=== PATIENT | male | born 1945 | race Caucasian/White ===

== ENCOUNTER → 2017-03-19 | Outpatient (REF) | payer MEDICARE, BC, OTHER | LOC: M LAB REF 16:16 | PROVIDERS: ATTEND Podiatrist | DX: L97.512 Non-pressure chronic ulcer of other part of right foot with fat layer exposed (principal); L89.893 Pressure ulcer of other site, stage 3 ==

== ENCOUNTER 2018-04-29 08:51 | Day surgery (SDC) | payer MEDICARE, BC, OTHER ==
[2018-04-29] MEDS: NS 1,000 ML IV (09:15)
[2018-04-29] MEDS ORDERED: LIDOCAINE 2% INJ 100 MG/5 ML SDV (FOR ANES.) As Ordered (11:08)
[2018-04-29] MEDS ORDERED: PROPOFOL 500 MG/50 ML VIAL As Ordered (11:08)
== END 2018-04-29 11:51 | disposition home or self-care (01) ==
LOC: M OPP 08:51
DX: Z08 Encounter for follow-up examination after completed treatment for malignant neoplasm (principal); Z85.038 Personal history of other malignant neoplasm of large intestine; Z86.010 Personal history of colon polyps; Z98.0 Intestinal bypass and anastomosis status; D12.4 Benign neoplasm of descending colon; K64.0 First degree hemorrhoids; K57.30 Diverticulosis of large intestine without perforation or abscess without bleeding; R00.8 Other abnormalities of heart beat; Z86.79 Personal history of other diseases of the circulatory system; I48.91 Unspecified atrial fibrillation; I10 Essential (primary) hypertension; E78.5 Hyperlipidemia, unspecified; E11.9 Type 2 diabetes mellitus without complications; M10.9 Gout, unspecified; E03.9 Hypothyroidism, unspecified; G62.9 Polyneuropathy, unspecified; Z94.0 Kidney transplant status; Q61.3 Polycystic kidney, unspecified; T38.7X5D Adverse effect of androgens and anabolic congeners, subsequent encounter; Z87.442 Personal history of urinary calculi; Z96.643 Presence of artificial hip joint, bilateral; Z87.891 Personal history of nicotine dependence; Z79.82 Long term (current) use of aspirin; Z79.899 Other long term (current) drug therapy; Z79.84 Long term (current) use of oral hypoglycemic drugs; Z79.52 Long term (current) use of systemic steroids; Z80.8 Family history of malignant neoplasm of other organs or systems
CPT/HCPCS: 45385

== ENCOUNTER → 2019-03-03 | Outpatient (REF) | payer MEDICARE, OTHER ==
[~2019-03-03] MED LIST: ASPI81TA26 PO; COMB0.2S OS; DULO1CAP3; ENAL2.5T; GEMF600T5; GLIP5TAB8; IMUR50TA10 PO; METF500T13; PRED20TA PO; SYNT100T
== END ==
LOC: M LAB REF 15:16
PROVIDERS: ATTEND Internal Medicine Gastroenterology
DX: R19.7 Diarrhea, unspecified (principal)

== ENCOUNTER → 2019-03-03 | Outpatient (CLI) | payer MEDICARE, BC, OTHER ==
[2019-03-03 19:05] LABS: BASO % 0.2 % (0.0-1.0); EOS % 0.3 % (0.0-3.0); HEMATOCRIT 41.6 % (42.0-52.0); HEMOGLOBIN 13.8 g/dl (13.5-17.5); LYMPH # 1.3 10^3/uL (1.5-4.5); LYMPH % 14.2 % (24.0-44.0); MEAN CORPUSCULAR HEMOGLOBIN 31.9 pg (27.0-33.0); MEAN CORPUSCULAR HGB CONC 33.2 g/dl (32.0-36.5); MEAN CORPUSCULAR VOLUME 96.1 fl (80.0-96.0); MONO # 0.3 10^3/uL (0.0-0.8); MONO % 3.5 % (0.0-5.0); NEUTROPHILS # 7.3 10^3/uL (1.8-7.7); NEUTROPHILS % 81.5 % (36.0-66.0); PLATELET COUNT, AUTOMATED 186 10^3/uL (150-450); RED BLOOD COUNT 4.33 10^6/uL (4.30-6.10)
[2019-03-03 20:42] LABS: ALBUMIN 3.1 GM/DL (3.2-5.2); ALT/SGPT 7 U/L (12-78); BILIRUBIN,TOTAL 0.4 MG/DL (0.2-1.0); BLOOD UREA NITROGEN 35 MG/DL (7-18); C REACTIVE PROTEIN QUANTITATIV < 0.30 MG/DL (0.00-0.30); CALCIUM LEVEL 8.5 MG/DL (8.8-10.2); CARBON DIOXIDE LEVEL 23 MEQ/L (21-32); CHLORIDE LEVEL 104 MEQ/L (98-107); CREATININE FOR GFR 1.42 MG/DL (0.70-1.30); GLUCOSE, FASTING 250 MG/DL (70-100); POTASSIUM SERUM 4.6 MEQ/L (3.5-5.1); SODIUM LEVEL 137 MEQ/L (136-145); TOTAL PROTEIN 5.9 GM/DL (6.4-8.2)
== END ==
LOC: M SMT 14:56
PROVIDERS: ATTEND Internal Medicine Gastroenterology
DX: R19.7 Diarrhea, unspecified (principal)

== ENCOUNTER 2020-03-25 22:16 | Inpatient (IN) | payer MEDICARE, BC, OTHER ==
[~2020-03-25] VITALS: Ht 190.5 cm; Wt 96.2 kg
[~2020-03-25 22:16] MED LIST changes: -DULO1CAP3; +DULO1CAP6 PO; -ENAL2.5T; +ENAL2.5T PO; -GEMF600T5; +GEMF600T5 PO; -GLIP5TAB8; +GLIP5TAB8 PO; -SYNT100T; +SYNT100T PO
[2020-03-25] MEDS ORDERED: NS 1,000 ML IV SCH ×2 (22:34→23:33)
[2020-03-25] MEDS ORDERED: MORPHINE 4 MG/ML 1ML VIAL/SYRINGE (J2270) IV ONE (22:45)
[2020-03-25] MEDS ORDERED: ONDANSETRON 4MG/2ML VIAL IV ONE (22:45)
[2020-03-25 22:50] LABS: HEMATOCRIT 35.4 % (42.0-52.0); HEMOGLOBIN 11.9 g/dl (13.5-17.5); MEAN CORPUSCULAR HEMOGLOBIN 30.1 pg (27.0-33.0); MEAN CORPUSCULAR HGB CONC 33.6 g/dl (32.0-36.5); MEAN CORPUSCULAR VOLUME 89.4 fl (80.0-96.0); PLATELET COUNT, AUTOMATED 150 10^3/uL (150-450); RED BLOOD COUNT 3.96 10^6/uL (4.30-6.10); WHITE BLOOD COUNT 12.8 10^3/uL (4.0-10.0)
[2020-03-25 23:01] LABS: INR 1.35; PROTHROMBIN TIME 16.4 SECONDS (11.8-14.0)
[2020-03-25 23:02] LABS: PARTIAL THROMBOPLASTIN TIME 46.8 SECONDS (25.0-38.4)
[2020-03-25 23:11] LABS: ANISOCYTOSIS 1+; LYMPHOCYTES 6 % (16-44); MONOCYTES 4 % (0-5); NEUTROPHILS 89 % (28-66); NUCLEATED RED BLOOD CELL 1 % (0-0)
[2020-03-25 23:12] LABS: PLATELET ESTIMATE NORMAL (NORMAL)
[2020-03-25] MEDS ORDERED: DEXTROSE 50% 50 ML SYRINGE IV STA (23:21)
[2020-03-25] MEDS ORDERED: DEXTROSE 50% 50 ML SYRINGE As Ordered ONE (23:22)
[2020-03-25 23:33] LABS: CALCIUM LEVEL 8.1 MG/DL (8.8-10.2); CREATININE FOR GFR 1.66 MG/DL (0.70-1.30); GLOMERULAR FILTRATION RATE 43.3 (>42); POTASSIUM SERUM 4.5 MEQ/L (3.5-5.1)
[2020-03-25] MEDS ORDERED: fentaNYL 100 MCG/2 ML INJECTION (J3010) IV PRN (23:45)
[2020-03-25] MEDS: MIDAZOLAM INJ 2MG/2ML VIAL (J2250 PER 1MG) IV PRN ×2 (23:50→23:55)
[2020-03-26] MEDS: MIDAZOLAM INJ 2MG/2ML VIAL (J2250 PER 1MG) IV PRN
[2020-03-26] MEDS ORDERED: DEXTROSE 50% 50 ML SYRINGE IV STA (00:21)
[2020-03-26] MEDS: D5W/0.9% SODIUM CHLORIDE 1,000 ML IV SCH ×2 (00:29→15:02)
[2020-03-26] MEDS ORDERED: MICR1TAB5 PO (00:44)
[2020-03-26] MEDS ORDERED: PERCOCET 5MG/325MG TAB PO PRN (01:00)
--- NOTE | 2020-03-26 01:34 | HPEPDOC ---
[facility] Medical History & Physical Date of Admission Mar 26, 2020 Date of Service: Mar 26, 2020 Attending Physician: BASIM LUNDBERG MD History and Physical CHIEF COMPLAINT: Fall HISTORY OF PRESENT ILLNESS: 74-year-old male with past medical history of diabetes mellitus, polycystic kidney disease status post renal transplant, hypertension and hypothyroidism presents from home after fall. Patient was walking to the bathroom, while leaning forward to sit down he fell, denies loss of consciousness, no other symptoms prior to or after the fall. Imaging in the ED consistent with left hip dislocation, underwent closed reduction in the emergency department. Patient appears comfortable, now pain-free at this time. He was found to be hypoglycemic in the emergency department, reports taking glipizide, poor oral intake for the past 1-2 days. He denies any shortness of breath, chest pain, nausea, vomiting, diarrhea or constipation. 10 point review of systems negative except for above PAST MEDICAL HISTORY: 1. Diabetes mellitus. 2. Hypertension. 3. Polycystic kidney disease. PAST SURGICAL HISTORY: 1. Renal transplant. 2. Hip replacements. 3. Cholecystectomy. SOCIAL HISTORY: Denies smoking Denies alcohol use. Denies drug use FAMILY HISTORY: Positive for heart disease ALLERGIES: Please see below. HOME MEDICATIONS: Please see below. PHYSICAL EXAMINATION: VITAL SIGNS: Please see below. GENERAL: No distress HEENT: Normocephalic, atraumatic, moist mucous membranes NECK: Supple CARDIOVASCULAR EXAMINATION: S1, S2, no murmurs RESPIRATORY EXAMINATION: Clear to auscultation, no wheezing ABDOMINAL EXAMINATION: Soft, nontender, nondistended, positive bowel sounds EXTREMITIES: No edema SKIN: No rash NEUROLOGICAL EXAMINATION: Alert and oriented 3, no focal deficits PSYCHIATRIC EXAMINATION: Calm and cooperative LABORATORY DATA: See below. IMAGING: Pelvic/fever x-ray showing left hip dislocation MICROBIOLOGY: Please see below. ASSESSMENT: 74-year-old male with past medical history of pulses kidney disease, status post transplant, diabetes mellitus and hypertension is being admitted for left hip dislocation and hypoglycemia. PLAN: 1. Left hip dislocation. Secondary to fall, reduced in the ER, orthopedic eval pending in the morning, pain control. 2. Hypoglycemia. Secondary to glipizide, received dextrose in the ER, continue IV fluids with dextrose, will repeat fingerstick. 3. Diabetes mellitus. Sliding scale insulin coverage with meals and at bedtime. 4. Hypertension. Continue enalapril 5. Polycystic kidney disease. Status post renal transplant, continue prednisone and azathioprine. DVT prophylaxis: Heparin subcutaneous GI prophylaxis: Not needed Vital Signs Vital Signs Date Time Temp Pulse Resp B/P (MAP) Pulse Ox O2 Delivery O2 Flow Rate FiO2 03/26/20 00:45 89 16 126/60 (82) 98 Room Air 03/25/20 23:55 4.0 03/25/20 22:27 97.8 Laboratory Data Labs 24H Laboratory Tests 2 03/25/20 22:38: Neutrophils (%) (Auto) , Nucleated Red Blood Cells % (auto) 0.0, Neutrophils 89H, Band Neutrophils 1, Lymphocytes (Manual) 6L, Monocytes (Manual) 4, Nucleated Red Blood Cells 1H, Anisocytosis 1+, Platelet Estimate NORMAL, Prothrombin Time 16.4H, Prothromb Time International Ratio 1.35, Activated Partial Thromboplast Time 46.8H, Anion Gap 11, Glomerular Filtration Rate 43.3, Calcium Level 8.1L 03/25/20 23:20: Bedside Glucose (Misc Panel) 38*L 03/25/20 23:54: Bedside Glucose (Misc Panel) 98 03/26/20 00:20: Bedside Glucose (Misc Panel) 63L CBC/BMP Laboratory Tests 03/25/20 22:38 Home Medications Scheduled Aspirin (Aspirin EC) 81 Mg Tab, 81 MG PO DAILY Azathioprine (Imuran) 50 Mg Tab, 150 MG PO DAILY Brimonidine Tartrate/Timolol (Combigan 0.2%-0.5% Eye Drops) 1 Disha Disha, OS BID Colestipol HCl (Micronized Colestipol HCl) 1 Gm Tablet, 2 GM PO BID Duloxetine Hcl (Duloxetine HCl) 60 Mg Cap, DAILY Enalapril Maleate (Enalapril Maleate) 2.5 Mg Tab, DAILY Gemfibrozil (Gemfibrozil) 600 Mg Tab, TID Glipizide (Glipizide) 5 Mg Tab, BID Levothyroxine Sodium (Synthroid) 100 Mcg Tab, DAILY Metformin HCl (Metformin HCl) 500 Mg Tab, BID Prednisone (Prednisone) 20 Mg Tab, 20 MG PO Q2D Allergies Coded Allergies: No Known Allergies (Unverified , 04/25/18) A-FIB/CHADSVASC A-FIB History Current/History of A-Fib/PAF?: No GONDAL,KHUBAIB N. MD Mar 26, 2020 01:34
[2020-03-26] MEDS ORDERED: GLUCAGON INJ 1MG VIAL SC PRN (02:00)
[2020-03-26] MEDS ORDERED: GLUCOSE 4GM CHEW TABLET PO PRN (02:00)
[2020-03-26 02:09] VITALS: BP 102/54
[2020-03-26] MEDS: DEXTROSE 50% 50 ML SYRINGE IV PRN ×4 (02:58→07:20)
--- NOTE | 2020-03-26 03:16 | ECGEPIP ---
[facility] - ED Test Date: 2020-03-25 Pat Name: JAYY YANEZ Department: Room: - Gender: Male [employer]: alexander : 1945 Requested By: Lexa Najera Order Number: [id number] Reading MD: Lexa Baker Measurements Intervals [place] Rate: 99 P: 68 NM: 161 QRS: -54 QRSD: 113 T: 31 QT: 342 QTc: 439 Interpretive Statements SINUS RHYTHM LEFT AXIS DEVIATION PATTERN CONSISTENT WITH PULMONARY DISEASE RIGHT BUNDLE BRANCH BLOCK NO PRIORS FOR COMPARISON Electronically Signed on 03-26-2020 3:15:56 EDT by Lexa Baker
[2020-03-26 04:00] VITALS: BP 112/58
[2020-03-26] MEDS: HumaLOG INSULIN (NovoLOG) PER UNIT SC SCH ×4 (07:23→21:00)
[2020-03-26 08:00] VITALS: BP 130/68
[2020-03-26] MEDS: HEPARIN SOD (PORCINE) 5000UNITS/ML VIAL (J1644 PER 1000UNITS) SC SCH ×2 (08:19→21:26)
[2020-03-26] MEDS: PERCOCET 5MG/325MG TAB PO PRN (08:20)
--- NOTE | 2020-03-26 08:34 | REP ---
REASON: Post reduction. COMPARISON: Pre-reduction 03/25/2020. Only a single AP view was obtained. When compared to the prior AP view of the left hip, the dislocated prosthesis at the femoral acetabular junction appears to have been reduced. There is no evidence of an acute fracture. Electronically Signed by Kan Shearer DO 03/26/2020 09:22 A
--- NOTE | 2020-03-26 08:35 | REP ---
AP and lateral view of the left femur were obtained status post trauma. There is a left hip prosthesis with dislocation of the femoral acetabular component. There is no evidence of an acute fracture. IMPRESSION: Prosthetic dislocation. Electronically Signed by Kan Shearer DO 03/26/2020 09:22 A
--- NOTE | 2020-03-26 08:36 | REP ---
REASON: Trauma. COMPARISON: 06/24/2009 Bilateral hip prosthesis are noted. There is a left hip femoral acetabular dislocation. There is no evidence of a fracture. Two views of the left hip were included in this AP pelvis exam. The dislocation is posterior. IMPRESSION: Left hip prosthetic dislocation without evidence of an acute fracture as described above. Electronically Signed by Kan Shearer DO 03/26/2020 09:22 A
--- NOTE | 2020-03-26 08:37 | REP ---
REASON: Trauma. FINDINGS: The technique utilized in obtaining the radiograph has magnified the cardiac silhouette and accentuated the interstitial markings. The superior mediastinal structures are midline. The cardiac silhouette is unremarkable in size, shape, and position. The diaphragmatic surfaces of the lungs are regular, and the costophrenic angles are clear. The pulmonary soni are clear. The imaged osseous structures are intact. IMPRESSION: There is no acute cardiopulmonary disease. Electronically Signed by Kan Shearer DO 03/26/2020 09:22 A
[2020-03-26] MEDS: gemfibroziL 600 MG TAB PO SCH ×3 (10:21→21:26)
[2020-03-26] MEDS: azaTHIOprine 50 MG TAB (J7500) PO SCH (10:22)
[2020-03-26] MEDS: LEVOTHYROXINE 100MCG TABLET (0.1MG) PO SCH (10:22)
[2020-03-26] MEDS: predniSONE 20 MG TAB PO SCH (10:22)
[2020-03-26] MEDS: ASPIRIN 81 MG ENTERIC TAB PO SCH (10:22)
[2020-03-26] MEDS: DULoxetine 30 MG CAP (CYMBALTA) PO SCH (10:22)
[2020-03-26] MEDS ORDERED: MORPHINE 2 MG/ML 1ML VIAL (J2270) IV PRN (10:30)
[2020-03-26 12:00] VITALS: BP 102/60
[2020-03-26] MEDS: TIMOLOL MALEATE 0.5% OPHTH SOLN 5 ML OS SCH ×2 (12:12→21:26)
[2020-03-26] MEDS: BRIMONIDINE 0.1% OPHTH SOLN 5 ML OS SCH ×2 (12:12→21:26)
[2020-03-26 16:00] VITALS: BP 125/75
--- NOTE | 2020-03-26 16:31 | CR ---
DATE OF CONSULTATION: 03/26/2020 CHIEF COMPLAINT: Left hip dislocation. HISTORY OF PRESENT ILLNESS: 74-year-old gentleman, multiple medical comorbidities, hip replacements bilaterally, apparently done in the 80s by a doctor in [place], has not dislocated ever before. Lost his balance yesterday and fell, dislocated during the fall, was brought to the emergency room for further evaluation. He was seen and evaluated in the emergency room with 10/10 discomfort from the left hip and an obviously dislocated hip. He was reduced by the emergency room (ER) doctor, Dr. Baker, and admitted to the hospitalist service for further management of additional medical issues, as well as mobilization and safety. 10-point review of systems negative except for history of the present illness. PAST MEDICAL HISTORY: Includes diabetes, hypertension, polycystic kidney disease with transplant, hypothyroidism. PAST SURGICAL HISTORY: Includes renal transplant, bilateral hip replacements, cholecystectomy. SOCIAL HISTORY: Does not smoke, drink or use illicit drugs. He lives in [place] over the summer, and he lives in [place] over the winter. FAMILY HISTORY: Heart disease. MEDICATIONS: His medication list in the computer system was reviewed. CLINICAL EXAMINATION: He is alert, oriented, cooperative. Mood and affect are appropriate. He is a pleasant and reasonably healthy 74-year-old. He is not short of breath. He talks in complete sentences. There is no productive cough. He is not febrile. His abdomen is not distended. Extremities: Left lower extremity - he has significant degenerative deformity of the left lower extremity, which he reports is due to neuropathy and he is wearing a custom molded left lower extremity orthotic, custom molded AFO. Right lower extremity - he also wears custom molded shoe on that lower extremity. No effusion present in either knee. Leg lengths are equal. Incision on the left hip looks like a posterior approach, nontender with palpation around the left hip. He is in an abduction pillow. IMAGING STUDIES: He has got a dislocated hip on prereduction films and a reduced hip on reduction films. The prosthetic on reduction appears to be concentric, 28 mm head. I do not appreciate any radiolucencies or evidence of impending catastrophic failure. IMPRESSION: Status post prosthetic hip dislocation on the left, now reduced. RECOMMENDATIONS: Abduction pillow while in bed, progressive mobilization with physical therapy with strict dislocation precautions. Talked to the patient about natural history of hips, sometimes as hips start to wear, they are easier to dislocate. There is a possibility of re-dislocation. If he re-dislocates, we may need to consider a prosthetic brace until he becomes more stable. We also talked about the possibility of need for revision surgery, which also sometimes occurs with hip dislocation. The patient voiced an understanding of these concepts. I discussed the patient's orthopedic recommendations with Dr. Llanes, the hospitalist.
[2020-03-26 20:00] VITALS: BP 130/70
--- NOTE | 2020-03-26 22:17 | CR ---
DATE OF CONSULTATION: 03/26/2020 REASON FOR CONSULTATION: Acute kidney injury in this gentleman with transplant kidney. HISTORY OF PRESENT ILLNESS: Mr. Gonzalez is a 74-year-old gentleman with known history of type 2 diabetes, polycystic kidney disease, status post kidney transplant in 2007, history of hypertension and hypothyroidism. He presented to the emergency room last evening following a fall at home. He was found to have dislocated left hip, which was reduced in the emergency room. The patient was in severe pain and has been admitted. He reports that he did not eat or drink well when he was traveling from [place] to [facility] a couple of days ago. He denies any vomiting or diarrhea. He reports that his baseline creatinine is about 0.5, while here his creatinine was 1.5. PAST MEDICAL: 1. Type 2 diabetes. 2. Hypotension. 3. History of end-stage renal disease secondary to polycystic kidney disease. 4. History of hypothyroidism and hyperlipidemia. PAST SURGICAL HISTORY: Significant for kidney transplant, hip replacements and cholecystectomy. ALLERGIES: The patient has no known drug allergies. MEDICATIONS: His home medications include aspirin 81 mg daily, azathioprine 50 mg 3 tablets daily, colestipol 1 gram 2 tablets twice a day, Cymbalta 60 mg daily, enalapril 2.5 mg daily, gemfibrozil 600 mg three times a day, glipizide 5 mg twice a day, levothyroxine 100 mcg daily, metformin 500 mg twice a day and prednisone 20 mg every 2 days. SOCIAL HISTORY: The patient lives winter in [place] and comes to [facility] for summer. He denies any alcohol, smoking or drug use. FAMILY HISTORY: Significant for heart disease. There is no family history for kidney transplant. He does have family history for polycystic kidney disease. REVIEW OF SYSTEMS: Elderly gentleman in discomfort due to left hip pain. Ears, nose and throat are unremarkable. Cardiovascular system negative for dyspnea, chest pain or leg edema. Respiratory system negative for cough or hemoptysis. GI system is negative for vomiting or diarrhea. system is negative for dysuria or hematuria. He currently has a Garcia catheter in place. Musculoskeletal system is as per history of present illness. Hematological system negative for long-term anticoagulation. Endocrine system is significant for hypothyroidism and type 2 diabetes. Psychosocial system significant for depression. Neurological system negative for seizures or stroke. PHYSICAL EXAMINATION: Temperature 97 degrees Fahrenheit, heart rate 70 per minute and respiratory rate 18 per minute. Blood pressure 102/60 mmHg and oxygen saturation 98% on room air. Head is atraumatic. Neck: Supple and without JVD or thyroid enlargement. There is no oral thrush or ulcers. Heart: Sounds are regular. Lungs: Have good air entry and no wheezing or rales. Abdomen: Soft and nontender. An incisional hernia around his umbilical area is noted. He has a midline surgical scar from his gallbladder surgery which is old. Transplant kidney is nontender in right lower quadrant. Extremities have no cyanosis or clubbing. Neurologically, he is awake, alert and without a focal deficit. LABORATORY DATA: WBC count 12.8, hemoglobin 11.9 and hematocrit 35.4. Platelets 150. Sodium 134, potassium 4.5, CO2 of 17, BUN 45 and creatinine 1.66. Glucose was 34 and calcium 8.1. A fingerstick blood sugar is up to 93 at 9:36 a.m.. PROBLEMS: 1. End-stage renal disease. The patient has kidney transplant and he reports that his baseline creatinine is about 0.5. His kidney has been functioning well and he will continue with chronic immunosuppressive therapy, which is minimal and non nephrotoxic. 2. Acute renal failure most likely related to dehydration. He has a Garcia catheter so I do not feel there is any postobstructive problem. He is being hydrated with IV fluid and the patient is also being encouraged to increase his oral intake. Renal profile should be checked again tomorrow. 3. Metabolic acidosis probably related to acute renal failure. At present, I will hold off on sodium bicarbonate as he is being hydrated with IV normal saline. His renal profile should be checked again tomorrow morning. 4. Anemia. He has mild anemia and does not need any urgent intervention. 5. Hypertension. At present, his blood pressure is soft and we can hold his antihypertensive medications, particularly his inhibitor. Thank you for involving me in the care of Mr. Gonzalez. I will follow him along with you.
[2020-03-27] VITALS: BP 140/80
[2020-03-27] MEDS: D5W/0.9% SODIUM CHLORIDE 1,000 ML IV SCH (01:04)
[2020-03-27 04:00] VITALS: BP 132/70
[2020-03-27] MEDS: LEVOTHYROXINE 100MCG TABLET (0.1MG) PO SCH (05:24)
[2020-03-27 05:38] LABS: HEMATOCRIT 29.2 % (42.0-52.0); MEAN CORPUSCULAR HEMOGLOBIN 30.6 pg (27.0-33.0); MEAN CORPUSCULAR HGB CONC 33.9 g/dl (32.0-36.5); MEAN CORPUSCULAR VOLUME 90.1 fl (80.0-96.0); PLATELET COUNT, AUTOMATED 102 10^3/uL (150-450); RED BLOOD COUNT 3.24 10^6/uL (4.30-6.10); WHITE BLOOD COUNT 6.2 10^3/uL (4.0-10.0)
[2020-03-27 05:48] LABS: HEMOGLOBIN 9.9 g/dl (13.5-17.5)
[2020-03-27 06:16] LABS: ALBUMIN 1.8 GM/DL (3.2-5.2); ALT/SGPT 9 U/L (12-78); BILIRUBIN,TOTAL 0.3 MG/DL (0.2-1.0); BLOOD UREA NITROGEN 22 MG/DL (7-18); CALCIUM LEVEL 7.4 MG/DL (8.8-10.2); CARBON DIOXIDE LEVEL 18 MEQ/L (21-32); CHLORIDE LEVEL 113 MEQ/L (98-107); CREATININE FOR GFR 0.87 MG/DL (0.70-1.30); GLOMERULAR FILTRATION RATE > 60.0 (>42); GLUCOSE, FASTING 120 MG/DL (70-100); MAGNESIUM LEVEL 1.8 MG/DL (1.8-2.4); POTASSIUM SERUM 3.8 MEQ/L (3.5-5.1); SODIUM LEVEL 138 MEQ/L (136-145); TOTAL PROTEIN 4.8 GM/DL (6.4-8.2)
[2020-03-27 08:00] VITALS: BP 154/74
[2020-03-27] MEDS: HumaLOG INSULIN (NovoLOG) PER UNIT SC SCH ×4 (08:07→20:14)
[2020-03-27] MEDS: gemfibroziL 600 MG TAB PO SCH ×3 (08:07→20:03)
[2020-03-27] MEDS: ASPIRIN 81 MG ENTERIC TAB PO SCH (08:07)
[2020-03-27] MEDS: HEPARIN SOD (PORCINE) 5000UNITS/ML VIAL (J1644 PER 1000UNITS) SC SCH ×2 (08:07→20:04)
[2020-03-27] MEDS: DULoxetine 30 MG CAP (CYMBALTA) PO SCH (08:07)
[2020-03-27] MEDS: azaTHIOprine 50 MG TAB (J7500) PO SCH (08:08)
[2020-03-27] MEDS: BRIMONIDINE 0.1% OPHTH SOLN 5 ML OS SCH ×2 (08:08→20:04)
[2020-03-27] MEDS: TIMOLOL MALEATE 0.5% OPHTH SOLN 5 ML OS SCH ×2 (08:08→20:04)
--- NOTE | 2020-03-27 11:28 | IPNPDOC ---
Text Note Date of Service The patient was seen on 03/27/20. NOTE Subjective: Patient seen and examined at bedside. No acute overnight events reported. No medical complaints. Complains of some soreness with his left hip, but significantly improved from admission. Objective: General: NAD, lying comfortably in bed HEENT: NC/AT, EOMI Lungs: CTA B/L Heart: +S1S2, RRR Abd: soft, NT, +BS, midline surgical scar well healed Ext: no edema A/P: 74-year-old male with PMHx PCKD s/p right renal transplant, DM, HTN admitted for left hip dislocation, RANDELL. # Left hip dislocation - s/p prosthetic left hip dislocations s/p reduction in ER - discussed with ortho - eval appreciated - follow as per ortho - pain well controlled #Hypoglycemia - resolved #anemia/thrombocytopenia - possible dilutional - recheck CBC tomorrow am #DM - sliding scale insulin coverage with meals and at bedtime. #HTN - pressures have been low - holding home anti-hypertensives Continue enalapril #RANDELL - resolved - d/c IV fluids - tolerating diet, eating well #PCKD/s/p renal transplant - continue prednisone/azathioprine - nephrology c/s appreciated #DVT prophylaxis: Heparin subcutaneous VS,Fishbone, I+O VS, Fishbone, I+O Laboratory Tests 03/27/20 05:20 Vital Signs Date Time Temp Pulse Resp B/P (MAP) Pulse Ox O2 Delivery O2 Flow Rate FiO2 03/27/20 08:45 18 Room Air 03/27/20 08:00 96.4 70 154/74 (100) 100 03/25/20 23:55 4.0 I&O- Last 24 Hours up to 6 AM 03/27/20 06:00 Intake Total 3960 ml Output Total 900 ml Balance 3060 ml DEISY MARRUFO MD Mar 27, 2020 11:28
[2020-03-27 12:00] VITALS: BP 134/74
[2020-03-27] MEDS ORDERED: SLF 3 ML SYR IV PRN (12:00)
[2020-03-27] MEDS: SLF 3 ML SYR IV SCH ×2 (14:00→20:04)
[2020-03-27 16:00] VITALS: BP 148/78
[2020-03-27 22:00] VITALS: BP 148/78
[2020-03-28] MEDS: PERCOCET 5MG/325MG TAB PO PRN ×2 (01:38→17:09)
[2020-03-28 06:00] VITALS: BP 135/76
[2020-03-28] MEDS: LEVOTHYROXINE 100MCG TABLET (0.1MG) PO SCH (06:14)
[2020-03-28] MEDS: SLF 3 ML SYR IV SCH ×3 (06:14→21:08)
[2020-03-28 07:01] LABS: HEMOGLOBIN 9.9 g/dl (13.5-17.5); MEAN CORPUSCULAR HEMOGLOBIN 29.7 pg (27.0-33.0); MEAN CORPUSCULAR VOLUME 90.1 fl (80.0-96.0); PLATELET COUNT, AUTOMATED 100 10^3/uL (150-450); RED BLOOD COUNT 3.33 10^6/uL (4.30-6.10); WHITE BLOOD COUNT 5.5 10^3/uL (4.0-10.0)
[2020-03-28] MEDS: HumaLOG INSULIN (NovoLOG) PER UNIT SC SCH ×4 (07:28→20:19)
[2020-03-28] MEDS: ASPIRIN 81 MG ENTERIC TAB PO SCH (08:11)
[2020-03-28] MEDS: predniSONE 20 MG TAB PO SCH (08:11)
[2020-03-28] MEDS: azaTHIOprine 50 MG TAB (J7500) PO SCH (08:11)
[2020-03-28] MEDS: gemfibroziL 600 MG TAB PO SCH ×3 (08:11→21:08)
[2020-03-28] MEDS: DULoxetine 30 MG CAP (CYMBALTA) PO SCH (08:12)
[2020-03-28] MEDS: HEPARIN SOD (PORCINE) 5000UNITS/ML VIAL (J1644 PER 1000UNITS) SC SCH (08:12)
[2020-03-28] MEDS: TIMOLOL MALEATE 0.5% OPHTH SOLN 5 ML OS SCH ×2 (08:12→21:09)
[2020-03-28] MEDS: BRIMONIDINE 0.1% OPHTH SOLN 5 ML OS SCH ×2 (08:12→21:09)
[2020-03-28 08:20] LABS: ALBUMIN 1.7 GM/DL (3.2-5.2); BLOOD UREA NITROGEN 15 MG/DL (7-18); CALCIUM LEVEL 7.8 MG/DL (8.8-10.2); CARBON DIOXIDE LEVEL 19 MEQ/L (21-32); CHLORIDE LEVEL 112 MEQ/L (98-107); CREATININE FOR GFR 0.82 MG/DL (0.70-1.30); FERRITIN 399 NG/ML (26-388); GLOMERULAR FILTRATION RATE > 60.0 (>42); GLUCOSE, FASTING 81 MG/DL (70-100); IRON (FE) 23 UG/DL (65-175); PERCENT SATURATION 10.3 % (19.7-50.0); PHOSPHORUS LEVEL 1.8 MG/DL (2.5-4.9); POTASSIUM SERUM 4.3 MEQ/L (3.5-5.1); SODIUM LEVEL 138 MEQ/L (136-145); TOTAL IRON BINDING CAPACITY 224 UG/DL (250-450)
--- NOTE | 2020-03-28 09:18 | IPN ---
DATE: 03/27/2020 SUBJECTIVE: Patient was seen and examined at the bedside today morning. He was getting intravenous (IV) fluid hydration when I saw him in the morning. His renal function is improving. Creatinine has improved to 0.87 today. He was able to tolerate his breakfast today morning. He still reports some pain in the left hip. OBJECTIVE: Vital signs: Temperature is 96.8 degrees Fahrenheit, blood pressure 134/74, pulse is 65, respiratory rate of 18, saturating 96% on room air. Intake and output: Urine output recorded is 1.1 liters yesterday, 825 mL so far today since overnight. Weight on the bed scale is 96.2 kg. PHYSICAL EXAMINATION: General: Patient is awake, alert, oriented times three, laying in bed, in no apparent distress. Head and neck exam: Extraocular muscles intact. Pupils equally round and reactive to light. Mucous membranes are moist. Neck is supple. There is no jugular venous distention (JVD). Cardiovascular: S1, S2, regular rate. No edema of the bilateral lower extremities. Respiratory: Chest is clear to auscultation bilaterally. Bilateral equal air entry. No rales or rhonchi. Abdomen: Is soft. Positive bowel sounds. Nontender. No organomegaly. Musculoskeletal: Patient has an abduction pillow between the legs. No clubbing or cyanosis of the lower extremities. Decreased range of movement of the legs because of abduction pillow. Central nervous system (HUNTER TRAPPER): No focal deficit. Power is 5/5 in bilateral upper extremities. LAB REVIEW: CBC showed a WBC of 6.2, hemoglobin 9.9, platelets of 102. BMP showed sodium 138, potassium 3.8, chloride 113, bicarbonate 18, BUN 22, creatinine is 0.87, calcium 7.4, magnesium is 1.8, albumin 1.8. CURRENT INPATIENT MEDICATIONS: Patient's medications were all reviewed by myself. He was getting D5 normal saline at 100 mL/h, which was stopped today. No other significant change in the medications today as compared with yesterday. ASSESSMENT AND PLAN: 1. Acute kidney injury of renal allograft. It is secondary to dehydration. Patient got IV fluid hydration. Creatinine has nicely improved to 0.87. Continue to encourage oral hydration. IV fluids have been stopped. 2. Metabolic acidosis. It is secondary to acute renal failure. Patient's bicarbonate is slowly improving. It has improved to 18. No need of IV bicarbonate administration. If bicarbonate stays low by tomorrow, then he will be started on oral bicarbonate. 3. Renal allograft status. Patient's renal function is improving with IV fluid hydration. Continue current immunosuppression with azathioprine 150 mg by mouth daily and prednisone 20 mg by mouth every 48 hourly. 4. Anemia on chronic kidney disease. Patient recently had reduction of the left hip dislocated prosthesis. Hemoglobin is 9.9; it is optimal at this time. Transfuse as needed for hemoglobin below 8. 5. Dislocation of the left hip prosthesis. He is status post reduction. Management is as per orthopedic surgery and the primary team. 6. History of hypertension. Patient was hypotensive. Antihypertensive medications are on hold. Blood pressure is in acceptable range at this time.
[2020-03-28] MEDS: BICITRA 30ML SOLN UDC PO SCH ×2 (12:02→21:08)
--- NOTE | 2020-03-28 12:41 | IPNPDOC ---
Text Note Date of Service The patient was seen on 03/28/20. NOTE Subjective: Patient seen and examined at bedside. No acute overnight events reported. No medical complaints. Complains of some soreness with his left hip, but significantly improved from admission. Objective: General: NAD, lying comfortably in bed HEENT: NC/AT, EOMI Lungs: CTA B/L Heart: +S1S2, RRR Abd: soft, NT, +BS, midline surgical scar well healed Ext: no edema A/P: 74-year-old male with PMHx PCKD s/p right renal transplant, DM, HTN admitted for left hip dislocation, RANDELL. # Left hip dislocation - s/p prosthetic left hip dislocations s/p reduction in ER - discussed with ortho - eval appreciated - follow as per ortho - pain well controlled #Hypoglycemia - resolved #anemia - stable #thrombocytopenia - grossly stable #DM - sliding scale insulin coverage with meals and at bedtime. #HTN - pressures have been low - holding home anti-hypertensives Continue enalapril #RANDELL - resolved - d/c IV fluids - tolerating diet, eating well - follow as per nephrology assistance appreciated #PCKD/s/p renal transplant - continue prednisone/azathioprine - nephrology c/s appreciated #DVT prophylaxis: mechanical VS,Fishbone, I+O VS, Fishbone, I+O Laboratory Tests 03/28/20 06:33 Vital Signs Date Time Temp Pulse Resp B/P (MAP) Pulse Ox O2 Delivery O2 Flow Rate FiO2 03/28/20 06:00 97.7 73 17 135/76 (95) 98 Room Air 03/25/20 23:55 4.0 I&O- Last 24 Hours up to 6 AM 03/28/20 06:00 Intake Total 2810 ml Output Total 1350 ml Balance 1460 ml DEISY MARRUFO MD Mar 28, 2020 12:41
[2020-03-28 14:00] VITALS: BP 131/75
[2020-03-28] MEDS: IRON SUCROSE 200 MG in NS 100 ML IV SCH (14:02)
[2020-03-28 22:00] VITALS: BP 145/82
[2020-03-29] MEDS: SLF 3 ML SYR IV SCH ×3 (05:44→22:00)
[2020-03-29] MEDS: LEVOTHYROXINE 100MCG TABLET (0.1MG) PO SCH (05:58)
[2020-03-29 06:00] VITALS: BP 150/86
--- NOTE | 2020-03-29 07:23 | IPN ---
DATE: 03/28/2020 SUBJECTIVE: The patient was seen and examined at the bedside today morning. The patient is afebrile, hemodynamically stable. He still reports that he has not started walking. He has an abduction pillow between the legs. Renal function is stable and metabolic acidosis is slightly improving. OBJECTIVE: Vital Signs: Temperature is 97.6 degrees Fahrenheit, blood pressure 145/82, pulse is 71, respiratory rate of 17, saturating 99% on room air. Intake and Output: Urine output recorded as 1.1 liters yesterday, 1.3 liters so far today since overnight. Weight in the bed scale was 96.2 kg yesterday. PHYSICAL EXAMINATION: General: The patient is awake, alert, oriented x3, laying in bed, in no apparent distress. Head and Neck Exam: Extraocular muscles intact. Pupils equally round and reactive to light. Mucous membranes are moist. Neck is supple. There is no jugular venous distention (JVD). Cardiovascular: S1, S2. Regular rate. No edema of the bilateral lower extremities. Respiratory: Chest is clear to auscultation bilaterally. Bilateral equal air entry. No rales or rhonchi. Abdomen: Soft. Positive bowel sounds. Nontender. No organomegaly. Renal allograft is nontender. Musculoskeletal: Patient has an abduction pillow because of recent dislocation of left hip. DIRECTOR OF LITIGATION: No focal deficit. Power is 5/5 in bilateral upper extremities. LAB REVIEW: CBC showed a WBC of 5.5, hemoglobin 9.9 and platelets are 100. BMP showed a sodium of 138, potassium 4.3, chloride 112, bicarb 19, BUN 15, creatinine 0.82, calcium 7.8, phosphorus 1.8, iron 23, TIBC 224, transferrin saturation 10.3, and ferritin is 399. CURRENT INPATIENT MEDICATIONS: The patient's medications were all reviewed by myself. I have started him on IV Venofer 200 mg daily for a total of three doses. I have also started the patient on Bicitra 30 mL by mouth twice a day. No other significant change in the medications today as compared with yesterday. ASSESSMENT/PLAN: 1. Acute kidney injury. Renal function has improved. Creatinine is stable at 0.87. Continue to encourage oral hydration. 2. Renal allograft status. Renal function is stable now. Continue current dose of azathioprine and prednisone for immunosuppression. 3. Metabolic acidosis. Bicarb level is still suboptimal. He has been started on Bicitra 30 mL by mouth twice a day. 4. Iron deficiency anemia. I have started the patient on IV Venofer. No need of Aranesp administration at this time since iron levels are low. 5. Diabetes mellitus type 2. The patient sulfonylurea is on hold because of hypoglycemia. Currently, he is getting insulin sliding scale only.
[2020-03-29] MEDS: DULoxetine 30 MG CAP (CYMBALTA) PO SCH (07:58)
[2020-03-29] MEDS: HumaLOG INSULIN (NovoLOG) PER UNIT SC SCH ×4 (07:58→20:28)
[2020-03-29] MEDS: ASPIRIN 81 MG ENTERIC TAB PO SCH (07:58)
[2020-03-29] MEDS: BICITRA 30ML SOLN UDC PO SCH ×2 (07:58→22:19)
[2020-03-29] MEDS: BRIMONIDINE 0.1% OPHTH SOLN 5 ML OS SCH ×2 (07:59→22:19)
[2020-03-29] MEDS: azaTHIOprine 50 MG TAB (J7500) PO SCH (07:59)
[2020-03-29] MEDS: gemfibroziL 600 MG TAB PO SCH ×3 (07:59→22:19)
[2020-03-29] MEDS: TIMOLOL MALEATE 0.5% OPHTH SOLN 5 ML OS SCH ×2 (07:59→22:19)
[2020-03-29] MEDS: PERCOCET 5MG/325MG TAB PO PRN ×3 (08:05→22:20)
[2020-03-29] MEDS: IRON SUCROSE 200 MG in NS 100 ML IV SCH (09:00)
[2020-03-29 10:54] LABS: ALBUMIN 1.7 GM/DL (3.2-5.2); BLOOD UREA NITROGEN 16 MG/DL (7-18); CARBON DIOXIDE LEVEL 21 MEQ/L (21-32); CHLORIDE LEVEL 108 MEQ/L (98-107); CREATININE FOR GFR 0.79 MG/DL (0.70-1.30); GLOMERULAR FILTRATION RATE > 60.0 (>42); GLUCOSE, FASTING 185 MG/DL (70-100); PHOSPHORUS LEVEL 1.4 MG/DL (2.5-4.9); POTASSIUM SERUM 3.9 MEQ/L (3.5-5.1); SODIUM LEVEL 137 MEQ/L (136-145)
--- NOTE | 2020-03-29 11:45 | IPNPDOC ---
Text Note Date of Service The patient was seen on 03/29/20. NOTE Subjective: Patient seen and examined at bedside. No acute overnight events reported. He states his left hip pain has resolved, but now notes right hip pain. Objective: General: NAD, lying comfortably in bed HEENT: NC/AT, EOMI Lungs: CTA B/L Heart: +S1S2, RRR Abd: soft, NT, +BS, midline surgical scar well healed Ext: no edema A/P: 74-year-old male with PMHx PCKD s/p right renal transplant, DM, HTN admitted for left hip dislocation, RANDELL. # Left hip dislocation - s/p prosthetic left hip dislocations s/p reduction in ER - discussed with ortho - eval appreciated - follow as per ortho - pain well controlled - PT eval pending - likely will need rehab #Hypoglycemia - resolved #anemia - stable #thrombocytopenia - grossly stable #DM - sliding scale insulin coverage with meals and at bedtime. #HTN - pressures have been low - holding home anti-hypertensives Continue enalapril #RANDELL - resolved - d/c IV fluids - tolerating diet, eating well - follow as per nephrology assistance appreciated #PCKD/s/p renal transplant - continue prednisone/azathioprine - nephrology c/s appreciated #DVT prophylaxis: mechanical Dispo: pending PT eval, likely will need rehab VS,Quiquee, I+O VS, Fishbone, I+O Laboratory Tests 03/29/20 10:09 Vital Signs Date Time Temp Pulse Resp B/P (MAP) Pulse Ox O2 Delivery O2 Flow Rate FiO2 03/29/20 08:35 15 03/29/20 06:00 98.0 72 150/86 (107) 99 Room Air 03/25/20 23:55 4.0 I&O- Last 24 Hours up to 6 AM 03/29/20 06:00 Intake Total 800 ml Output Total 1890 ml Balance -1090 ml DEISY MARRUFO MD Mar 29, 2020 11:45
[2020-03-29 14:00] VITALS: BP 140/82
--- NOTE | 2020-03-29 14:17 | REP ---
RIGHT HIP: Two views. HISTORY: Pain. FINDINGS: AP and frog-leg views of the right hip demonstrate a right hip prosthesis in good position. There is a small amount of heterotopic bone formation superior and lateral to the prosthetic right hip. Vascular calcification is noted. No erosive changes seen. There are surgical clips in the right pelvis. IMPRESSION: Status post right hip arthroplasty. No acute bony abnormality. Electronically Signed by Saulo Lowry MD 03/29/2020 02:59 P
--- NOTE | 2020-03-29 19:25 | IPN ---
DATE: 03/29/2020 Mr. Gonzalez was seen and examined this morning during bedside rounds. He was laying comfortably in the bed. He does complain of having right hip discomfort even though his left hip is the one that was dislocated. He has noted that his left hip pain has resolved completely and his right hip continues to persist. He was supposed to work with physical therapy (PT) today but did not for he does have that right hip pain. He denies any nausea, vomiting, diarrhea, any change in urine color, any change in urine frequency or dysuria. He has no other new complaints this morning. No overnight events were reported by nursing. PHYSICAL EXAM: Vital Signs: Temperature 98.0, pulse 72, respirations 18, blood pressure 150/86 (107), pulse oximetry 99% on room air. Intake total: 1520 mL, output total 1450 mL with a balance of positive 70 mL. No weight was taken this morning. General: This is a very pleasant 74-year-old male who does not appear in acute distress, laying comfortably in the bed with a foam pad between his legs. HEENT: Atraumatic, normocephalic. Pupils equal, round and reactive. Lungs: Clear to auscultation bilaterally. No audible wheezing, rhonchi or rales. Heart: Positive S1, S2 sounds present. Regular rate and rhythm. No audible murmurs, rubs or gallops. Abdomen: Soft, nontender. Positive bowel sounds in all four quadrants. Well-healed midline surgical scar appreciated. No tenderness to palpation. Extremities: No lower extremity edema noted. Does have a foam between his legs. Elicits tenderness to palpation on the right hip. No erythema. No swelling noted. No skin breakdown noted. Left hip healing appropriately. LABORATORY: Chemistry: Sodium 137, potassium 3.9, chloride 108, carbon dioxide 29, anion gap 8, BUN 16, creatinine 0.79, fasting glucose 185, calcium 8.0, phosphorus 1.4, albumin 1.7. ASSESSMENT AND PLAN: 1. Acute kidney injury, resolved. BUN and creatinine has improved. He is tolerating oral hydration very well. 2. Renal allograft status. Renal function is stable. Will continue with azathioprine and prednisone for immunosuppression. He is on 20 mg every other day for his prednisone. He states he has been taking this dose since the 80s and has been tolerating it very well, so we will not adjust that. 3. Metabolic acidosis. His bicarbonate level is optimal now at 21 after getting Bicitra 30 mL twice a day twice a day for a total of four doses. Will continue to completion. 4. Iron deficiency anemia. He was ordered three doses of Venofer, which he is tolerating very well. 5. Type 2 diabetes. Continue with insulin sliding scale. From a nephrology standpoint, the patient is stable and will be signing off. If there is any future recommendations, please give us a call, please re-consult us.
[2020-03-29 22:00] VITALS: BP 140/82
[2020-03-30] MEDS: PERCOCET 5MG/325MG TAB PO PRN ×2 (04:36→11:40)
[2020-03-30] MEDS: SLF 3 ML SYR IV SCH ×2 (05:11→12:48)
[2020-03-30 06:00] VITALS: BP 136/72
[2020-03-30] MEDS: LEVOTHYROXINE 100MCG TABLET (0.1MG) PO SCH (06:18)
[2020-03-30] MEDS: HumaLOG INSULIN (NovoLOG) PER UNIT SC SCH ×2 (07:30→12:35)
[2020-03-30] MEDS: IRON SUCROSE 200 MG in NS 100 ML IV SCH (09:00)
[2020-03-30] MEDS: gemfibroziL 600 MG TAB PO SCH (09:19)
[2020-03-30] MEDS: ASPIRIN 81 MG ENTERIC TAB PO SCH (09:19)
[2020-03-30] MEDS: DULoxetine 30 MG CAP (CYMBALTA) PO SCH (09:19)
[2020-03-30] MEDS: BRIMONIDINE 0.1% OPHTH SOLN 5 ML OS SCH (09:19)
[2020-03-30] MEDS: predniSONE 20 MG TAB PO SCH (09:19)
[2020-03-30] MEDS: TIMOLOL MALEATE 0.5% OPHTH SOLN 5 ML OS SCH (09:19)
[2020-03-30] MEDS: azaTHIOprine 50 MG TAB (J7500) PO SCH (09:19)
--- NOTE | 2020-03-30 12:48 | DS.PDOC ---
Discharge Summary General Date of Admission Mar 26, 2020 at 00:50 Date of Discharge 03/30/20 Discharge Summary CHIEF COMPLAINT: Fall Final diagnosis Hypoglycemia Left hip dislocation HISTORY OF PRESENT ILLNESS: 74-year-old male with past medical history of diabetes mellitus, polycystic kidney disease status post renal transplant, hypertension and hypothyroidism presents from home after fall. Patient was walking to the bathroom, while leaning forward to sit down he fell, denies loss of consciousness, no other symptoms prior to or after the fall. Imaging in the ED consistent with left hip dislocation, underwent closed reduction in the emergency department. He was found to be hypoglycemic in the emergency department, reports taking glipizide, poor oral intake for the past 1-2 days. He denies any shortness of breath, chest pain, nausea, vomiting, diarrhea or constipation.orthopedics for the patient and they advised Abduction pillow while in bed, progressive mobilization with physical therapy with strict dislocation precautions. They advised the patient about natural history of hips, sometimes as hips start to wear, they are easier to dislocate. There is a possibility of re-dislocation. If he re-dislocates, we may need to consider a prosthetic brace until he becomes more stable. The patient is doing clinically better now and a RU screen was done and the patient is being discharged to rehabilitation inpatient. His hypoglycemia has resolved as he has been eating fine and his glipizide will be resumed on discharge. He is clinically stable to go back to aRU now. The patient was on 2 mg every 4 hours when necessary of morphine and we will let the rehabilitation physicians decide about further pain medications. He also be continued on his heparin as well as prednisone for his renal transplant. Nephrology also has cleared him for discharge. PHYSICAL EXAMINATION: General: The patient is awake, alert, oriented x3 Head and Neck Exam: Extraocular muscles intact. Pupils equally round and reactive to light. Mucous membranes are moist. Neck is supple. There is no jugular venous distention (JVD). Cardiovascular: S1 and S2, regular rate. Trace edema of the bilateral lower extremities. Respiratory: Lungs are clear auscultation bilaterally Abdomen: Soft. Positive bowel sounds. Nontender. No organomegaly. Musculoskeletal: Clubbing of the fingernails, no cyanosis was noted. Central Nervous System (TEAROOM HOST/HOSTESS): No focal deficit. Power is 5/5 in all extremities. Slight difficulty in range of motion of left hip Medications. As per discharge reconciliation medication list Activity as tolerated Diet. 2 g sodium diet Follow-up appointments. PCP in 1 week, nephrology in 1 week. Condition on discharge. Patient is medically optimized for discharge Discharge disposition: Home Total time spent on this discharge including coordination of care, review of chart documentation and actual contact is around 35 minutes Vital Signs/I&Os Vital Signs Date Time Temp Pulse Resp B/P (MAP) Pulse Ox O2 Delivery O2 Flow Rate FiO2 03/30/20 11:40 18 Room Air 03/30/20 06:00 98.4 85 136/72 (93) 98 03/25/20 23:55 4.0 I&O- Last 24 Hours up to 6 AM 03/30/20 05:59 Intake Total 1260 ml Output Total 1240 ml Balance 20 ml Laboratory Data Labs 24H Laboratory Tests 2 03/29/20 17:02: Bedside Glucose (Misc Panel) 149H 03/29/20 20:06: Bedside Glucose (Misc Panel) 155H 03/30/20 05:04: Bedside Glucose (Misc Panel) 129H 03/30/20 12:13: Bedside Glucose (Misc Panel) 187H FSBS Laboratory Tests Test 03/29/20 17:02 03/29/20 20:06 03/30/20 05:04 03/30/20 12:13 Range/Units Bedside Glucose (Misc Panel) 149 155 129 187 83-110 MG/DL Discharge Medications Scheduled Aspirin (Aspirin EC) 81 Mg Tab, 81 MG PO DAILY, (Reported) Azathioprine (Imuran) 50 Mg Tab, 150 MG PO DAILY, (Reported) Brimonidine Tartrate/Timolol (Combigan 0.2%-0.5% Eye Drops) 1 Disha Disha, 1 DROP OS BID, (Reported) Colestipol HCl (Micronized Colestipol HCl) 1 Gm Tablet, 2 GM PO BID, (Reported) Duloxetine Hcl (Duloxetine HCl) 60 Mg Cap, 60 MG PO DAILY, (Reported) Enalapril Maleate (Enalapril Maleate) 2.5 Mg Tab, 2.5 MG PO DAILY, (Reported) Gemfibrozil (Gemfibrozil) 600 Mg Tab, 600 MG PO TID, (Reported) Glipizide (Glipizide) 5 Mg Tab, 5 MG PO BID, (Reported) Levothyroxine Sodium (Synthroid) 100 Mcg Tab, 100 MCG PO DAILY, (Reported) Prednisone (Prednisone) 20 Mg Tab, 20 MG PO Q2D, (Reported) Allergies Coded Allergies: No Known Allergies (Unverified , 04/25/18) JUAN RAGLAND MD Mar 30, 2020 12:40
[2020-03-30 14:00] VITALS: BP 132/72
== END 2020-03-30 15:15 | DRG 560 ==
LOC: M ED 22:16 → M ED INP 03-26 00:50 → ENRESERV 03-26 01:40 → M PCU 03-26 02:22 → M MS5PR 03-27 16:11
PROVIDERS: ADMIT Internal Medicine; ATTEND Internal Medicine
DX: T84.021A Dislocation of internal left hip prosthesis, initial encounter (principal); Z94.0 Kidney transplant status; Q61.3 Polycystic kidney, unspecified; E87.2 Acidosis; N17.9 Acute kidney failure, unspecified; E11.649 Type 2 diabetes mellitus with hypoglycemia without coma; I10 Essential (primary) hypertension; E03.9 Hypothyroidism, unspecified; W18.30XA Fall on same level, unspecified, initial encounter; Y92.9 Unspecified place or not applicable; Z79.82 Long term (current) use of aspirin; Z79.899 Other long term (current) drug therapy; Z96.641 Presence of right artificial hip joint; Z96.642 Presence of left artificial hip joint; E86.0 Dehydration; D69.6 Thrombocytopenia, unspecified; D63.1 Anemia in chronic kidney disease

== ENCOUNTER 2020-03-30 15:10 | Inpatient (IN) | payer MEDICARE, BC, OTHER ==
[~2020-03-30] VITALS: Ht 190.5 cm; Wt 91.5 kg
[~2020-03-30 15:10] MED LIST changes: +MICR1TAB5 PO
[2020-03-30 15:20] VITALS: BP 139/76
[2020-03-30] MEDS ORDERED: BISACODYL 5 MG TAB PO PRN (16:15)
[2020-03-30] MEDS ORDERED: GLUCAGON INJ 1MG VIAL SC PRN (16:15)
[2020-03-30] MEDS ORDERED: GLUCOSE 4GM CHEW TABLET PO PRN (16:15)
[2020-03-30] MEDS ORDERED: DEXTROSE 50% 50 ML SYRINGE IV PRN (16:15)
[2020-03-30] MEDS: PANTOPRAZOLE 40MG TAB (PROTONIX) PO SCH (17:41)
[2020-03-30] MEDS: gemfibroziL 600 MG TAB PO SCH (17:52)
[2020-03-30] MEDS: ACETAMINOPHEN 500 MG TAB PO SCH ×2 (17:53→21:51)
[2020-03-30] MEDS: HumaLOG INSULIN (NovoLOG) PER UNIT SC SCH ×2 (17:53→21:51)
[2020-03-30 20:47] VITALS: BP 138/73
[2020-03-30] MEDS: BICITRA 30ML SOLN UDC PO SCH (21:49)
[2020-03-30] MEDS: TIMOLOL MALEATE 0.5% OPHTH SOLN 5 ML OS SCH (21:49)
[2020-03-30] MEDS: BRIMONIDINE 0.1% OPHTH SOLN 5 ML OS SCH (21:49)
[2020-03-30] MEDS: HEPARIN SOD (PORCINE) 5000UNITS/ML VIAL (J1644 PER 1000UNITS) SC SCH (21:50)
[2020-03-30] MEDS: SENNA 8.6 MG TAB (SENOKOT) PO SCH (21:50)
[2020-03-30] MEDS: DOCUSATE SODIUM 100 MG CAP PO SCH (21:51)
[2020-03-31] MEDS: LEVOTHYROXINE 100MCG TABLET (0.1MG) PO SCH (05:58)
[2020-03-31 06:19] VITALS: BP 142/67
[2020-03-31 06:47] LABS: BASO % 0.1 % (0.0-1.0); EOS % 0.1 % (0.0-3.0); HEMATOCRIT 31.4 % (42.0-52.0); HEMOGLOBIN 10.5 g/dl (13.5-17.5); LYMPH # 0.5 10^3/uL (1.5-5.0); LYMPH % 6.5 % (24.0-44.0); MEAN CORPUSCULAR HEMOGLOBIN 29.4 pg (27.0-33.0); MEAN CORPUSCULAR HGB CONC 33.4 g/dl (32.0-36.5); MONO # 0.4 10^3/uL (0.0-0.8); MONO % 5.5 % (0.0-5.0); NEUTROPHILS # 6.7 10^3/uL (1.5-8.5); NEUTROPHILS % 87.2 % (36.0-66.0); PLATELET COUNT, AUTOMATED 139 10^3/uL (150-450); RED BLOOD COUNT 3.57 10^6/uL (4.30-6.10); WHITE BLOOD COUNT 7.7 10^3/uL (4.0-10.0)
[2020-03-31 07:23] LABS: ALBUMIN 1.9 GM/DL (3.2-5.2); ALT/SGPT 8 U/L (12-78); BILIRUBIN,TOTAL 0.4 MG/DL (0.2-1.0); BLOOD UREA NITROGEN 17 MG/DL (7-18); CALCIUM LEVEL 8.1 MG/DL (8.8-10.2); CARBON DIOXIDE LEVEL 25 MEQ/L (21-32); CHLORIDE LEVEL 106 MEQ/L (98-107); CREATININE FOR GFR 0.82 MG/DL (0.70-1.30); GLOMERULAR FILTRATION RATE > 60.0 (>42); GLUCOSE, FASTING 145 MG/DL (70-100); POTASSIUM SERUM 4.6 MEQ/L (3.5-5.1); SODIUM LEVEL 138 MEQ/L (136-145); TOTAL PROTEIN 5.5 GM/DL (6.4-8.2)
[2020-03-31] MEDS: ACETAMINOPHEN 500 MG TAB PO SCH ×3 (08:27→22:05)
[2020-03-31] MEDS: gemfibroziL 600 MG TAB PO SCH ×2 (08:27→16:59)
[2020-03-31] MEDS: PANTOPRAZOLE 40MG TAB (PROTONIX) PO SCH (08:27)
[2020-03-31] MEDS: BICITRA 30ML SOLN UDC PO SCH ×2 (08:27→22:04)
[2020-03-31] MEDS: ASPIRIN 81 MG ENTERIC TAB PO SCH (08:27)
[2020-03-31] MEDS: DULoxetine 30 MG CAP (CYMBALTA) PO SCH (08:27)
[2020-03-31] MEDS: azaTHIOprine 50 MG TAB (J7500) PO SCH (08:28)
[2020-03-31] MEDS: HumaLOG INSULIN (NovoLOG) PER UNIT SC SCH ×4 (08:28→21:00)
[2020-03-31] MEDS: DOCUSATE SODIUM 100 MG CAP PO SCH ×2 (08:28→21:00)
[2020-03-31] MEDS: TIMOLOL MALEATE 0.5% OPHTH SOLN 5 ML OS SCH ×2 (08:29→22:07)
[2020-03-31] MEDS: HEPARIN SOD (PORCINE) 5000UNITS/ML VIAL (J1644 PER 1000UNITS) SC SCH ×2 (08:29→22:06)
[2020-03-31] MEDS: BRIMONIDINE 0.1% OPHTH SOLN 5 ML OS SCH ×2 (08:29→22:07)
[2020-03-31] MEDS: oxyCODONE 5MG TAB PO PRN ×2 (08:31→15:38)
[2020-03-31] MEDS: ENALAPRIL MALEATE 5 MG TAB PO SCH (09:00)
--- NOTE | 2020-03-31 12:40 | HPEPDOC ---
[facility] Medical History & Physical Date of Admission Mar 31, 2020 Date of Service: Mar 31, 2020 History and Physical CHIEF COMPLAINT: Fall HISTORY OF PRESENT ILLNESS: 74-year-old male with past medical history of diabetes mellitus, polycystic kidney disease status post renal transplant, hypertension and hypothyroidism presents from home after fall. Patient was walking to the bathroom, while leaning forward to sit down he fell, denies loss of consciousness, no other symptoms prior to or after the fall. Imaging in the ED consistent with left hip dislocation, underwent closed reduction in the emergency department. He was found to be hypoglycemic in the emergency department, reports taking glipizide, poor oral intake for the past 1-2 days. He denies any shortness of breath, chest pain, nausea, vomiting, diarrhea or c onstipation.orthopedics for the patient and they advised Abduction pillow while in bed, progressive mobilization with physical therapy with strict dislocation precautions. They advised the patient about natural history of hips, sometimes as hips start to wear, they are easier to dislocate. There is a possibility of re-dislocation. If he re-dislocates, we may need to consider a prosthetic brace until he becomes more stable. The patient is doing clinically better now and a RU screen was done and the patient is being discharged to rehabilitation inpatient. His hypoglycemia has resolved as he has been eating fine and his glipizide will be resumed on discharge. He is clinically stable to go back to aRU now. The patient was on 2 mg every 4 hours when necessary of morphine and we will let the rehabilitation physicians decide about further pain medications. He also be continued on his heparin as well as prednisone for his renal transplant. Nephrology also has cleared him for discharge. ARU screen was done and they accepted the patient and the patient currently is being evaluated and admitted under them. We are following as a medical consult PHYSICAL EXAMINATION: General: The patient is awake, alert, oriented x3 Head and Neck Exam: Extraocular muscles intact. Pupils equally round and reactive to light. Mucous membranes are moist. Neck is supple. There is no jugular venous distention (JVD). Cardiovascular: S1 and S2, regular rate. Trace edema of the bilateral lower extremities. Respiratory: Lungs are clear auscultation bilaterally Abdomen: Soft. Positive bowel sounds. Nontender. No organomegaly. Musculoskeletal: Clubbing of the fingernails, no cyanosis was noted. Central Nervous System (PHYSICIAN OFFICE CLIN ASST): No focal deficit. Power is 5/5 in all e xtremities. Slight difficulty in range of motion of left hip 10 point review of systems negative except for above PAST MEDICAL HISTORY: 1. Diabetes mellitus. 2. Hypertension. 3. Polycystic kidney disease. PAST SURGICAL HISTORY: 1. Renal transplant. 2. Hip replacements. 3. Cholecystectomy. SOCIAL HISTORY: Denies smoking Denies alcohol use. Denies drug use FAMILY HISTORY: Positive for heart disease ALLERGIES: Please see below. HOME MEDICATIONS: Please see below. ASSESSMENT: 74-year-old male with past medical history of polycystic kidney disease, status post transplant, diabetes mellitus and hypertension is being admitted for left hip dislocation to ARU. PLAN: 1. Left hip dislocation. Secondary to fall, reduced in the ER, orthopedic eval pending in the morning, pain control. Orthopedics advised Abduction pillow while in bed, progressive mobilization with physical therapy with strict dislocation precautions. They advised the patient about natural history of hips, sometimes a s hips start to wear, they are easier to dislocate. There is a possibility of re-dislocation. If he re-dislocates, we may need to consider a prosthetic brace until he becomes more stable. 2. Hypoglycemia. Resolved. Cont gluco checks 3. Diabetes mellitus. Sliding scale insulin coverage with meals and at bedtime. 4. Hypertension. Continue enalapril 5. Polycystic kidney disease. Status post renal transplant, continue prednisone and azathioprine. DVT prophylaxis: Heparin subcutaneous GI prophylaxis: Not needed Vital Signs Vital Signs Date Time Temp Pulse Resp B/P (MAP) Pulse Ox O2 Delivery O2 Flow Rate FiO2 03/31/20 09:01 16 03/31/20 06:19 97.0 79 142/67 (92) 97 Room Air Laboratory Data Labs 24H Laboratory Tests 2 03/30/20 20:24: Bedside Glucose (Misc Panel) 259H 03/31/20 06:07: Bedside Glucose (Misc Panel) 142H 03/31/20 06:28: Immature Granulocyte % (Auto) 0.6, Neutrophils (%) (Auto) 87.2H, Lymphocytes (%) (Auto) 6.5L, Monocytes (%) (Auto) 5.5H, Eosinophils (%) (Auto) 0.1, Basophils (%) (Auto) 0.1, Neutrophils # (Auto) 6.7, Lymphocytes # (Auto) 0.5L, Monocytes # (Auto) 0.4, Eosinophils # (Auto) 0.0, Basophils # (Auto) 0.0, Nucleated Red Blood Cells % (auto) 0.0, Anion Gap 7L, Glomerular Filtration Rate > 60.0, Calcium Level 8.1L, Total Bilirubin 0.4, Aspartate Amino Transf (AST/SGOT) 13, Alanine Aminotransferase (ALT/SGPT) 8L, Alkaline Phosphatase 89, Total Protein 5.5L, Albumin 1.9L, Albumin/Globulin Ratio 0.5 03/31/20 11:43: Bedside Glucose (Misc Panel) 170H CBC/BMP Laboratory Tests 03/31/20 06:28 Home Medications Scheduled Aspirin (Aspirin EC) 81 Mg Tab, 81 MG PO DAILY Azathioprine (Imuran) 50 Mg Tab, 150 MG PO DAILY Brimonidine Tartrate/Timolol (Combigan 0.2%-0.5% Eye Drops) 1 Disha Disha, 1 DROP OS BID Colestipol HCl (Micronized Colestipol HCl) 1 Gm Tablet, 2 GM PO BID Duloxetine Hcl (Duloxetine HCl) 60 Mg Cap, 60 MG PO DAILY Enalapril Maleate (Enalapril Maleate) 2.5 Mg Tab, 2.5 MG PO DAILY Gemfibrozil (Gemfibrozil) 600 Mg Tab, 600 MG PO TID Glipizide (Glipizide) 5 Mg Tab, 5 MG PO BID Levothyroxine Sodium (Synthroid) 100 Mcg Tab, 100 MCG PO DAILY Prednisone (Prednisone) 20 Mg Tab, 20 MG PO Q2D Allergies Coded Allergies: No Known Allergies (Unverified , 04/25/18) A-FIB/CHADSVASC A-FIB History Current/History of A-Fib/PAF?: No Current PO Anticoag Therapy: No JUAN RAGLAND MD Mar 31, 2020 12:40
[2020-03-31 14:00] VITALS: BP 125/67
[2020-03-31] MEDS ORDERED: PILL CUTTER 1 EACH XX PRN (14:30)
--- NOTE | 2020-03-31 14:30 | HPEPDOC ---
[employer] Note DATE OF ADMISSION: 03-30-20 DATE OF SERVICE: 03-31-20 TIME OF ADMISSION: Please refer to physician's admission order. SOURCE OF ADMISSION INFORMATION: [facility] record and patient CHIEF COMPLAINT: left hip dislocation HISTORY OF PRESENT ILLNESS: 74 M pmh DM with peripheral polyneuropathy and bilat foot drop, polycystic kidney disease s/p renal transplant, hypothyroidism who fell at home and presented to [facility] ED on 03-26-20 with difficulty walking. Hip Xray showed a left hip prosthetic dislocation which was reduced in the ED. He was evaluated by orthopedics who instructed him to maintain hip dislocation precautions and suggested he may need revision surgery in the future. He also complained of right sided hip pain for which Hip Xrays did not show new fracture or dislocation. He had leukocytosis which resolved and hypoglycemia. In addition he had RANDELL for which his enalapril was held. He was evaluated by therapy and found to be well below his baseline for mobility and ADLs and deemed medically appropriate for discharge to ARU on 03-30-20. REVIEW OF SYSTEMS: The following is a completed review of systems and has been reviewed. Review of systems otherwise unremarkable. PAIN: Patient self reports right groin pain EYES: No recent vision changes EARS, NOSE, & THROAT: No throat pain, or dysphagia, or rhinorrhea CARDIOVASCULAR: Denies chest pain or palpitations PULMONARY: Denies shortness of breath GASTROINTESTINAL: Denies constipation/diarrhea GENITOURINARY: denies dysuria MUSCULOSKELETAL: LE weakness NEUROLOGICAL:no tremor or paresthesias HEMATOLOGICAL: + easy bruising SKIN: scattered ecchymosis PSYCHIATRIC: Unremarkable All other review of systems found to be negative. PAST MEDICAL HISTORY: as per HPI PAST SURGICAL HISTORY: Renal transplant, bilateral hip replacement, cholecystectomy ALLERGIES: Please see below. MEDICATIONS: Please see below. FAMILY HISTORY: Cardiac SOCIAL HISTORY: DIET: No etoh/illicit drugs/smoking PHYSICAL EXAMINATION: VITAL SIGNS: Please see below. GENERAL: Pleasant and cooperative. No acute distress. HEENT: PERRL. Extraocular movements intact. Clear conjunctiva CARDIOVASCULAR: Regular rate and rhythm. No murmurs, rubs, or gallops LUNGS: Clear to auscultation bilaterally. No wheezes. No rhonchi ABDOMEN: Soft, nontender, nondistended. Positive bowel sounds. Normal active bowel sounds NEUROLOGICAL: Alert and oriented times three. Cranial nerves II through XII grossly intact. Sensation diminished to light touch and pinprick bilat LE in stocking pattern EXTREMITIES: 5-\5 strength bilateral upper extremities. 3+\5 strength right hip flxeion and knee extension, 2/5 ankle DF and 0/5 EHL 3+\5 strength left hip flxeion and knee extension, 2/5 ankle DF and 0/5 EHL (exam limited due to pain) +groin pain with internal rotation of right leg SKIN: left heel with blanchable erythema, right midfoot with blanchable erythema LABORATORY DATA: Please see below. IMAGING: Imaging documentation personally reviewed by record FUNCTIONAL STATUS: Premorbid: Mod-Independent with all activities of daily life as well as mobility On Admission: Mod-Max assist for bed mobility, functional transfers, and ambulation GOALS: Mod-I household distances for ambulation with RW, functional transfers, bathing, dressing, toileting ASSESSMENT:74-year-old M with past medical history of bilat THR who presents status post fall with left hip dislocation PLAN: 1.Rehab- PT/OT advance gait and ADLs, maintain posterior hip precautions and use abduction pillow, heel floats 2. Cardiac- hx of HTN c/u Enalapril and ASA -HLD- lopid 3. 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 Resp- encourage incentive spirometry, monitor for infection 4. Ortho s/p left hip dislocation, ortho consulted -right hip pain, will order CT to check for hairline fracture given recent normal Xray 5. Endo- hx of hypothyroidism c/u Synthroid, dm c/u ISS 6. renal- s/p transplant c/u prednisone and imuran- watch for Randell while on ANKITA-I -citric-acid/sodium chloride 7. pain- tylenol and cymbalta 8. gi ppx- protonix 9. dvt ppx- heparin and teds 10. tbd POST ADMISSION PHYSICIAN EVALUATION: Medical and functional status: Description of medical status, medical assessment: As above. Rehabilitation diagnosis and current and prior cold morbid medical conditions as above. Risk of complications and plans to mitigate them as above. Description of functional status current status is as above. Prior status as above. Status compared to preadmission: There are no clinically significant differences between the patient's current status and the information described on the preadmission screening document. Treatment plan anticipated: Treatment plan is as described above. Required disciplines including physical therapy, occupational therapy, others as noted above Intensity of services: 3 hours a day, 6 days a week. Special considerations: There are no specific special or safety considerations that would likely preclude immediate implementation of an intensive rehabilitation program or subsequently influence the plan of care ATTESTATION: Considering all the information above, it is my best judgment that this patient requires intensive rehabilitation therapy as described above and an inpatient hospital environment due to the complexity of nursing, medical, and rehabilitation needs required by the patient. Furthermore, this patient can reasonably be expected to participate in an benefit from an inpatient rehabilitation stay with an interdisciplinary team approach to the delivery of rehabilitation care under the direction and supervision of rehabilitation physician PROGNOSIS: excellent ESTIMATED LENGTH OF STAY:14-18 days. PROJECTED DISCHARGE DESTINATION: Home with family support and any durable medical equipment required to increase functional safety and mobility TIME SPENT COUNSELING AND COORDINATING INITIAL CARE: Greater than 70 minutes. Vital Signs Vital Sign - Last 24 Hours 03/30/20 03/30/20 03/31/20 03/31/20 15:20 20:47 06:19 08:31 Temp 96.8 98.2 97.0 Pulse 81 74 79 Resp 18 18 16 16 B/P (MAP) 139/76 (97) 138/73 (94) 142/67 (92) Pulse Ox 98 99 97 O2 Delivery Room Air Room Air Room Air 03/31/20 09:01 Resp 16 Laboratory Data CBC/BMP Laboratory Tests 03/31/20 06:28 Labs 24H Laboratory Tests 2 03/30/20 20:24: Bedside Glucose (Misc Panel) 259H 03/31/20 06:07: Bedside Glucose (Misc Panel) 142H 03/31/20 06:28: Immature Granulocyte % (Auto) 0.6, Neutrophils (%) (Auto) 87.2H, Lymphocytes (%) (Auto) 6.5L, Monocytes (%) (Auto) 5.5H, Eosinophils (%) (Auto) 0.1, Basophils (%) (Auto) 0.1, Neutrophils # (Auto) 6.7, Lymphocytes # (Auto) 0.5L, Monocytes # (Auto) 0.4, Eosinophils # (Auto) 0.0, Basophils # (Auto) 0.0, Nucleated Red Blood Cells % (auto) 0.0, Anion Gap 7L, Glomerular Filtration Rate > 60.0, Calcium Level 8.1L, Total Bilirubin 0.4, Aspartate Amino Transf (AST/SGOT) 13, Alanine Aminotransferase (ALT/SGPT) 8L, Alkaline Phosphatase 89, Total Protein 5.5L, Albumin 1.9L, Albumin/Globulin Ratio 0.5 03/31/20 11:43: Bedside Glucose (Misc Panel) 170H FSBS Laboratory Tests Test 03/30/20 20:24 03/31/20 06:07 03/31/20 11:43 Range/Units Bedside Glucose (Misc Panel) 259 142 170 83-110 MG/DL Home Medications Scheduled Aspirin (Aspirin EC) 81 Mg Tab, 81 MG PO DAILY, (Reported) Azathioprine (Imuran) 50 Mg Tab, 150 MG PO DAILY, (Reported) Brimonidine Tartrate/Timolol (Combigan 0.2%-0.5% Eye Drops) 1 Disha Disha, 1 DROP OS BID, (Reported) Colestipol HCl (Micronized Colestipol HCl) 1 Gm Tablet, 2 GM PO BID, (Reported) Duloxetine Hcl (Duloxetine HCl) 60 Mg Cap, 60 MG PO DAILY, (Reported) Enalapril Maleate (Enalapril Maleate) 2.5 Mg Tab, 2.5 MG PO DAILY, (Reported) Gemfibrozil (Gemfibrozil) 600 Mg Tab, 600 MG PO TID, (Reported) Glipizide (Glipizide) 5 Mg Tab, 5 MG PO BID, (Reported) Levothyroxine Sodium (Synthroid) 100 Mcg Tab, 100 MCG PO DAILY, (Reported) Prednisone (Prednisone) 20 Mg Tab, 20 MG PO Q2D, (Reported) Allergies Coded Allergies: No Known Allergies (Unverified , 04/25/18) A-FIB/CHADSVASC A-FIB History Current/History of A-Fib/PAF?: No TAQUERIA GIBBS MD Mar 31, 2020 14:30
[2020-03-31] MEDS: LIDOCAINE 5% (LIDODERM) PATCH TD SCH (15:39)
[2020-03-31 20:00] VITALS: BP 137/78
[2020-03-31] MEDS: SENNA 8.6 MG TAB (SENOKOT) PO SCH (21:00)
[2020-03-31] MEDS: **NOTE PATIENT COMMENT** MISC XX SCH (21:00)
[2020-04-01] MEDS: oxyCODONE 5MG TAB PO PRN ×3 (01:20→11:46)
[2020-04-01 06:00] VITALS: BP 131/80
[2020-04-01] MEDS: LEVOTHYROXINE 100MCG TABLET (0.1MG) PO SCH (06:05)
[2020-04-01] MEDS: DOCUSATE SODIUM 100 MG CAP PO SCH ×2 (07:19→20:27)
[2020-04-01] MEDS: HumaLOG INSULIN (NovoLOG) PER UNIT SC SCH ×4 (07:34→20:53)
[2020-04-01] MEDS: PANTOPRAZOLE 40MG TAB (PROTONIX) PO SCH (07:35)
[2020-04-01] MEDS: BICITRA 30ML SOLN UDC PO SCH ×2 (07:35→20:26)
[2020-04-01] MEDS: gemfibroziL 600 MG TAB PO SCH ×2 (07:35→17:13)
[2020-04-01] MEDS: ACETAMINOPHEN 500 MG TAB PO SCH ×3 (07:36→20:27)
[2020-04-01] MEDS: azaTHIOprine 50 MG TAB (J7500) PO SCH (07:36)
[2020-04-01] MEDS: ASPIRIN 81 MG ENTERIC TAB PO SCH (07:36)
[2020-04-01] MEDS: predniSONE 20 MG TAB PO SCH (07:36)
[2020-04-01] MEDS: DULoxetine 30 MG CAP (CYMBALTA) PO SCH (07:36)
[2020-04-01] MEDS: TIMOLOL MALEATE 0.5% OPHTH SOLN 5 ML OS SCH ×2 (07:37→20:26)
[2020-04-01] MEDS: BRIMONIDINE 0.1% OPHTH SOLN 5 ML OS SCH ×2 (07:37→20:26)
[2020-04-01] MEDS: LIDOCAINE 5% (LIDODERM) PATCH TD SCH (07:37)
[2020-04-01] MEDS: HEPARIN SOD (PORCINE) 5000UNITS/ML VIAL (J1644 PER 1000UNITS) SC SCH ×2 (07:37→20:27)
--- NOTE | 2020-04-01 10:23 | REP ---
CT RIGHT HIP WITHOUT CONTRAST: HISTORY: Right hip pain after a fall. Comparison radiographs are from March 25, 2020. The patient is status post prosthetic hip dislocation on the left. TECHNIQUE: Helical scanning is acquired and 3 mm axial images are generated. Coronal and sagittal MPR images are generated and reviewed. CT FINDINGS: There are bilateral hip arthroplasties. A kidney transplant is seen in the right iliac fossa. There is a right bladder diverticulum noted. The urinary bladder is somewhat distended. There is spray artifact from the metallic prosthetic components. No acute fracture or subluxation is seen. There is radiolucency in the superior and posterior acetabulum on the right which may relate to cyst formation or degenerative change related to the prosthesis. There is no abnormal radiolucency in the proximal femur. Study is otherwise unremarkable. IMPRESSION: No acute fracture or subluxation is seen. Status post right hip arthroplasty in good position. There are radiolucent changes superior and posterior in the acetabulum question related to degenerative changes associated with the prosthesis versus cyst formation. Electronically Signed by Saulo Lowry MD 04/01/2020 01:33 P
--- NOTE | 2020-04-01 10:57 | IPNPDOC ---
PM&R Progress Note DATE OF SERVICE: Apr 01, 2020 Sliding Joint Maker Progress Note Subjective: Patient reporting pain and difficulty participating in therapy and would like scheduled oxycodone in the morning and is agreeably yo increasing his home Cymbalta dosing. REVIEW OF SYSTEMS: The following is a completed review of systems and has been reviewed. Review of systems otherwise unremarkable. PAIN: Patient self reports right groin pain EYES: No recent vision changes EARS, NOSE, & THROAT: No throat pain, or dysphagia, or rhinorrhea CARDIOVASCULAR: Denies chest pain or palpitations PULMONARY: Denies shortness of breath GASTROINTESTINAL: Denies constipation/diarrhea GENITOURINARY: denies dysuria MUSCULOSKELETAL: LE weakness NEUROLOGICAL:no tremor or paresthesias HEMATOLOGICAL: + easy bruising SKIN: scattered ecchymosis PSYCHIATRIC: Unremarkable All other review of systems found to be negative. PHYSICAL EXAMINATION: VITAL SIGNS: Please see below. GENERAL: Pleasant and cooperative. No acute distress. HEENT: PERRL. Extraocular movements intact. Clear conjunctiva CARDIOVASCULAR: Regular rate and rhythm. No murmurs, rubs, or gallops LUNGS: Clear to auscultation bilaterally. No wheezes. No rhonchi ABDOMEN: Soft, nontender, nondistended. Positive bowel sounds. Normal active bowel sounds NEUROLOGICAL: Alert and oriented times three. Cranial nerves II through XII grossly intact. Sensation diminished to light touch and pinprick bilat LE in stocking pattern EXTREMITIES: 5-\5 strength bilateral upper extremities. 3+\5 strength right hip flxeion and knee extension, 2/5 ankle DF and 0/5 EHL 3+\5 strength left hip flxeion and knee extension, 2/5 ankle DF and 0/5 EHL (exam limited due to pain) +groin pain with internal rotation of right leg SKIN: left heel with blanchable erythema, right midfoot with blanchable erythema LABORATORY DATA: Please see below. ASSESSMENT:74-year-old M with past medical history of bilat THR who presents status post fall with left hip dislocation PLAN: 1.Rehab- PT/OT advance gait and ADLs, maintain posterior hip precautions and use abduction pillow, heel floats 2. Cardiac- hx of HTN c/u Enalapril and ASA -HLD- lopid 3. 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 Resp- encourage incentive spirometry, monitor for infection 4. Ortho s/p left hip dislocation, ortho consulted -right hip pain, CT negative for fracture 5. Endo- hx of hypothyroidism c/u Synthroid, dm c/u ISS 6. renal- s/p transplant c/u prednisone and imuran- watch for Luther while on ANKITA-I -citric-acid/sodium chloride 7. pain- tylenol and cymbalta (will increase home dose to 90mg daily) , oxycodone prn and 10mg q am in advance of therapy 8. gi ppx- protonix 9. dvt ppx- heparin and teds 10. tbd Allergies Coded Allergies: No Known Allergies (Unverified , 04/25/18) Vital Signs Vital Signs Date Time Temp Pulse Resp B/P (MAP) Pulse Ox O2 Delivery O2 Flow Rate FiO2 04/01/20 08:19 16 04/01/20 06:00 96.3 79 131/80 (97) 99 Room Air Laboratory Data Labs 24H Laboratory Tests 2 03/31/20 11:43: Bedside Glucose (Misc Panel) 170H 03/31/20 16:36: Bedside Glucose (Misc Panel) 191H 03/31/20 20:34: Bedside Glucose (Misc Panel) 185H 04/01/20 06:28: Bedside Glucose (Misc Panel) 146H Current Medications Current Medications Current Medications Medications (Trade) Dose Ordered Sig/Elieser Route PRN Reason Start Time Stop Time Status Last Admin Dose Admin Acetaminophen (Tylenol Tab) 1,000 mg TID PO 03/30/20 16:00 04/01/20 07:36 Aspirin (Ecotrin) 81 mg DAILY PO 03/31/20 09:00 04/01/20 07:36 Azathioprine (Imuran) 150 mg DAILY PO 03/31/20 09:00 04/01/20 07:36 Bisacodyl (Dulcolax Tab) 5 mg DAILYPRN PRN PO CONSTIPATION 03/30/20 16:15 Brimonidine Tartrate (Alphagan P 0.1%) 1 drop BID OS 03/30/20 21:00 04/01/20 07:37 Citric Acid/ Sodium Citrate (Bicitra) 30 ml BID PO 03/30/20 21:00 04/01/20 07:35 Dextrose (Dextrose 50%) 25 ml ASDIRECTED PRN IV SEE LABEL COMMENTS 03/30/20 16:15 Docusate Sodium (Colace) 100 mg BID PO 03/30/20 21:00 03/30/20 21:51 Duloxetine HCl (Cymbalta) 60 mg DAILY PO 03/31/20 09:00 04/01/20 07:36 Enalapril Maleate (Vasotec) 2.5 mg DAILY PO 03/31/20 09:00 Gemfibrozil (Lopid) 600 mg BID@0730,1730 PO 03/30/20 17:30 04/01/20 07:35 Glucagon (Glucagon) 1 mg ASDIRECTED PRN SC SEE LABEL COMMENTS 03/30/20 16:15 Glucose (Glucose) 16 GM ASDIRECTED PRN PO SEE LABEL COMMENTS 03/30/20 16:15 Heparin Sodium (Porcine) (Heparin) 5,000 units Q12H SC 03/30/20 21:00 04/01/20 07:37 Insulin Human Lispro (HumaLOG INSULIN) SEE PROTOCOL TABLE AC SC 03/30/20 17:30 04/01/20 07:34 Insulin Human Lispro (HumaLOG INSULIN) SEE PROTOCOL TABLE QHS SC 03/30/20 21:00 03/30/20 21:51 Levothyroxine Sodium (Synthroid) 100 mcg DAILY@06 PO 03/31/20 06:00 04/01/20 06:05 Lidocaine (Lidoderm Patch) 1 patch DAILY TD 03/31/20 09:00 04/01/20 07:37 Non-Formulary Medication ( See Comment Field Below ) REMOVE LIDODERM PATCH DAILY@21 XX 03/31/20 21:00 03/31/20 21:00 Oxycodone HCl (Roxicodone, Oxyir) 5 mg Q4HP PRN PO PAIN 03/30/20 16:15 04/01/20 07:49 Pantoprazole Sodium (Protonix) 40 mg DAILY PO 03/30/20 09:00 04/01/20 07:35 Prednisone (Deltasone) 20 mg Q48H PO 04/01/20 09:00 04/01/20 07:36 Senna (Senokot) 1 tab QHS PO 03/30/20 21:00 03/30/20 21:50 Timolol Maleate (Timoptic 0.5% Ophth Disha) 1 drop BID OS 03/30/20 21:00 04/01/20 07:37 TAQUERIA GIBBS MD Apr 01, 2020 10:57
[2020-04-01] MEDS ORDERED: DULoxetine 30 MG CAP (CYMBALTA) PO ONE (12:00)
[2020-04-01] MEDS: ENALAPRIL MALEATE 5 MG TAB PO SCH (13:30)
[2020-04-01 14:00] VITALS: BP 127/70
[2020-04-01 20:00] VITALS: BP 127/71
[2020-04-01] MEDS: SENNA 8.6 MG TAB (SENOKOT) PO SCH (20:27)
[2020-04-01] MEDS: **NOTE PATIENT COMMENT** MISC XX SCH (20:27)
[2020-04-02 06:00] VITALS: BP 131/76
[2020-04-02] MEDS: LEVOTHYROXINE 100MCG TABLET (0.1MG) PO SCH (06:06)
[2020-04-02] MEDS: HumaLOG INSULIN (NovoLOG) PER UNIT SC SCH ×4 (07:26→21:00)
[2020-04-02] MEDS: DOCUSATE SODIUM 100 MG CAP PO SCH ×2 (07:26→21:00)
[2020-04-02] MEDS: BICITRA 30ML SOLN UDC PO SCH ×2 (07:26→21:13)
[2020-04-02] MEDS: gemfibroziL 600 MG TAB PO SCH ×2 (07:26→17:15)
[2020-04-02] MEDS: azaTHIOprine 50 MG TAB (J7500) PO SCH (07:27)
[2020-04-02] MEDS: DULoxetine 30 MG CAP (CYMBALTA) PO SCH (07:27)
[2020-04-02] MEDS: BRIMONIDINE 0.1% OPHTH SOLN 5 ML OS SCH ×2 (07:28→21:13)
[2020-04-02] MEDS: ACETAMINOPHEN 500 MG TAB PO SCH ×3 (07:28→21:13)
[2020-04-02] MEDS: TIMOLOL MALEATE 0.5% OPHTH SOLN 5 ML OS SCH ×2 (07:28→21:14)
[2020-04-02] MEDS: ASPIRIN 81 MG ENTERIC TAB PO SCH (07:28)
[2020-04-02] MEDS: PANTOPRAZOLE 40MG TAB (PROTONIX) PO SCH (07:28)
[2020-04-02] MEDS: HEPARIN SOD (PORCINE) 5000UNITS/ML VIAL (J1644 PER 1000UNITS) SC SCH ×2 (07:28→21:13)
[2020-04-02] MEDS: LIDOCAINE 5% (LIDODERM) PATCH TD SCH (07:29)
[2020-04-02] MEDS: oxyCODONE 5MG TAB PO SCH (07:30)
[2020-04-02 08:27] LABS: BASO % 0.2 % (0.0-1.0); EOS % 0.2 % (0.0-3.0); HEMATOCRIT 28.3 % (42.0-52.0); HEMOGLOBIN 9.3 g/dl (13.5-17.5); LYMPH # 0.6 10^3/uL (1.5-5.0); LYMPH % 9.5 % (24.0-44.0); MEAN CORPUSCULAR HGB CONC 32.9 g/dl (32.0-36.5); MEAN CORPUSCULAR VOLUME 88.2 fl (80.0-96.0); MONO # 0.4 10^3/uL (0.0-0.8); MONO % 6.5 % (0.0-5.0); NEUTROPHILS # 5.2 10^3/uL (1.5-8.5); NEUTROPHILS % 82.7 % (36.0-66.0); PLATELET COUNT, AUTOMATED 213 10^3/uL (150-450); RED BLOOD COUNT 3.21 10^6/uL (4.30-6.10); WHITE BLOOD COUNT 6.3 10^3/uL (4.0-10.0)
[2020-04-02 08:43] LABS: BLOOD UREA NITROGEN 20 MG/DL (7-18); CALCIUM LEVEL 8.3 MG/DL (8.8-10.2); CARBON DIOXIDE LEVEL 24 MEQ/L (21-32); CHLORIDE LEVEL 102 MEQ/L (98-107); GLOMERULAR FILTRATION RATE > 60.0 (>42); GLUCOSE, FASTING 194 MG/DL (70-100); POTASSIUM SERUM 3.9 MEQ/L (3.5-5.1); SODIUM LEVEL 135 MEQ/L (136-145)
[2020-04-02] MEDS: ENALAPRIL MALEATE 5 MG TAB PO SCH (12:43)
[2020-04-02 14:00] VITALS: BP 122/61
[2020-04-02] MEDS: oxyCODONE 5MG TAB PO PRN ×2 (15:47→21:26)
[2020-04-02 20:00] VITALS: BP 117/59
[2020-04-02] MEDS: SENNA 8.6 MG TAB (SENOKOT) PO SCH (21:00)
[2020-04-02] MEDS: **NOTE PATIENT COMMENT** MISC XX SCH (21:14)
[2020-04-03] MEDS: oxyCODONE 5MG TAB PO PRN ×2 (01:40→12:32)
[2020-04-03] MEDS: LEVOTHYROXINE 100MCG TABLET (0.1MG) PO SCH (05:29)
[2020-04-03 06:00] VITALS: BP 129/69
[2020-04-03] MEDS: BICITRA 30ML SOLN UDC PO SCH ×2 (08:17→20:44)
[2020-04-03] MEDS: HumaLOG INSULIN (NovoLOG) PER UNIT SC SCH ×4 (08:17→20:45)
[2020-04-03] MEDS: oxyCODONE 5MG TAB PO SCH (08:18)
[2020-04-03] MEDS: DOCUSATE SODIUM 100 MG CAP PO SCH ×2 (08:18→20:46)
[2020-04-03] MEDS: PANTOPRAZOLE 40MG TAB (PROTONIX) PO SCH (08:18)
[2020-04-03] MEDS: ASPIRIN 81 MG ENTERIC TAB PO SCH (08:18)
[2020-04-03] MEDS: gemfibroziL 600 MG TAB PO SCH ×2 (08:18→17:26)
[2020-04-03] MEDS: predniSONE 20 MG TAB PO SCH (08:19)
[2020-04-03] MEDS: ACETAMINOPHEN 500 MG TAB PO SCH ×3 (08:19→20:44)
[2020-04-03] MEDS: DULoxetine 30 MG CAP (CYMBALTA) PO SCH (08:19)
[2020-04-03] MEDS: ENALAPRIL MALEATE 5 MG TAB PO SCH (08:19)
[2020-04-03] MEDS: TIMOLOL MALEATE 0.5% OPHTH SOLN 5 ML OS SCH ×2 (08:20→20:45)
[2020-04-03] MEDS: BRIMONIDINE 0.1% OPHTH SOLN 5 ML OS SCH ×2 (08:20→20:45)
[2020-04-03] MEDS: HEPARIN SOD (PORCINE) 5000UNITS/ML VIAL (J1644 PER 1000UNITS) SC SCH ×2 (08:20→20:44)
[2020-04-03] MEDS: azaTHIOprine 50 MG TAB (J7500) PO SCH (08:20)
[2020-04-03] MEDS: LIDOCAINE 5% (LIDODERM) PATCH TD SCH (08:21)
[2020-04-03 14:00] VITALS: BP 101/58
[2020-04-03 20:00] VITALS: BP 113/63
[2020-04-03] MEDS: **NOTE PATIENT COMMENT** MISC XX SCH (20:46)
[2020-04-03] MEDS: SENNA 8.6 MG TAB (SENOKOT) PO SCH (20:46)
[2020-04-04] MEDS: LEVOTHYROXINE 100MCG TABLET (0.1MG) PO SCH (05:38)
[2020-04-04 06:00] VITALS: BP 142/74
[2020-04-04] MEDS: DOCUSATE SODIUM 100 MG CAP PO SCH ×2 (09:00→21:00)
[2020-04-04] MEDS: HumaLOG INSULIN (NovoLOG) PER UNIT SC SCH ×4 (09:28→21:00)
[2020-04-04] MEDS: BICITRA 30ML SOLN UDC PO SCH ×2 (09:28→21:02)
[2020-04-04] MEDS: DULoxetine 30 MG CAP (CYMBALTA) PO SCH (09:28)
[2020-04-04] MEDS: HEPARIN SOD (PORCINE) 5000UNITS/ML VIAL (J1644 PER 1000UNITS) SC SCH ×2 (09:28→21:03)
[2020-04-04] MEDS: ASPIRIN 81 MG ENTERIC TAB PO SCH (09:29)
[2020-04-04] MEDS: ACETAMINOPHEN 500 MG TAB PO SCH ×3 (09:29→21:02)
[2020-04-04] MEDS: oxyCODONE 5MG TAB PO SCH (09:29)
[2020-04-04] MEDS: PANTOPRAZOLE 40MG TAB (PROTONIX) PO SCH (09:29)
[2020-04-04] MEDS: azaTHIOprine 50 MG TAB (J7500) PO SCH (09:30)
[2020-04-04] MEDS: ENALAPRIL MALEATE 5 MG TAB PO SCH (09:30)
[2020-04-04] MEDS: TIMOLOL MALEATE 0.5% OPHTH SOLN 5 ML OS SCH ×2 (09:32→21:03)
[2020-04-04] MEDS: BRIMONIDINE 0.1% OPHTH SOLN 5 ML OS SCH ×2 (09:32→21:03)
[2020-04-04] MEDS: LIDOCAINE 5% (LIDODERM) PATCH TD SCH (09:32)
[2020-04-04] MEDS: gemfibroziL 600 MG TAB PO SCH ×2 (09:32→17:30)
[2020-04-04 14:00] VITALS: BP 115/65
[2020-04-04 20:00] VITALS: BP 103/66
[2020-04-04] MEDS: SENNA 8.6 MG TAB (SENOKOT) PO SCH (21:00)
[2020-04-04] MEDS: **NOTE PATIENT COMMENT** MISC XX SCH (21:04)
[2020-04-04] MEDS ORDERED: RAMELTEON 8 MG TAB (ROZEREM) PO PRN (21:45)
[2020-04-05 05:11] VITALS: BP 123/62
[2020-04-05] MEDS: LEVOTHYROXINE 100MCG TABLET (0.1MG) PO SCH (05:52)
[2020-04-05] MEDS: BICITRA 30ML SOLN UDC PO SCH ×2 (07:51→21:18)
[2020-04-05] MEDS: LIDOCAINE 5% (LIDODERM) PATCH TD SCH (07:52)
[2020-04-05] MEDS: HumaLOG INSULIN (NovoLOG) PER UNIT SC SCH ×4 (07:52→21:00)
[2020-04-05] MEDS: HEPARIN SOD (PORCINE) 5000UNITS/ML VIAL (J1644 PER 1000UNITS) SC SCH ×2 (07:52→21:20)
[2020-04-05] MEDS: ACETAMINOPHEN 500 MG TAB PO SCH ×3 (07:53→21:18)
[2020-04-05] MEDS: gemfibroziL 600 MG TAB PO SCH ×2 (07:53→17:06)
[2020-04-05] MEDS: azaTHIOprine 50 MG TAB (J7500) PO SCH (07:53)
[2020-04-05] MEDS: predniSONE 20 MG TAB PO SCH (07:53)
[2020-04-05] MEDS: PANTOPRAZOLE 40MG TAB (PROTONIX) PO SCH (07:53)
[2020-04-05] MEDS: ASPIRIN 81 MG ENTERIC TAB PO SCH (07:53)
[2020-04-05] MEDS: DULoxetine 30 MG CAP (CYMBALTA) PO SCH (07:54)
[2020-04-05] MEDS: ENALAPRIL MALEATE 5 MG TAB PO SCH (07:54)
[2020-04-05] MEDS: oxyCODONE 5MG TAB PO SCH (07:55)
[2020-04-05] MEDS: TIMOLOL MALEATE 0.5% OPHTH SOLN 5 ML OS SCH ×2 (08:01→21:21)
[2020-04-05] MEDS: BRIMONIDINE 0.1% OPHTH SOLN 5 ML OS SCH ×2 (08:01→21:21)
[2020-04-05] MEDS: DOCUSATE SODIUM 100 MG CAP PO SCH ×2 (08:02→20:25)
[2020-04-05 11:27] LABS: BASO % 0.1 % (0.0-1.0); HEMATOCRIT 30.9 % (42.0-52.0); HEMOGLOBIN 10.1 g/dl (13.5-17.5); LYMPH # 0.6 10^3/uL (1.5-5.0); LYMPH % 6.2 % (24.0-44.0); MEAN CORPUSCULAR HGB CONC 32.7 g/dl (32.0-36.5); MEAN CORPUSCULAR VOLUME 88.8 fl (80.0-96.0); MONO # 0.4 10^3/uL (0.0-0.8); MONO % 4.1 % (0.0-5.0); NEUTROPHILS # 9.2 10^3/uL (1.5-8.5); NEUTROPHILS % 88.7 % (36.0-66.0); PLATELET COUNT, AUTOMATED 310 10^3/uL (150-450); RED BLOOD COUNT 3.48 10^6/uL (4.30-6.10); WHITE BLOOD COUNT 10.4 10^3/uL (4.0-10.0)
[2020-04-05 11:47] LABS: BLOOD UREA NITROGEN 16 MG/DL (7-18); CALCIUM LEVEL 8.2 MG/DL (8.8-10.2); CARBON DIOXIDE LEVEL 25 MEQ/L (21-32); CHLORIDE LEVEL 98 MEQ/L (98-107); CREATININE FOR GFR 0.92 MG/DL (0.70-1.30); GLOMERULAR FILTRATION RATE > 60.0 (>42); GLUCOSE, FASTING 206 MG/DL (70-100); SODIUM LEVEL 130 MEQ/L (136-145)
[2020-04-05 14:00] VITALS: BP 116/61
--- NOTE | 2020-04-05 16:12 | IPNPDOC ---
Date Seen The patient was seen on 04/05/20. Progress Note SUBJECTIVE: Patient comfortable in bed. Denies any current pain but states that R. hip pain is severe with ambulation. No other complaints reported. OBJECTIVE PHYSICAL EXAMINATION: VITAL SIGNS: Please see below. General: No acute distress, Alert Eyes: Normal sclera, EOMI HENT: Atraumatic Cardiovascular: Normal rate Pulmonary: Clear to auscultation b/l, no wheezing GI: Soft, nontender, nondistended Skin: Warm and dry Neuro: CN grossly intact. No focal deficits. Psych: oriented x 3 LABORATORY DATA, IMAGING STUDIES, MICROBIOLOGY: Please see below. DVT prophylaxis ordered?: HSQ ASSESSMENT AND PLAN: 74 year old male with PMH polycystic kidney disease s/p renal transplant, DM, Hypothyroidism and HTN presented to [facility] after a fall at home resulting in a L. hip dislocation. He underwent a reduction in the ED and was evaluated by orthopedic team. He has been receiving rehab in ARU while being managed for pain. Has been on oxycodone standing as well as PRN. Complains of severe pain with ambulation/physical therapy. 1. L. hip dislocation post fall - c/w PT and pain management. Had been seen by ortho. - There is a risk for a recurrence of dislocation, in that case, may need a prosthetic brace placement. - On tylenol, cymbalta and oxycodone. Cymbalta had been increased from home dose. 2. HTN - BP controlled on Enalapril. 3. DM - ISS with ACHS. 4. Polycystic kidney disease - s/p renal transplant on chronic prednisone and azathioprine. 5. Hypothyroidism - c/w synthroid 100 mcg daily home dose. VS, I&O, 24H, Fishbone Vital Signs/I&O Vital Signs Date Time Temp Pulse Resp B/P (MAP) Pulse Ox O2 Delivery O2 Flow Rate FiO2 04/05/20 14:00 97.7 74 18 116/61 (79) 97 Room Air I&O- Last 24 Hours up to 6 AM 04/05/20 05:59 Intake Total 1680 ml Output Total 3025 ml Balance -1345 ml Laboratory Data 24H LABS Laboratory Tests 2 04/04/20 16:29: Bedside Glucose (Misc Panel) 164H 04/04/20 20:35: Bedside Glucose (Misc Panel) 140H 04/05/20 06:48: Bedside Glucose (Misc Panel) 149H 04/05/20 11:12: Immature Granulocyte % (Auto) 0.9, Neutrophils (%) (Auto) 88.7H, Lymphocytes (%) (Auto) 6.2L, Monocytes (%) (Auto) 4.1, Eosinophils (%) (Auto) 0.0, Basophils (%) (Auto) 0.1, Neutrophils # (Auto) 9.2H, Lymphocytes # (Auto) 0.6L, Monocytes # (Auto) 0.4, Eosinophils # (Auto) 0.0, Basophils # (Auto) 0.0, Nucleated Red Blood Cells % (auto) 0.0, Anion Gap 7L, Glomerular Filtration Rate > 60.0, Calcium Level 8.2L 04/05/20 11:14: Bedside Glucose (Misc Panel) 220H CBC/BMP Laboratory Tests 04/05/20 11:12 CARMEN KAUFMAN MD Apr 05, 2020 16:12
[2020-04-05 20:00] VITALS: BP 126/73
[2020-04-05] MEDS: SENNA 8.6 MG TAB (SENOKOT) PO SCH (20:25)
[2020-04-05] MEDS: **NOTE PATIENT COMMENT** MISC XX SCH (21:22)
[2020-04-06 06:03] VITALS: BP 128/78
[2020-04-06] MEDS: LEVOTHYROXINE 100MCG TABLET (0.1MG) PO SCH (06:13)
[2020-04-06] MEDS: DOCUSATE SODIUM 100 MG CAP PO SCH ×2 (07:21→20:32)
[2020-04-06] MEDS: LIDOCAINE 5% (LIDODERM) PATCH TD SCH (07:40)
[2020-04-06] MEDS: BICITRA 30ML SOLN UDC PO SCH ×2 (07:40→20:30)
[2020-04-06] MEDS: ASPIRIN 81 MG ENTERIC TAB PO SCH (07:40)
[2020-04-06] MEDS: azaTHIOprine 50 MG TAB (J7500) PO SCH (07:41)
[2020-04-06] MEDS: DULoxetine 30 MG CAP (CYMBALTA) PO SCH (07:41)
[2020-04-06] MEDS: PANTOPRAZOLE 40MG TAB (PROTONIX) PO SCH (07:41)
[2020-04-06] MEDS: HEPARIN SOD (PORCINE) 5000UNITS/ML VIAL (J1644 PER 1000UNITS) SC SCH ×2 (07:41→20:31)
[2020-04-06] MEDS: ENALAPRIL MALEATE 5 MG TAB PO SCH (07:41)
[2020-04-06] MEDS: gemfibroziL 600 MG TAB PO SCH ×2 (07:42→17:25)
[2020-04-06] MEDS: oxyCODONE 5MG TAB PO SCH (07:42)
[2020-04-06] MEDS: ACETAMINOPHEN 500 MG TAB PO SCH ×3 (07:42→20:31)
[2020-04-06] MEDS: HumaLOG INSULIN (NovoLOG) PER UNIT SC SCH ×4 (07:43→20:31)
[2020-04-06] MEDS: BRIMONIDINE 0.1% OPHTH SOLN 5 ML OS SCH ×2 (07:46→20:31)
[2020-04-06] MEDS: TIMOLOL MALEATE 0.5% OPHTH SOLN 5 ML OS SCH ×2 (07:46→20:31)
[2020-04-06] MEDS: oxyCODONE 5MG TAB PO PRN (13:43)
[2020-04-06 14:00] VITALS: BP 163/74
[2020-04-06 15:28] VITALS: BP 128/70
[2020-04-06] MEDS: **NOTE PATIENT COMMENT** MISC XX SCH (20:32)
[2020-04-06] MEDS: SENNA 8.6 MG TAB (SENOKOT) PO SCH (20:32)
[2020-04-06 20:34] VITALS: BP 90/50
[2020-04-06 20:35] VITALS: BP 80/40
[2020-04-06] MEDS ORDERED: NS 1,000 ML IV ONE (22:30)
[2020-04-07 00:18] VITALS: BP 126/78
[2020-04-07] MEDS: LEVOTHYROXINE 100MCG TABLET (0.1MG) PO SCH (05:33)
[2020-04-07 05:57] VITALS: BP 137/60
[2020-04-07 06:53] LABS: BASO % 0.1 % (0.0-1.0); EOS % 0.2 % (0.0-3.0); HEMATOCRIT 28.1 % (42.0-52.0); HEMOGLOBIN 9.4 g/dl (13.5-17.5); LYMPH # 0.9 10^3/uL (1.5-5.0); LYMPH % 10.5 % (24.0-44.0); MEAN CORPUSCULAR HEMOGLOBIN 29.7 pg (27.0-33.0); MEAN CORPUSCULAR HGB CONC 33.5 g/dl (32.0-36.5); MEAN CORPUSCULAR VOLUME 88.6 fl (80.0-96.0); MONO # 0.6 10^3/uL (0.0-0.8); MONO % 6.9 % (0.0-5.0); NEUTROPHILS # 6.8 10^3/uL (1.5-8.5); NEUTROPHILS % 81.2 % (36.0-66.0); PLATELET COUNT, AUTOMATED 240 10^3/uL (150-450); RED BLOOD COUNT 3.17 10^6/uL (4.30-6.10); WHITE BLOOD COUNT 8.4 10^3/uL (4.0-10.0)
[2020-04-07 07:20] LABS: BLOOD UREA NITROGEN 21 MG/DL (7-18); CARBON DIOXIDE LEVEL 28 MEQ/L (21-32); CHLORIDE LEVEL 100 MEQ/L (98-107); CREATININE FOR GFR 1.03 MG/DL (0.70-1.30); GLOMERULAR FILTRATION RATE > 60.0 (>42); GLUCOSE, FASTING 145 MG/DL (70-100); POTASSIUM SERUM 4.4 MEQ/L (3.5-5.1); SODIUM LEVEL 134 MEQ/L (136-145)
[2020-04-07] MEDS: BICITRA 30ML SOLN UDC PO SCH ×2 (08:35→20:35)
[2020-04-07] MEDS: predniSONE 20 MG TAB PO SCH (08:35)
[2020-04-07] MEDS: PANTOPRAZOLE 40MG TAB (PROTONIX) PO SCH (08:36)
[2020-04-07] MEDS: ASPIRIN 81 MG ENTERIC TAB PO SCH (08:36)
[2020-04-07] MEDS: DOCUSATE SODIUM 100 MG CAP PO SCH ×2 (08:36→20:36)
[2020-04-07] MEDS: DULoxetine 30 MG CAP (CYMBALTA) PO SCH (08:36)
[2020-04-07] MEDS: ENALAPRIL MALEATE 5 MG TAB PO SCH (08:38)
[2020-04-07] MEDS: gemfibroziL 600 MG TAB PO SCH ×2 (08:39→18:09)
[2020-04-07] MEDS: oxyCODONE 5MG TAB PO SCH (08:40)
[2020-04-07] MEDS: azaTHIOprine 50 MG TAB (J7500) PO SCH (08:41)
[2020-04-07] MEDS: HEPARIN SOD (PORCINE) 5000UNITS/ML VIAL (J1644 PER 1000UNITS) SC SCH ×2 (08:41→20:35)
[2020-04-07] MEDS: HumaLOG INSULIN (NovoLOG) PER UNIT SC SCH ×4 (08:42→20:36)
[2020-04-07] MEDS: LIDOCAINE 5% (LIDODERM) PATCH TD SCH (08:43)
[2020-04-07] MEDS: ACETAMINOPHEN 500 MG TAB PO SCH ×3 (08:43→20:35)
[2020-04-07] MEDS: TIMOLOL MALEATE 0.5% OPHTH SOLN 5 ML OS SCH ×2 (08:44→20:36)
[2020-04-07] MEDS: BRIMONIDINE 0.1% OPHTH SOLN 5 ML OS SCH ×2 (08:44→20:36)
--- NOTE | 2020-04-07 11:33 | IPNPDOC ---
PM&R Progress Note DATE OF SERVICE: Apr 05, 2020 Counter Weigher Progress Note Subjective: Patient reporting his pain is better controlled and he feels more comfortable in therapy. REVIEW OF SYSTEMS: The following is a completed review of systems and has been reviewed. Review of systems otherwise unremarkable. PAIN: Patient self reports right groin pain EYES: No recent vision changes EARS, NOSE, & THROAT: No throat pain, or dysphagia, or rhinorrhea CARDIOVASCULAR: Denies chest pain or palpitations PULMONARY: Denies shortness of breath GASTROINTESTINAL: Denies constipation/diarrhea GENITOURINARY: denies dysuria MUSCULOSKELETAL: LE weakness NEUROLOGICAL:no tremor or paresthesias HEMATOLOGICAL: + easy bruising SKIN: scattered ecchymosis PSYCHIATRIC: Unremarkable All other review of systems found to be negative. PHYSICAL EXAMINATION: VITAL SIGNS: Please see below. GENERAL: Pleasant and cooperative. No acute distress. HEENT: PERRL. Extraocular movements intact. Clear conjunctiva CARDIOVASCULAR: Regular rate and rhythm. No murmurs, rubs, or gallops LUNGS: Clear to auscultation bilaterally. No wheezes. No rhonchi ABDOMEN: Soft, nontender, nondistended. Positive bowel sounds. Normal active bowel sounds NEUROLOGICAL: Alert and oriented times three. Cranial nerves II through XII grossly intact. Sensation diminished to light touch and pinprick bilat LE in stocking pattern EXTREMITIES: 5-\5 strength bilateral upper extremities. 3+\5 strength right hip flxeion and knee extension, 2/5 ankle DF and 0/5 EHL 3+\5 strength left hip flxeion and knee extension, 2/5 ankle DF and 0/5 EHL (exam limited due to pain) +groin pain with internal rotation of right leg SKIN: left heel with blanchable erythema, right midfoot with blanchable erythema LABORATORY DATA: Please see below. ASSESSMENT:74-year-old M with past medical history of bilat THR who presents status post fall with left hip dislocation PLAN: 1.Rehab- PT/OT advance gait and ADLs, maintain posterior hip precautions and use abduction pillow, heel floats 2. Cardiac- hx of HTN c/u Enalapril and ASA -HLD- lopid 3. 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 Resp- encourage incentive spirometry, monitor for infection 4. Ortho s/p left hip dislocation, ortho consulted -right hip pain, CT negative for fracture-improving with oral pain meds 5. Endo- hx of hypothyroidism c/u Synthroid, dm c/u ISS 6. renal- s/p transplant c/u prednisone and imuran- watch for Luther while on ANKITA-I- stable -citric-acid/sodium chloride 7. pain- tylenol and cymbalta (will increase home dose to 90mg daily) , oxycodone prn and 10mg q am in advance of therapy 8. gi ppx- protonix 9. dvt ppx- heparin and teds 10. Hyponatremia- Na of 130, will start fluid restriction and monitor 11.tbd Allergies Coded Allergies: No Known Allergies (Unverified , 04/25/18) Vital Signs Vital Signs Date Time Temp Pulse Resp B/P (MAP) Pulse Ox O2 Delivery O2 Flow Rate FiO2 04/07/20 08:40 17 Room Air 04/07/20 08:38 137/60 04/07/20 05:57 97.9 81 99 Laboratory Data CBC/BMP Laboratory Tests 04/07/20 06:31 Labs 24H Laboratory Tests 2 04/06/20 12:14: Bedside Glucose (Misc Panel) 192H 04/06/20 16:36: Bedside Glucose (Misc Panel) 128H 04/06/20 19:50: Bedside Glucose (Misc Panel) 125H 04/07/20 06:31: Immature Granulocyte % (Auto) 1.1, Neutrophils (%) (Auto) 81.2H, Lymphocytes (%) (Auto) 10.5L, Monocytes (%) (Auto) 6.9H, Eosinophils (%) (Auto) 0.2, Basophils (%) (Auto) 0.1, Neutrophils # (Auto) 6.8, Lymphocytes # (Auto) 0.9L, Monocytes # (Auto) 0.6, Eosinophils # (Auto) 0.0, Basophils # (Auto) 0.0, Nucleated Red Blood Cells % (auto) 0.0, Anion Gap 6L, Glomerular Filtration Rate > 60.0, Calcium Level 8.0L Current Medications Current Medications Current Medications Medications (Trade) Dose Ordered Sig/Elieser Route PRN Reason Start Time Stop Time Status Last Admin Dose Admin Acetaminophen (Tylenol Tab) 1,000 mg TID PO 03/30/20 16:00 04/07/20 08:43 Aspirin (Ecotrin) 81 mg DAILY PO 03/31/20 09:00 04/07/20 08:36 Azathioprine (Imuran) 150 mg DAILY PO 03/31/20 09:00 04/07/20 08:41 Bisacodyl (Dulcolax Tab) 5 mg DAILYPRN PRN PO CONSTIPATION 03/30/20 16:15 Brimonidine Tartrate (Alphagan P 0.1%) 1 drop BID OS 03/30/20 21:00 04/07/20 08:44 Citric Acid/ Sodium Citrate (Bicitra) 30 ml BID PO 03/30/20 21:00 04/07/20 08:35 Dextrose (Dextrose 50%) 25 ml ASDIRECTED PRN IV SEE LABEL COMMENTS 03/30/20 16:15 Docusate Sodium (Colace) 100 mg BID PO 03/30/20 21:00 04/03/20 08:18 Duloxetine HCl (Cymbalta) 60 mg DAILY PO 03/31/20 09:00 04/01/20 11:23 DC 04/01/20 07:36 Duloxetine HCl (Cymbalta) 90 mg DAILY PO 04/02/20 09:00 04/07/20 08:36 Enalapril Maleate (Vasotec) 2.5 mg DAILY PO 03/31/20 09:00 04/07/20 08:38 Gemfibrozil (Lopid) 600 mg BID@0730,1730 PO 03/30/20 17:30 04/07/20 08:39 Glucagon (Glucagon) 1 mg ASDIRECTED PRN SC SEE LABEL COMMENTS 03/30/20 16:15 Glucose (Glucose) 16 GM ASDIRECTED PRN PO SEE LABEL COMMENTS 03/30/20 16:15 Heparin Sodium (Porcine) (Heparin) 5,000 units Q12H SC 03/30/20 21:00 04/07/20 08:41 Insulin Human Lispro (HumaLOG INSULIN) SEE PROTOCOL TABLE AC SC 03/30/20 17:30 04/07/20 08:42 Insulin Human Lispro (HumaLOG INSULIN) SEE PROTOCOL TABLE QHS SC 03/30/20 21:00 04/03/20 20:45 Levothyroxine Sodium (Synthroid) 100 mcg DAILY@06 PO 03/31/20 06:00 04/07/20 05:33 Lidocaine (Lidoderm Patch) 1 patch DAILY TD 03/31/20 09:00 04/07/20 08:43 Non-Formulary Medication ( See Comment Field Below ) REMOVE LIDODERM PATCH DAILY@21 XX 03/31/20 21:00 04/06/20 20:32 Oxycodone HCl (Roxicodone, Oxyir) 5 mg Q4HP PRN PO PAIN 03/30/20 16:15 04/06/20 13:43 Oxycodone HCl (Roxicodone, Oxyir) 10 mg DAILY PO 04/02/20 09:00 04/07/20 08:40 Pantoprazole Sodium (Protonix) 40 mg DAILY PO 03/30/20 09:00 04/07/20 08:36 Prednisone (Deltasone) 20 mg Q48H PO 04/01/20 09:00 04/07/20 08:35 Ramelteon (Rozerem) 8 mg QHS PRN PO INSOMNIA 04/04/20 21:45 04/04/20 22:28 Senna (Senokot) 1 tab QHS PO 03/30/20 21:00 03/30/20 21:50 Timolol Maleate (Timoptic 0.5% Ophth Disha) 1 drop BID OS 03/30/20 21:00 04/07/20 08:44 TAQUERIA GIBBS MD Apr 07, 2020 11:33
--- NOTE | 2020-04-07 11:37 | IPNPDOC ---
PM&R Progress Note DATE OF SERVICE: Apr 06, 2020 Assembler Crimper Progress Note Subjective: Patient reporting he is concerned he is needing to be catheterized and cannot fully empty his bladder. REVIEW OF SYSTEMS: The following is a completed review of systems and has been reviewed. Review of systems otherwise unremarkable. PAIN: Patient self reports right groin pain EYES: No recent vision changes EARS, NOSE, & THROAT: No throat pain, or dysphagia, or rhinorrhea CARDIOVASCULAR: Denies chest pain or palpitations PULMONARY: Denies shortness of breath GASTROINTESTINAL: Denies constipation/diarrhea GENITOURINARY: denies dysuria, +retention MUSCULOSKELETAL: LE weakness NEUROLOGICAL:no tremor or paresthesias HEMATOLOGICAL: + easy bruising SKIN: scattered ecchymosis PSYCHIATRIC: Unremarkable All other review of systems found to be negative. PHYSICAL EXAMINATION: VITAL SIGNS: Please see below. GENERAL: Pleasant and cooperative. No acute distress. HEENT: PERRL. Extraocular movements intact. Clear conjunctiva CARDIOVASCULAR: Regular rate and rhythm. No murmurs, rubs, or gallops LUNGS: Clear to auscultation bilaterally. No wheezes. No rhonchi ABDOMEN: Soft, nontender, nondistended. Positive bowel sounds. Normal active b owel sounds NEUROLOGICAL: Alert and oriented times three. Cranial nerves II through XII grossly intact. Sensation diminished to light touch and pinprick bilat LE in stocking pattern EXTREMITIES: 5-\5 strength bilateral upper extremities. 3+\5 strength right hip flxeion and knee extension, 2/5 ankle DF and 0/5 EHL 3+\5 strength left hip flxeion and knee extension, 2/5 ankle DF and 0/5 EHL (exam limited due to pain) +groin pain with internal rotation of right leg SKIN: left heel with blanchable erythema, right midfoot with blanchable erythema LABORATORY DATA: Please see below. ASSESSMENT:74-year-old M with past medical history of bilat THR who presents status post fall with left hip dislocation PLAN: 1.Rehab- PT/OT advance gait and ADLs, maintain posterior hip precautions and use abduction pillow, heel floats 2. Cardiac- hx of HTN c/u Enalapril and ASA -HLD- lopid 3. 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 Resp- encourage incentive spirometry, monitor for infection 4. Ortho s/p left hip dislocation, ortho consulted -right hip pain, CT negative for fracture-improving with oral pain meds 5. Endo- hx of hypothyroidism c/u Synthroid, dm c/u ISS 6. renal- s/p transplant c/u prednisone and imuran- watch for Luther while on ANKITA-I- stable -citric-acid/sodium chloride 7. pain- tylenol and cymbalta (increased to 90mg daily) , oxycodone prn and 10mg q am in advance of therapy 8. gi ppx- protonix 9. dvt ppx- heparin and teds 10. Hyponatremia- 04-05-20 Na of 130, c/u fluid restriction and monitor 11. - urinary retention, will order UA/Ucx and start flomax 12. Dispo- 04-14-20 to home, progressing towards goals Allergies Coded Allergies: No Known Allergies (Unverified , 04/25/18) Vital Signs Vital Signs Date Time Temp Pulse Resp B/P (MAP) Pulse Ox O2 Delivery O2 Flow Rate FiO2 04/07/20 08:40 17 Room Air 04/07/20 08:38 137/60 04/07/20 05:57 97.9 81 99 Laboratory Data CBC/BMP Laboratory Tests 04/07/20 06:31 Labs 24H Laboratory Tests 2 04/06/20 12:14: Bedside Glucose (Misc Panel) 192H 04/06/20 16:36: Bedside Glucose (Misc Panel) 128H 04/06/20 19:50: Bedside Glucose (Misc Panel) 125H 04/07/20 06:31: Immature Granulocyte % (Auto) 1.1, Neutrophils (%) (Auto) 81.2H, Lymphocytes (%) (Auto) 10.5L, Monocytes (%) (Auto) 6.9H, Eosinophils (%) (Auto) 0.2, Basophils (%) (Auto) 0.1, Neutrophils # (Auto) 6.8, Lymphocytes # (Auto) 0.9L, Monocytes # (Auto) 0.6, Eosinophils # (Auto) 0.0, Basophils # (Auto) 0.0, Nucleated Red Blood Cells % (auto) 0.0, Anion Gap 6L, Glomerular Filtration Rate > 60.0, Calcium Level 8.0L Current Medications Current Medications Current Medications Medications (Trade) Dose Ordered Sig/Elieser Route PRN Reason Start Time Stop Time Status Last Admin Dose Admin Acetaminophen (Tylenol Tab) 1,000 mg TID PO 03/30/20 16:00 04/07/20 08:43 Aspirin (Ecotrin) 81 mg DAILY PO 03/31/20 09:00 04/07/20 08:36 Azathioprine (Imuran) 150 mg DAILY PO 03/31/20 09:00 04/07/20 08:41 Bisacodyl (Dulcolax Tab) 5 mg DAILYPRN PRN PO CONSTIPATION 03/30/20 16:15 Brimonidine Tartrate (Alphagan P 0.1%) 1 drop BID OS 03/30/20 21:00 04/07/20 08:44 Citric Acid/ Sodium Citrate (Bicitra) 30 ml BID PO 03/30/20 21:00 04/07/20 08:35 Dextrose (Dextrose 50%) 25 ml ASDIRECTED PRN IV SEE LABEL COMMENTS 03/30/20 16:15 Docusate Sodium (Colace) 100 mg BID PO 03/30/20 21:00 04/03/20 08:18 Duloxetine HCl (Cymbalta) 60 mg DAILY PO 03/31/20 09:00 04/01/20 11:23 DC 04/01/20 07:36 Duloxetine HCl (Cymbalta) 90 mg DAILY PO 04/02/20 09:00 04/07/20 08:36 Enalapril Maleate (Vasotec) 2.5 mg DAILY PO 03/31/20 09:00 04/07/20 08:38 Gemfibrozil (Lopid) 600 mg BID@0730,2050 PO 03/30/20 17:30 04/07/20 08:39 Glucagon (Glucagon) 1 mg ASDIRECTED PRN SC SEE LABEL COMMENTS 03/30/20 16:15 Glucose (Glucose) 16 GM ASDIRECTED PRN PO SEE LABEL COMMENTS 03/30/20 16:15 Heparin Sodium (Porcine) (Heparin) 5,000 units Q12H SC 03/30/20 21:00 04/07/20 08:41 Insulin Human Lispro (HumaLOG INSULIN) SEE PROTOCOL TABLE AC SC 03/30/20 17:30 04/07/20 08:42 Insulin Human Lispro (HumaLOG INSULIN) SEE PROTOCOL TABLE QHS SC 03/30/20 21:00 04/03/20 20:45 Levothyroxine Sodium (Synthroid) 100 mcg DAILY@06 PO 03/31/20 06:00 04/07/20 05:33 Lidocaine (Lidoderm Patch) 1 patch DAILY TD 03/31/20 09:00 04/07/20 08:43 Non-Formulary Medication ( See Comment Field Below ) REMOVE LIDODERM PATCH DAILY@21 XX 03/31/20 21:00 04/06/20 20:32 Oxycodone HCl (Roxicodone, Oxyir) 5 mg Q4HP PRN PO PAIN 03/30/20 16:15 04/06/20 13:43 Oxycodone HCl (Roxicodone, Oxyir) 10 mg DAILY PO 04/02/20 09:00 04/07/20 08:40 Pantoprazole Sodium (Protonix) 40 mg DAILY PO 03/30/20 09:00 04/07/20 08:36 Prednisone (Deltasone) 20 mg Q48H PO 04/01/20 09:00 04/07/20 08:35 Ramelteon (Rozerem) 8 mg QHS PRN PO INSOMNIA 04/04/20 21:45 04/04/20 22:28 Senna (Senokot) 1 tab QHS PO 03/30/20 21:00 03/30/20 21:50 Timolol Maleate (Timoptic 0.5% Ophth Disha) 1 drop BID OS 03/30/20 21:00 04/07/20 08:44 TAQUERIA GIBBS MD Apr 07, 2020 11:37
--- NOTE | 2020-04-07 11:38 | IPNPDOC ---
PM&R Progress Note DATE OF SERVICE: Apr 07, 2020 Consulting Solution Manager Progress Note Subjective: Patient reporting persistent urinary retention, denies fevers or chills. REVIEW OF SYSTEMS: The following is a completed review of systems and has been reviewed. Review of systems otherwise unremarkable. PAIN: Patient self reports right groin pain (improving) EYES: No recent vision changes EARS, NOSE, & THROAT: No throat pain, or dysphagia, or rhinorrhea CARDIOVASCULAR: Denies chest pain or palpitations PULMONARY: Denies shortness of breath GASTROINTESTINAL: Denies constipation/diarrhea GENITOURINARY: denies dysuria, +retention MUSCULOSKELETAL: LE weakness NEUROLOGICAL:no tremor or paresthesias HEMATOLOGICAL: + easy bruising SKIN: scattered ecchymosis PSYCHIATRIC: Unremarkable All other review of systems found to be negative. PHYSICAL EXAMINATION: VITAL SIGNS: Please see below. GENERAL: Pleasant and cooperative. No acute distress. HEENT: PERRL. Extraocular movements intact. Clear conjunctiva CARDIOVASCULAR: Regular rate and rhythm. No murmurs, rubs, or gallops LUNGS: Clear to auscultation bilaterally. No wheezes. No rhonchi ABDOMEN: Soft, nontender, nondistended. Positive bowel sounds. Normal active bowel sounds NEUROLOGICAL: Alert and oriented times three. Cranial nerves II through XII grossly intact. Sensation diminished to light touch and pinprick bilat LE in stocking pattern EXTREMITIES: 5-\5 strength bilateral upper extremities. 3+\5 strength right hip flxeion and knee extension, 2/5 ankle DF and 0/5 EHL 3+\5 strength left hip flxeion and knee extension, 2/5 ankle DF and 0/5 EHL (exam limited due to pain) +groin pain with internal rotation of right leg SKIN: left heel with blanchable erythema, right midfoot with blanchable erythema LABORATORY DATA: Please see below. ASSESSMENT:74-year-old M with past medical history of bilat THR who presents status post fall with left hip dislocation PLAN: 1.Rehab- PT/OT advance gait and ADLs, maintain posterior hip precautions and use abduction pillow, heel floats 2. Cardiac- hx of HTN c/u Enalapril and ASA -HLD- lopid 3. 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 Resp- encourage incentive spirometry, monitor for infection 4. Ortho s/p left hip dislocation, ortho consulted -right hip pain, CT negative for fracture-improving with oral pain meds 5. Endo- hx of hypothyroidism c/u Synthroid, dm c/u ISS 6. renal- s/p transplant c/u prednisone and imuran- watch for Luther while on ANKITA-I- stable -citric-acid/sodium chloride 7. pain- tylenol and cymbalta (increased to 90mg daily) , oxycodone prn and 10mg q am in advance of therapy 8. gi ppx- protonix 9. dvt ppx- heparin and teds 10. Hyponatremia- 04-05-20 Na of 130 up to 134, unclear if this is due to fluid restriction that was started on 04-05-20 or NS IVF that was given overnight, c/u to monitor and will d/c fluid restriction 11. - urinary retention, ordered UA/Ucx and start flomax 12. Dispo- 04-14-20 to home, progressing towards goals Allergies Coded Allergies: No Known Allergies (Unverified , 04/25/18) Vital Signs Vital Signs Date Time Temp Pulse Resp B/P (MAP) Pulse Ox O2 Delivery O2 Flow Rate FiO2 04/07/20 08:40 17 Room Air 04/07/20 08:38 137/60 04/07/20 05:57 97.9 81 99 Laboratory Data CBC/BMP Laboratory Tests 04/07/20 06:31 Labs 24H Laboratory Tests 2 04/06/20 12:14: Bedside Glucose (Misc Panel) 192H 04/06/20 16:36: Bedside Glucose (Misc Panel) 128H 04/06/20 19:50: Bedside Glucose (Misc Panel) 125H 04/07/20 06:31: Immature Granulocyte % (Auto) 1.1, Neutrophils (%) (Auto) 81.2H, Lymphocytes (%) (Auto) 10.5L, Monocytes (%) (Auto) 6.9H, Eosinophils (%) (Auto) 0.2, Basophils (%) (Auto) 0.1, Neutrophils # (Auto) 6.8, Lymphocytes # (Auto) 0.9L, Monocytes # (Auto) 0.6, Eosinophils # (Auto) 0.0, Basophils # (Auto) 0.0, Nucleated Red Blood Cells % (auto) 0.0, Anion Gap 6L, Glomerular Filtration Rate > 60.0, Calcium Level 8.0L Current Medications Current Medications Current Medications Medications (Trade) Dose Ordered Sig/Elieser Route PRN Reason Start Time Stop Time Status Last Admin Dose Admin Acetaminophen (Tylenol Tab) 1,000 mg TID PO 03/30/20 16:00 04/07/20 08:43 Aspirin (Ecotrin) 81 mg DAILY PO 03/31/20 09:00 04/07/20 08:36 Azathioprine (Imuran) 150 mg DAILY PO 03/31/20 09:00 04/07/20 08:41 Bisacodyl (Dulcolax Tab) 5 mg DAILYPRN PRN PO CONSTIPATION 03/30/20 16:15 Brimonidine Tartrate (Alphagan P 0.1%) 1 drop BID OS 03/30/20 21:00 04/07/20 08:44 Citric Acid/ Sodium Citrate (Bicitra) 30 ml BID PO 03/30/20 21:00 04/07/20 08:35 Dextrose (Dextrose 50%) 25 ml ASDIRECTED PRN IV SEE LABEL COMMENTS 03/30/20 16:15 Docusate Sodium (Colace) 100 mg BID PO 03/30/20 21:00 04/03/20 08:18 Duloxetine HCl (Cymbalta) 60 mg DAILY PO 03/31/20 09:00 04/01/20 11:23 DC 04/01/20 07:36 Duloxetine HCl (Cymbalta) 90 mg DAILY PO 04/02/20 09:00 04/07/20 08:36 Enalapril Maleate (Vasotec) 2.5 mg DAILY PO 03/31/20 09:00 04/07/20 08:38 Gemfibrozil (Lopid) 600 mg BID@3630,1730 PO 03/30/20 17:30 04/07/20 08:39 Glucagon (Glucagon) 1 mg ASDIRECTED PRN SC SEE LABEL COMMENTS 03/30/20 16:15 Glucose (Glucose) 16 GM ASDIRECTED PRN PO SEE LABEL COMMENTS 03/30/20 16:15 Heparin Sodium (Porcine) (Heparin) 5,000 units Q12H SC 03/30/20 21:00 04/07/20 08:41 Insulin Human Lispro (HumaLOG INSULIN) SEE PROTOCOL TABLE AC SC 03/30/20 17:30 04/07/20 08:42 Insulin Human Lispro (HumaLOG INSULIN) SEE PROTOCOL TABLE QHS SC 03/30/20 21:00 04/03/20 20:45 Levothyroxine Sodium (Synthroid) 100 mcg DAILY@06 PO 03/31/20 06:00 04/07/20 05:33 Lidocaine (Lidoderm Patch) 1 patch DAILY TD 03/31/20 09:00 04/07/20 08:43 Non-Formulary Medication ( See Comment Field Below ) REMOVE LIDODERM PATCH DAILY@21 XX 03/31/20 21:00 04/06/20 20:32 Oxycodone HCl (Roxicodone, Oxyir) 5 mg Q4HP PRN PO PAIN 03/30/20 16:15 04/06/20 13:43 Oxycodone HCl (Roxicodone, Oxyir) 10 mg DAILY PO 04/02/20 09:00 04/07/20 08:40 Pantoprazole Sodium (Protonix) 40 mg DAILY PO 03/30/20 09:00 04/07/20 08:36 Prednisone (Deltasone) 20 mg Q48H PO 04/01/20 09:00 04/07/20 08:35 Ramelteon (Rozerem) 8 mg QHS PRN PO INSOMNIA 04/04/20 21:45 04/04/20 22:28 Senna (Senokot) 1 tab QHS PO 03/30/20 21:00 03/30/20 21:50 Timolol Maleate (Timoptic 0.5% Ophth Disha) 1 drop BID OS 03/30/20 21:00 04/07/20 08:44 TAQUERIA GIBBS MD Apr 07, 2020 11:38
[2020-04-07] MEDS: TAMSULOSIN 0.4 MG CAP PO SCH (12:58)
[2020-04-07 14:00] VITALS: BP 108/58
[2020-04-07] MEDS: oxyCODONE 5MG TAB PO PRN (15:04)
[2020-04-07 20:30] VITALS: BP 131/69
[2020-04-07] MEDS: **NOTE PATIENT COMMENT** MISC XX SCH (20:36)
[2020-04-07] MEDS: SENNA 8.6 MG TAB (SENOKOT) PO SCH (20:36)
[2020-04-08] MEDS: LEVOTHYROXINE 100MCG TABLET (0.1MG) PO SCH (05:08)
[2020-04-08 06:15] VITALS: BP 125/64
[2020-04-08] MEDS: LIDOCAINE 5% (LIDODERM) PATCH TD SCH (08:52)
[2020-04-08] MEDS: gemfibroziL 600 MG TAB PO SCH ×2 (08:52→17:32)
[2020-04-08] MEDS: BICITRA 30ML SOLN UDC PO SCH ×2 (08:52→20:01)
[2020-04-08] MEDS: HEPARIN SOD (PORCINE) 5000UNITS/ML VIAL (J1644 PER 1000UNITS) SC SCH ×2 (08:52→20:02)
[2020-04-08] MEDS: ACETAMINOPHEN 500 MG TAB PO SCH ×3 (08:53→20:01)
[2020-04-08] MEDS: TAMSULOSIN 0.4 MG CAP PO SCH (08:53)
[2020-04-08] MEDS: ASPIRIN 81 MG ENTERIC TAB PO SCH (08:53)
[2020-04-08] MEDS: PANTOPRAZOLE 40MG TAB (PROTONIX) PO SCH (08:53)
[2020-04-08] MEDS: DULoxetine 30 MG CAP (CYMBALTA) PO SCH (08:53)
[2020-04-08] MEDS: ENALAPRIL MALEATE 5 MG TAB PO SCH (08:55)
[2020-04-08] MEDS: oxyCODONE 5MG TAB PO SCH (08:55)
[2020-04-08] MEDS: TIMOLOL MALEATE 0.5% OPHTH SOLN 5 ML OS SCH ×2 (08:56→20:02)
[2020-04-08] MEDS: BRIMONIDINE 0.1% OPHTH SOLN 5 ML OS SCH ×2 (08:56→20:02)
[2020-04-08] MEDS: DOCUSATE SODIUM 100 MG CAP PO SCH (08:59)
[2020-04-08] MEDS: azaTHIOprine 50 MG TAB (J7500) PO SCH (08:59)
[2020-04-08] MEDS: HumaLOG INSULIN (NovoLOG) PER UNIT SC SCH ×4 (09:02→20:02)
[2020-04-08] MEDS: LACTOBACILLUS ACIDOPHILUS CAP (BACID) PO SCH ×3 (12:26→20:01)
[2020-04-08] MEDS: LevoFLOXacin 750 MG TABLET PO SCH (12:26)
--- NOTE | 2020-04-08 13:19 | IPNPDOC ---
PM&R Progress Note DATE OF SERVICE: Apr 08, 2020 Head Baggage Porter Progress Note Subjective: Patient states he is agreeable to starting an antibiotic for his urine, denies fever or chills, and able to participate in therapy. REVIEW OF SYSTEMS: The following is a completed review of systems and has been reviewed. Review of systems otherwise unremarkable. PAIN: Patient self reports right groin pain (improving) EYES: No recent vision changes EARS, NOSE, & THROAT: No throat pain, or dysphagia, or rhinorrhea CARDIOVASCULAR: Denies chest pain or palpitations PULMONARY: Denies shortness of breath GASTROINTESTINAL: Denies constipation/diarrhea GENITOURINARY: denies dysuria, +retention MUSCULOSKELETAL: LE weakness NEUROLOGICAL:no tremor or paresthesias HEMATOLOGICAL: + easy bruising SKIN: scattered ecchymosis PSYCHIATRIC: Unremarkable All other review of systems found to be negative. PHYSICAL EXAMINATION: VITAL SIGNS: Please see below. GENERAL: Pleasant and cooperative. No acute distress. HEENT: PERRL. Extraocular movements intact. Clear conjunctiva CARDIOVASCULAR: Regular rate and rhythm. No murmurs, rubs, or gallops LUNGS: Clear to auscultation bilaterally. No wheezes. No rhonchi ABDOMEN: Soft, nontender, nondistended. Positive bowel sounds. Normal active bowel sounds NEUROLOGICAL: Alert and oriented times three. Cranial nerves II through XII grossly intact. Sensation diminished to light touch and pinprick bilat LE in stocking pattern EXTREMITIES: 5-\5 strength bilateral upper extremities. 3+\5 strength right hip flxeion and knee extension, 2/5 ankle DF and 0/5 EHL 3+\5 strength left hip flxeion and knee extension, 2/5 ankle DF and 0/5 EHL (exam limited due to pain) +groin pain with internal rotation of right leg SKIN: left heel with blanchable erythema, right midfoot with blanchable erythema LABORATORY DATA: Please see below. ASSESSMENT:74-year-old M with past medical history of bilat THR who presents status post fall with left hip dislocation PLAN: 1.Rehab- PT/OT advance gait and ADLs, maintain posterior hip precautions and use abduction pillow, heel floats 2. Cardiac- hx of HTN c/u Enalapril and ASA -HLD- lopid 3. 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 Resp- encourage incentive spirometry, monitor for infection 4. Ortho s/p left hip dislocation, ortho consulted -right hip pain, CT negative for fracture-improving with oral pain meds 5. Endo- hx of hypothyroidism c/u Synthroid, dm c/u ISS 6. renal- s/p transplant c/u prednisone and imuran- watch for Luther while on ANKITA-I- stable -citric-acid/sodium chloride 7. pain- tylenol and cymbalta (increased to 90mg daily) , oxycodone prn and 10mg q am in advance of therapy 8. gi ppx- protonix 9. dvt ppx- heparin and teds 10. Hyponatremia- resolved 11. - urinary retention, UA posotive, will start LEvaquin while awaiting Ucx, c/u flomax 12. Dispo- 04-14-20 to home, progressing slowly towards goals Allergies Coded Allergies: No Known Allergies (Unverified , 04/25/18) Vital Signs Vital Signs Date Time Temp Pulse Resp B/P (MAP) Pulse Ox O2 Delivery O2 Flow Rate FiO2 04/08/20 09:25 18 04/08/20 08:55 125/64 04/08/20 06:15 97.5 100 98 Room Air Laboratory Data Labs 24H Laboratory Tests 2 04/07/20 16:43: Bedside Glucose (Misc Panel) 207H 04/07/20 20:04: Bedside Glucose (Misc Panel) 183H 04/07/20 20:59: Urine Color JAYRO, Urine Appearance CLOUDYH, Urine pH 8.0, Urine Specific [place] 1.015, Urine Protein 1+H, Urine Glucose (UA) NEGATIVE, Urine Ketones NEGATIVE, Urine Blood 1+H, Urine Nitrite NEGATIVE, Urine Bilirubin NEGATIVE, Urine Urobilinogen 2.0H, Urine Leukocyte Esterase 3+H, Urine WBC (Auto) 11H, Urine RBC (Auto) 6H, Urine Hyaline Casts (Auto) 0, Urine Bacteria (Auto) 1+H, Urine Squamous Epithelial Cells 0, Urine Sperm (Auto) 04/08/20 06:15: Bedside Glucose (Misc Panel) 174H 04/08/20 12:14: Bedside Glucose (Misc Panel) 190H Microbiology Microbiology 04/07/20 Urine Culture, Received Pending Current Medications Current Medications Current Medications Medications (Trade) Dose Ordered Sig/Elieser Route PRN Reason Start Time Stop Time Status Last Admin Dose Admin Acetaminophen (Tylenol Tab) 1,000 mg TID PO 03/30/20 16:00 04/08/20 08:53 Aspirin (Ecotrin) 81 mg DAILY PO 03/31/20 09:00 04/08/20 08:53 Azathioprine (Imuran) 150 mg DAILY PO 03/31/20 09:00 04/08/20 08:59 Bisacodyl (Dulcolax Tab) 5 mg DAILYPRN PRN PO CONSTIPATION 03/30/20 16:15 Brimonidine Tartrate (Alphagan P 0.1%) 1 drop BID OS 03/30/20 21:00 04/08/20 08:56 Citric Acid/ Sodium Citrate (Bicitra) 30 ml BID PO 03/30/20 21:00 04/08/20 08:52 Dextrose (Dextrose 50%) 25 ml ASDIRECTED PRN IV SEE LABEL COMMENTS 03/30/20 16:15 Docusate Sodium (Colace) 100 mg BID PO 03/30/20 21:00 04/03/20 08:18 Duloxetine HCl (Cymbalta) 60 mg DAILY PO 03/31/20 09:00 04/01/20 11:23 DC 04/01/20 07:36 Duloxetine HCl (Cymbalta) 90 mg DAILY PO 04/02/20 09:00 04/08/20 08:53 Enalapril Maleate (Vasotec) 2.5 mg DAILY PO 03/31/20 09:00 04/08/20 08:55 Gemfibrozil (Lopid) 600 mg BID@0730,1730 PO 03/30/20 17:30 04/08/20 08:52 Glucagon (Glucagon) 1 mg ASDIRECTED PRN SC SEE LABEL COMMENTS 03/30/20 16:15 Glucose (Glucose) 16 GM ASDIRECTED PRN PO SEE LABEL COMMENTS 03/30/20 16:15 Heparin Sodium (Porcine) (Heparin) 5,000 units Q12H SC 03/30/20 21:00 04/08/20 08:52 Insulin Human Lispro (HumaLOG INSULIN) SEE PROTOCOL TABLE AC SC 03/30/20 17:30 04/08/20 12:27 Insulin Human Lispro (HumaLOG INSULIN) SEE PROTOCOL TABLE QHS SC 03/30/20 21:00 04/03/20 20:45 Lactobacillus Acidophilus (Bacid) 1 ea TID PO 04/08/20 09:00 04/08/20 12:26 Levofloxacin (Levaquin) 750 mg DAILY@06 PO 04/08/20 06:00 04/08/20 12:26 Levothyroxine Sodium (Synthroid) 100 mcg DAILY@06 PO 03/31/20 06:00 04/08/20 05:08 Lidocaine (Lidoderm Patch) 1 patch DAILY TD 03/31/20 09:00 04/08/20 08:52 Loperamide HCl (Imodium) 4 mg TID PO 04/08/20 13:30 UNV Non-Formulary Medication ( See Comment Field Below ) REMOVE LIDODERM PATCH DAILY@21 XX 03/31/20 21:00 04/07/20 20:36 Oxycodone HCl (Roxicodone, Oxyir) 5 mg Q4HP PRN PO PAIN 03/30/20 16:15 04/07/20 15:04 Oxycodone HCl (Roxicodone, Oxyir) 10 mg DAILY PO 04/02/20 09:00 04/08/20 08:55 Pantoprazole Sodium (Protonix) 40 mg DAILY PO 03/30/20 09:00 04/08/20 08:53 Prednisone (Deltasone) 20 mg Q48H PO 04/01/20 09:00 04/07/20 08:35 Ramelteon (Rozerem) 8 mg QHS PRN PO INSOMNIA 04/04/20 21:45 04/04/20 22:28 Senna (Senokot) 1 tab QHS PO 03/30/20 21:00 03/30/20 21:50 Tamsulosin HCl (Flomax) 0.4 mg DAILY PO 04/07/20 11:45 04/08/20 08:53 Timolol Maleate (Timoptic 0.5% Ophth Disha) 1 drop BID OS 03/30/20 21:00 04/08/20 08:56 TAQUERIA GIBBS MD Apr 08, 2020 13:19
[2020-04-08] MEDS ORDERED: LOPERAMIDE 2 MG CAPLET PO ONE (13:30)
[2020-04-08 14:00] VITALS: BP 102/63
--- NOTE | 2020-04-08 17:56 | IPNPDOC ---
Date Seen The patient was seen on 04/08/20. Progress Note SUBJECTIVE: Reports persistent R. hip pain but otherwise offered no complaints. UA was obtained last night due to urinary retention. + LE and WBC. Started on Levaquin and Tamsulosin. Patient denies any dysuria. OBJECTIVE PHYSICAL EXAMINATION: VITAL SIGNS: Please see below. General: No acute distress, Alert Eyes: Normal sclera, EOMI HENT: Atraumatic Cardiovascular: Normal rate Pulmonary: Clear to auscultation b/l, no wheezing GI: Soft, nontender, nondistended Skin: Warm and dry Neuro: CN grossly intact. No focal deficits. Psych: oriented x 3 LABORATORY DATA, IMAGING STUDIES, MICROBIOLOGY: Please see below. DVT prophylaxis ordered?: HSQ ASSESSMENT AND PLAN: 74 year old male with PMH polycystic kidney disease s/p renal transplant, DM, Hypothyroidism and HTN presented to [facility] after a fall at home resulting in a L. hip dislocation. He underwent a reduction in the ED and was evaluated by orthope dic team. He has been receiving rehab in ARU while being managed for pain. Has been on oxycodone standing as well as PRN. Complains of severe pain with ambulation/physical therapy. 1. L. hip dislocation post fall - c/w PT and pain management. Had been seen by ortho. - There is a risk for a recurrence of dislocation, in that case, may need a prosthetic brace placement. - On tylenol, cymbalta and oxycodone. Cymbalta had been increased from home dose. 2. HTN - BP controlled on Enalapril. 3. DM - ISS with ACHS. 4. Polycystic kidney disease - s/p renal transplant on chronic prednisone and azathioprine. 5. Hypothyroidism - c/w synthroid 100 mcg daily home dose. 6. Urinary Retention - Monitor on flomax. - UA + LE, f/u urine culture, no other symptoms otherwise. On levaquin. VS, I&O, 24H, Fishbone Vital Signs/I&O Vital Signs Date Time Temp Pulse Resp B/P (MAP) Pulse Ox O2 Delivery O2 Flow Rate FiO2 04/08/20 14:00 96.0 101 16 102/63 (76) 100 Room Air I&O- Last 24 Hours up to 6 AM 04/08/20 06:00 Intake Total 420 ml Output Total 1250 ml Balance -830 ml Laboratory Data 24H LABS Laboratory Tests 2 04/07/20 20:04: Bedside Glucose (Misc Panel) 183H 04/07/20 20:59: Urine Color JAYRO, Urine Appearance CLOUDYH, Urine pH 8.0, Urine Specific [place] 1.015, Urine Protein 1+H, Urine Glucose (UA) NEGATIVE, Urine Ketones NEGATIVE, Urine Blood 1+H, Urine Nitrite NEGATIVE, Urine Bilirubin NEGATIVE, Urine Urobilinogen 2.0H, Urine Leukocyte Esterase 3+H, Urine WBC (Auto) 11H, [place] RBC (Auto) 6H, Urine Hyaline Casts (Auto) 0, Urine Bacteria (Auto) 1+H, Urine Squamous Epithelial Cells 0, Urine Sperm (Auto) 04/08/20 06:15: Bedside Glucose (Misc Panel) 174H 04/08/20 12:14: Bedside Glucose (Misc Panel) 190H 04/08/20 16:45: Bedside Glucose (Misc Panel) 177H Microbiology Microbiology 04/07/20 Urine Culture, Received Pending CARMEN KAUFMAN MD Apr 08, 2020 17:56
[2020-04-08] MEDS: **NOTE PATIENT COMMENT** MISC XX SCH (20:03)
[2020-04-08 20:20] VITALS: BP 96/54
[2020-04-08] MEDS ORDERED: LOPERAMIDE 2 MG CAPLET PO SCH (21:00)
[2020-04-09] MEDS: LevoFLOXacin 750 MG TABLET PO SCH (05:23)
[2020-04-09] MEDS: LEVOTHYROXINE 100MCG TABLET (0.1MG) PO SCH (05:24)
[2020-04-09 06:00] VITALS: BP 129/68
[2020-04-09 07:11] LABS: BASO % 0.2 % (0.0-1.0); HEMATOCRIT 23.2 % (42.0-52.0); HEMOGLOBIN 7.7 g/dl (13.5-17.5); LYMPH # 0.7 10^3/uL (1.5-5.0); LYMPH % 8.1 % (24.0-44.0); MEAN CORPUSCULAR HEMOGLOBIN 28.9 pg (27.0-33.0); MEAN CORPUSCULAR HGB CONC 33.2 g/dl (32.0-36.5); MEAN CORPUSCULAR VOLUME 87.2 fl (80.0-96.0); MONO # 0.5 10^3/uL (0.0-0.8); MONO % 5.9 % (0.0-5.0); NEUTROPHILS # 7.2 10^3/uL (1.5-8.5); PLATELET COUNT, AUTOMATED 208 10^3/uL (150-450); RED BLOOD COUNT 2.66 10^6/uL (4.30-6.10); WHITE BLOOD COUNT 8.5 10^3/uL (4.0-10.0)
[2020-04-09] MEDS: BICITRA 30ML SOLN UDC PO SCH ×2 (08:42→20:43)
[2020-04-09] MEDS: LIDOCAINE 5% (LIDODERM) PATCH TD SCH (08:43)
[2020-04-09] MEDS: DULoxetine 30 MG CAP (CYMBALTA) PO SCH (08:43)
[2020-04-09] MEDS: ASPIRIN 81 MG ENTERIC TAB PO SCH (08:43)
[2020-04-09] MEDS: HEPARIN SOD (PORCINE) 5000UNITS/ML VIAL (J1644 PER 1000UNITS) SC SCH ×2 (08:43→20:44)
[2020-04-09] MEDS: HumaLOG INSULIN (NovoLOG) PER UNIT SC SCH ×4 (08:43→20:45)
[2020-04-09] MEDS: azaTHIOprine 50 MG TAB (J7500) PO SCH (08:44)
[2020-04-09] MEDS: ENALAPRIL MALEATE 5 MG TAB PO SCH (08:44)
[2020-04-09] MEDS: LACTOBACILLUS ACIDOPHILUS CAP (BACID) PO SCH ×3 (08:44→20:45)
[2020-04-09] MEDS: predniSONE 20 MG TAB PO SCH (08:44)
[2020-04-09] MEDS: oxyCODONE 5MG TAB PO SCH (08:45)
[2020-04-09] MEDS: TAMSULOSIN 0.4 MG CAP PO SCH (08:45)
[2020-04-09] MEDS: gemfibroziL 600 MG TAB PO SCH ×2 (08:45→17:34)
[2020-04-09] MEDS: TIMOLOL MALEATE 0.5% OPHTH SOLN 5 ML OS SCH ×2 (08:45→20:46)
[2020-04-09] MEDS: PANTOPRAZOLE 40MG TAB (PROTONIX) PO SCH (08:45)
[2020-04-09] MEDS: BRIMONIDINE 0.1% OPHTH SOLN 5 ML OS SCH ×2 (08:45→20:46)
[2020-04-09] MEDS: ACETAMINOPHEN 500 MG TAB PO SCH ×3 (08:46→20:45)
[2020-04-09 11:55] VITALS: BP 97/61
[2020-04-09] MEDS: LOPERAMIDE 2 MG CAPLET PO PRN (12:02)
[2020-04-09 12:03] VITALS: BP 121/60
[2020-04-09 14:00] VITALS: BP 111/62
[2020-04-09 15:42] LABS: BASO % 0.1 % (0.0-1.0); HEMATOCRIT 25.4 % (42.0-52.0); HEMOGLOBIN 8.5 g/dl (13.5-17.5); LYMPH # 0.5 10^3/uL (1.5-5.0); MEAN CORPUSCULAR HEMOGLOBIN 28.9 pg (27.0-33.0); MEAN CORPUSCULAR HGB CONC 33.5 g/dl (32.0-36.5); MEAN CORPUSCULAR VOLUME 86.4 fl (80.0-96.0); MONO # 0.2 10^3/uL (0.0-0.8); MONO % 2.6 % (0.0-5.0); NEUTROPHILS # 8.3 10^3/uL (1.5-8.5); NEUTROPHILS % 91.2 % (36.0-66.0); PLATELET COUNT, AUTOMATED 227 10^3/uL (150-450); RED BLOOD COUNT 2.94 10^6/uL (4.30-6.10); WHITE BLOOD COUNT 9.1 10^3/uL (4.0-10.0)
--- NOTE | 2020-04-09 18:14 | IPNPDOC ---
Date Seen The patient was seen on 04/09/20. Progress Note Hb noted to drop to 7.7 today from 9-10 range since admission. No evidence of blood reported in stool or other sources. Repeat Hb up to 8.5 today. Repeat another CBC to see and monitor for any bleeds. VS, I&O, 24H, [place] Laboratory Data Microbiology CARMEN KAUFMAN MD Apr 09, 2020 18:14
[2020-04-09] MEDS: **NOTE PATIENT COMMENT** MISC XX SCH (20:46)
[2020-04-09 21:00] VITALS: BP 118/65
[2020-04-10] MEDS: LEVOTHYROXINE 100MCG TABLET (0.1MG) PO SCH (05:29)
[2020-04-10] MEDS: LevoFLOXacin 750 MG TABLET PO SCH (05:29)
[2020-04-10 06:26] VITALS: BP 135/76
[2020-04-10 07:26] LABS: BASO % 0.2 % (0.0-1.0); HEMATOCRIT 24.1 % (42.0-52.0); LYMPH # 0.7 10^3/uL (1.5-5.0); LYMPH % 12.7 % (24.0-44.0); MEAN CORPUSCULAR HEMOGLOBIN 29.4 pg (27.0-33.0); MEAN CORPUSCULAR HGB CONC 33.2 g/dl (32.0-36.5); MEAN CORPUSCULAR VOLUME 88.6 fl (80.0-96.0); MONO # 0.3 10^3/uL (0.0-0.8); MONO % 6.2 % (0.0-5.0); NEUTROPHILS # 4.1 10^3/uL (1.5-8.5); NEUTROPHILS % 79.9 % (36.0-66.0); PLATELET COUNT, AUTOMATED 221 10^3/uL (150-450); RED BLOOD COUNT 2.72 10^6/uL (4.30-6.10); WHITE BLOOD COUNT 5.1 10^3/uL (4.0-10.0)
[2020-04-10] MEDS: PANTOPRAZOLE 40MG TAB (PROTONIX) PO SCH (07:56)
[2020-04-10] MEDS: LACTOBACILLUS ACIDOPHILUS CAP (BACID) PO SCH ×3 (07:56→21:30)
[2020-04-10] MEDS: HEPARIN SOD (PORCINE) 5000UNITS/ML VIAL (J1644 PER 1000UNITS) SC SCH (07:57)
[2020-04-10] MEDS: TAMSULOSIN 0.4 MG CAP PO SCH (07:57)
[2020-04-10] MEDS: BICITRA 30ML SOLN UDC PO SCH ×2 (07:57→21:31)
[2020-04-10] MEDS: gemfibroziL 600 MG TAB PO SCH ×2 (07:57→16:53)
[2020-04-10] MEDS: ASPIRIN 81 MG ENTERIC TAB PO SCH (07:58)
[2020-04-10] MEDS: azaTHIOprine 50 MG TAB (J7500) PO SCH (07:58)
[2020-04-10] MEDS: DULoxetine 30 MG CAP (CYMBALTA) PO SCH (07:58)
[2020-04-10] MEDS: ACETAMINOPHEN 500 MG TAB PO SCH ×3 (07:59→21:30)
[2020-04-10] MEDS: oxyCODONE 5MG TAB PO SCH (07:59)
[2020-04-10] MEDS: HumaLOG INSULIN (NovoLOG) PER UNIT SC SCH ×4 (08:00→21:00)
[2020-04-10] MEDS: ENALAPRIL MALEATE 5 MG TAB PO SCH (08:00)
[2020-04-10] MEDS: BRIMONIDINE 0.1% OPHTH SOLN 5 ML OS SCH ×2 (08:01→21:31)
[2020-04-10] MEDS: TIMOLOL MALEATE 0.5% OPHTH SOLN 5 ML OS SCH ×2 (08:01→21:31)
[2020-04-10] MEDS: LIDOCAINE 5% (LIDODERM) PATCH TD SCH (08:01)
--- NOTE | 2020-04-10 13:24 | IPNPDOC ---
Date Seen The patient was seen on 04/10/20. Progress Note SUBJECTIVE: Reports still only complains of hip pain. Hb noted to gradually decline from 10 to 7.7 over the past 3 days. Repeat H/H shows 8.5 then 8.0 today. No reported bleeding noted. urine culture + Klebsiella. OBJECTIVE PHYSICAL EXAMINATION: VITAL SIGNS: Please see below. General: No acute distress, Alert Eyes: Normal sclera, EOMI HENT: Atraumatic Cardiovascular: Normal rate Pulmonary: Clear to auscultation b/l, no wheezing GI: Soft, nontender, nondistended Skin: Diffuse bruising throughout body, thin skin. No significant swelling over b/l hips or other joints. Neuro: CN grossly intact. No focal deficits. Psych: oriented x 3 LABORATORY DATA, IMAGING STUDIES, MICROBIOLOGY: Please see below. DVT prophylaxis ordered?: HSQ ASSESSMENT AND PLAN: 74 year old male with PMH polycystic kidney disease s/p renal transplant, DM, Hypothyroidism and HTN presented to [facility] after a fall at home resulting in a L. hip dislocation. He underwent a reduction in the ED and was evaluated by orthopedic team. He has been receiving rehab in ARU while being managed for pain. Has been on oxycodone standing as well as PRN. Complains of severe pain with ambulation/physical therapy. 1. L. hip dislocation post fall - c/w PT and pain management. Had been seen by ortho. - There is a risk for a recurrence of dislocation, in that case, may need a prosthetic brace placement. - On tylenol, cymbalta and oxycodone. Cymbalta had been increased from home dose. 2. HTN - BP controlled on Enalapril. 3. DM - ISS with ACHS. 4. Polycystic kidney disease - s/p renal transplant on chronic prednisone and azathioprine. 5. Hypothyroidism - c/w synthroid 100 mcg daily home dose. 6. Urinary Retention - Monitor on flomax. - urine culture + klebsiella and was started on levaquin. 7. Normocytic anemia - No evidence of bleeding since admission to ARU. - Stable >8, do not need to transfuse at this time. - continue to monitor. HSQ are being held at this time. - anemia workup ordered along with tomorrow's labs. Consider occult stool study if continue to decline. VS, I&O, 24H, Fishbone Vital Signs/I&O Vital Signs Date Time Temp Pulse Resp B/P (MAP) Pulse Ox O2 Delivery O2 Flow Rate FiO2 04/10/20 08:30 18 04/10/20 08:00 135/72 04/10/20 06:26 96.5 59 100 Room Air I&O- Last 24 Hours up to 6 AM 04/10/20 06:00 Intake Total 1070 ml Output Total 1600 ml Balance -530 ml Laboratory Data 24H LABS Laboratory Tests 2 04/09/20 15:23: Immature Granulocyte % (Auto) 1.1, Neutrophils (%) (Auto) 91.2H, Lymphocytes (%) (Auto) 5.0L, Monocytes (%) (Auto) 2.6, Eosinophils (%) (Auto) 0.0, Basophils (%) (Auto) 0.1, Neutrophils # (Auto) 8.3, Lymphocytes # (Auto) 0.5L, Monocytes # (Auto) 0.2, Eosinophils # (Auto) 0.0, Basophils # (Auto) 0.0, Nucleated Red Blood Cells % (auto) 0.0 04/09/20 16:40: Bedside Glucose (Misc Panel) 233H 04/09/20 19:48: Bedside Glucose (Misc Panel) 206H 04/10/20 05:42: Bedside Glucose (Misc Panel) 142H 04/10/20 06:38: Immature Granulocyte % (Auto) 1.0, Neutrophils (%) (Auto) 79.9H, Lymphocytes (%) (Auto) 12.7L, Monocytes (%) (Auto) 6.2H, Eosinophils (%) (Auto) 0.0, Basophils (%) (Auto) 0.2, Neutrophils # (Auto) 4.1, Lymphocytes # (Auto) 0.7L, Monocytes # (Auto) 0.3, Eosinophils # (Auto) 0.0, Basophils # (Auto) 0.0, Nucleated Red Blood Cells % (auto) 0.0 04/10/20 11:33: Bedside Glucose (Misc Panel) 119H CBC/BMP Laboratory Tests 04/09/20 15:23 04/10/20 06:38 Microbiology Microbiology 04/07/20 Urine Culture - Preliminary, Resulted Klebsiella Pneumoniae CARMEN KAUFMAN MD Apr 10, 2020 13:24
[2020-04-10 14:00] VITALS: BP 95/53
[2020-04-10 20:58] VITALS: BP 108/65
[2020-04-10] MEDS: **NOTE PATIENT COMMENT** MISC XX SCH (21:31)
[2020-04-11] MEDS: LevoFLOXacin 750 MG TABLET PO SCH (05:22)
[2020-04-11] MEDS: LEVOTHYROXINE 100MCG TABLET (0.1MG) PO SCH (05:22)
[2020-04-11 05:38] VITALS: BP 100/65
[2020-04-11 07:28] LABS: BASO % 0.2 % (0.0-1.0); EOS % 0.2 % (0.0-3.0); HEMATOCRIT 24.9 % (42.0-52.0); HEMOGLOBIN 8.3 g/dl (13.5-17.5); LYMPH # 0.6 10^3/uL (1.5-5.0); MEAN CORPUSCULAR HEMOGLOBIN 29.5 pg (27.0-33.0); MEAN CORPUSCULAR HGB CONC 33.3 g/dl (32.0-36.5); MEAN CORPUSCULAR VOLUME 88.6 fl (80.0-96.0); MONO # 0.3 10^3/uL (0.0-0.8); MONO % 5.7 % (0.0-5.0); NEUTROPHILS % 82.9 % (36.0-66.0); PLATELET COUNT, AUTOMATED 191 10^3/uL (150-450); RED BLOOD COUNT 2.81 10^6/uL (4.30-6.10)
[2020-04-11 08:06] LABS: PERCENT SATURATION 42.9 % (19.7-50.0)
[2020-04-11] MEDS: ASPIRIN 81 MG ENTERIC TAB PO SCH (08:14)
[2020-04-11] MEDS: LIDOCAINE 5% (LIDODERM) PATCH TD SCH (08:14)
[2020-04-11] MEDS: LACTOBACILLUS ACIDOPHILUS CAP (BACID) PO SCH ×3 (08:14→20:15)
[2020-04-11] MEDS: HumaLOG INSULIN (NovoLOG) PER UNIT SC SCH ×4 (08:14→20:16)
[2020-04-11] MEDS: BICITRA 30ML SOLN UDC PO SCH ×2 (08:14→20:16)
[2020-04-11] MEDS: azaTHIOprine 50 MG TAB (J7500) PO SCH (08:15)
[2020-04-11] MEDS: gemfibroziL 600 MG TAB PO SCH ×2 (08:15→16:47)
[2020-04-11] MEDS: predniSONE 20 MG TAB PO SCH (08:15)
[2020-04-11] MEDS: PANTOPRAZOLE 40MG TAB (PROTONIX) PO SCH (08:15)
[2020-04-11] MEDS: DULoxetine 30 MG CAP (CYMBALTA) PO SCH (08:15)
[2020-04-11] MEDS: TAMSULOSIN 0.4 MG CAP PO SCH (08:15)
[2020-04-11] MEDS: oxyCODONE 5MG TAB PO SCH (08:16)
[2020-04-11] MEDS: ACETAMINOPHEN 500 MG TAB PO SCH ×3 (08:16→20:16)
[2020-04-11] MEDS: TIMOLOL MALEATE 0.5% OPHTH SOLN 5 ML OS SCH ×2 (08:17→20:16)
[2020-04-11] MEDS: ENALAPRIL MALEATE 5 MG TAB PO SCH (08:17)
[2020-04-11] MEDS: BRIMONIDINE 0.1% OPHTH SOLN 5 ML OS SCH ×2 (08:17→20:16)
[2020-04-11] MEDS: LOPERAMIDE 2 MG CAPLET PO PRN (10:18)
[2020-04-11 14:00] VITALS: BP 111/64
[2020-04-11 20:00] VITALS: BP 126/83
[2020-04-11] MEDS: **NOTE PATIENT COMMENT** MISC XX SCH (20:17)
[2020-04-12 06:00] VITALS: BP 132/77
[2020-04-12] MEDS: LEVOTHYROXINE 100MCG TABLET (0.1MG) PO SCH (06:02)
[2020-04-12] MEDS: LevoFLOXacin 750 MG TABLET PO SCH (06:03)
[2020-04-12 06:11] LABS: BASO % 0.2 % (0.0-1.0); HEMATOCRIT 25.8 % (42.0-52.0); HEMOGLOBIN 8.3 g/dl (13.5-17.5); LYMPH # 0.7 10^3/uL (1.5-5.0); MEAN CORPUSCULAR HEMOGLOBIN 28.5 pg (27.0-33.0); MEAN CORPUSCULAR HGB CONC 32.2 g/dl (32.0-36.5); MEAN CORPUSCULAR VOLUME 88.7 fl (80.0-96.0); MONO # 0.3 10^3/uL (0.0-0.8); MONO % 7.2 % (0.0-5.0); NEUTROPHILS # 3.5 10^3/uL (1.5-8.5); NEUTROPHILS % 76.7 % (36.0-66.0); PLATELET COUNT, AUTOMATED 193 10^3/uL (150-450); RED BLOOD COUNT 2.91 10^6/uL (4.30-6.10); WHITE BLOOD COUNT 4.6 10^3/uL (4.0-10.0)
[2020-04-12 06:35] LABS: BLOOD UREA NITROGEN 20 MG/DL (7-18); CALCIUM LEVEL 7.8 MG/DL (8.8-10.2); CARBON DIOXIDE LEVEL 29 MEQ/L (21-32); CHLORIDE LEVEL 101 MEQ/L (98-107); CREATININE FOR GFR 1.01 MG/DL (0.70-1.30); GLOMERULAR FILTRATION RATE > 60.0 (>42); GLUCOSE, FASTING 102 MG/DL (70-100); POTASSIUM SERUM 3.5 MEQ/L (3.5-5.1); SODIUM LEVEL 135 MEQ/L (136-145)
[2020-04-12] MEDS: HumaLOG INSULIN (NovoLOG) PER UNIT SC SCH ×4 (07:30→21:00)
[2020-04-12] MEDS: LIDOCAINE 5% (LIDODERM) PATCH TD SCH (08:19)
[2020-04-12] MEDS: TIMOLOL MALEATE 0.5% OPHTH SOLN 5 ML OS SCH ×2 (08:20→21:04)
[2020-04-12] MEDS: ASPIRIN 81 MG ENTERIC TAB PO SCH (08:20)
[2020-04-12] MEDS: ENALAPRIL MALEATE 5 MG TAB PO SCH (08:20)
[2020-04-12] MEDS: LACTOBACILLUS ACIDOPHILUS CAP (BACID) PO SCH ×3 (08:20→21:03)
[2020-04-12] MEDS: ACETAMINOPHEN 500 MG TAB PO SCH ×3 (08:21→21:03)
[2020-04-12] MEDS: TAMSULOSIN 0.4 MG CAP PO SCH (08:22)
[2020-04-12] MEDS: PANTOPRAZOLE 40MG TAB (PROTONIX) PO SCH (08:22)
[2020-04-12] MEDS: gemfibroziL 600 MG TAB PO SCH ×2 (08:22→17:32)
[2020-04-12] MEDS: azaTHIOprine 50 MG TAB (J7500) PO SCH (08:22)
[2020-04-12] MEDS: BICITRA 30ML SOLN UDC PO SCH ×2 (08:22→21:03)
[2020-04-12] MEDS: DULoxetine 30 MG CAP (CYMBALTA) PO SCH (08:22)
[2020-04-12] MEDS: oxyCODONE 5MG TAB PO SCH (08:23)
[2020-04-12] MEDS: BRIMONIDINE 0.1% OPHTH SOLN 5 ML OS SCH ×2 (08:24→21:04)
--- NOTE | 2020-04-12 10:23 | IPNPDOC ---
PM&R Progress Note DATE OF SERVICE: Apr 12, 2020 Registered Nurse Renal Progress Note Subjective: Patient reporting he did not want to do therapy this morning out of concern he dislocated his right hip and was reassured to know that repeat imaging was n eagtive. REVIEW OF SYSTEMS: The following is a completed review of systems and has been reviewed. Review of systems otherwise unremarkable. PAIN: Patient self reports right groin pain (improving) EYES: No recent vision changes EARS, NOSE, & THROAT: No throat pain, or dysphagia, or rhinorrhea CARDIOVASCULAR: Denies chest pain or palpitations PULMONARY: Denies shortness of breath GASTROINTESTINAL: Denies constipation/diarrhea GENITOURINARY: denies dysuria, +retention (improving) MUSCULOSKELETAL: LE weakness NEUROLOGICAL:no tremor or paresthesias HEMATOLOGICAL: + easy bruising SKIN: scattered ecchymosis PSYCHIATRIC: Unremarkable All other review of systems found to be negative. PHYSICAL EXAMINATION: VITAL SIGNS: Please see below. GENERAL: Pleasant and cooperative. No acute distress. HEENT: PERRL. Extraocular movements intact. Clear conjunctiva CARDIOVASCULAR: Regular rate and rhythm. No murmurs, rubs, or gallops LUNGS: Clear to auscultation bilaterally. No wheezes. No rhonchi ABDOMEN: Soft, nontender, nondistended. Positive bowel sounds. Normal active bowel sounds NEUROLOGICAL: Alert and oriented times three. Cranial nerves II through XII grossly intact. Sensation diminished to light touch and pinprick bilat LE in stocking pattern EXTREMITIES: 5-\5 strength bilateral upper extremities. 3+\5 strength right hip flexion and knee extension, 2/5 ankle DF and 0/5 EHL 3+\5 strength left hip flxeion and knee extension, 2/5 ankle DF and 0/5 EHL (exam limited due to pain) +groin pain with internal rotation of right leg SKIN: left heel with blanchable erythema, right midfoot with blanchable erythema LABORATORY DATA: Please see below. ASSESSMENT:74-year-old M with past medical history of bilat THR who presents status post fall with left hip dislocation PLAN: 1.Rehab- PT/OT advance gait and ADLs, maintain posterior hip precautions and use abduction pillow, heel floats, ambulating short distances with assistance 2. Cardiac- hx of HTN c/u Enalapril and ASA -HLD- lopid 3. 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 Resp- encourage incentive spirometry, monitor for infection 4. Ortho s/p left hip dislocation, ortho consulted -right hip pain, CT negative for fracture-improving with oral pain meds -repeat right hip x-ray today negative for dislocation/new fracture, patient encouraged to continue participating in therapy 5. Endo- hx of hypothyroidism c/u Synthroid, dm c/u ISS 6. renal- s/p transplant c/u prednisone and imuran- watch for Luther while on ANKITA-I- stable -citric-acid/sodium chloride 7. pain- tylenol and cymbalta (increased to 90mg daily) , oxycodone prn and 10mg q am in advance of therapy 8. gi ppx- protonix 9. dvt ppx- heparin and teds 10. Hyponatremia- resolved 11. - urinary retention improving since starting Levaquin and Flomax 12. Dispo- 04-14-20 to STR progressing slowly towards goals and will need furterh rehab Allergies Coded Allergies: No Known Allergies (Unverified , 04/25/18) Vital Signs Vital Signs Date Time Temp Pulse Resp B/P (MAP) Pulse Ox O2 Delivery O2 Flow Rate FiO2 04/12/20 08:53 18 04/12/20 08:23 Room Air 04/12/20 06:00 96.8 70 132/77 (95) 97 Laboratory Data CBC/BMP Laboratory Tests 04/12/20 05:56 Labs 24H Laboratory Tests 2 04/11/20 11:22: Bedside Glucose (Misc Panel) 143H 04/11/20 16:40: Bedside Glucose (Misc Panel) 209H 04/11/20 20:13: Bedside Glucose (Misc Panel) 126H 04/12/20 05:56: Immature Granulocyte % (Auto) 0.9, Neutrophils (%) (Auto) 76.7H, Lymphocytes (%) (Auto) 15.0L, Monocytes (%) (Auto) 7.2H, Eosinophils (%) (Auto) 0.0, Basophils (%) (Auto) 0.2, Neutrophils # (Auto) 3.5, Lymphocytes # (Auto) 0.7L, Monocytes # (Auto) 0.3, Eosinophils # (Auto) 0.0, Basophils # (Auto) 0.0, Nucleated Red Blood Cells % (auto) 0.0, Anion Gap 5L, Glomerular Filtration Rate > 60.0, Calcium Level 7.8L Microbiology Microbiology 04/07/20 Urine Culture - Final, Complete Klebsiella Pneumoniae Proteus Mirabilis Enterococcus Faecalis Current Medications Current Medications Current Medications Medications (Trade) Dose Ordered Sig/Elieser Route PRN Reason Start Time Stop Time Status Last Admin Dose Admin Acetaminophen (Tylenol Tab) 1,000 mg TID PO 03/30/20 16:00 04/12/20 08:21 Aspirin (Ecotrin) 81 mg DAILY PO 03/31/20 09:00 04/12/20 08:20 Azathioprine (Imuran) 150 mg DAILY PO 03/31/20 09:00 04/12/20 08:22 Bisacodyl (Dulcolax Tab) 5 mg DAILYPRN PRN PO CONSTIPATION 03/30/20 16:15 Brimonidine Tartrate (Alphagan P 0.1%) 1 drop BID OS 03/30/20 21:00 04/12/20 08:24 Citric Acid/ Sodium Citrate (Bicitra) 30 ml BID PO 03/30/20 21:00 04/12/20 08:22 Dextrose (Dextrose 50%) 25 ml ASDIRECTED PRN IV SEE LABEL COMMENTS 03/30/20 16:15 Docusate Sodium (Colace) 100 mg BID PO 03/30/20 21:00 04/08/20 13:34 DC 04/03/20 08:18 Duloxetine HCl (Cymbalta) 60 mg DAILY PO 03/31/20 09:00 04/01/20 11:23 DC 04/01/20 07:36 Duloxetine HCl (Cymbalta) 90 mg DAILY PO 04/02/20 09:00 04/12/20 08:22 Enalapril Maleate (Vasotec) 2.5 mg DAILY PO 03/31/20 09:00 04/12/20 08:20 Gemfibrozil (Lopid) 600 mg BID@0730,1730 PO 03/30/20 17:30 04/12/20 08:22 Glucagon (Glucagon) 1 mg ASDIRECTED PRN SC SEE LABEL COMMENTS 03/30/20 16:15 Glucose (Glucose) 16 GM ASDIRECTED PRN PO SEE LABEL COMMENTS 03/30/20 16:15 Heparin Sodium (Porcine) (Heparin) 5,000 units Q12H SC 03/30/20 21:00 04/10/20 13:22 DC 04/10/20 07:57 Insulin Human Lispro (HumaLOG INSULIN) SEE PROTOCOL TABLE AC SC 03/30/20 17:30 04/11/20 16:47 Insulin Human Lispro (HumaLOG INSULIN) SEE PROTOCOL TABLE QHS SC 03/30/20 21:00 04/03/20 20:45 Lactobacillus Acidophilus (Bacid) 1 ea TID PO 04/08/20 09:00 04/12/20 08:20 Levofloxacin (Levaquin) 750 mg DAILY@06 PO 04/08/20 06:00 04/14/20 06:01 04/12/20 06:03 Levothyroxine Sodium (Synthroid) 100 mcg DAILY@06 PO 03/31/20 06:00 04/12/20 06:02 Lidocaine (Lidoderm Patch) 1 patch DAILY TD 03/31/20 09:00 04/12/20 08:19 Loperamide HCl (Imodium) 4 mg TID PO 04/08/20 21:00 04/08/20 13:34 DC Loperamide HCl (Imodium) 4 mg TID PRN PO loose stools 04/08/20 21:00 04/11/20 10:18 Non-Formulary Medication ( See Comment Field Below ) REMOVE LIDODERM PATCH DAILY@21 XX 03/31/20 21:00 04/11/20 20:17 Oxycodone HCl (Roxicodone, Oxyir) 5 mg Q4HP PRN PO PAIN 03/30/20 16:15 04/07/20 15:04 Oxycodone HCl (Roxicodone, Oxyir) 10 mg DAILY PO 04/02/20 09:00 04/12/20 08:23 Pantoprazole Sodium (Protonix) 40 mg DAILY PO 03/30/20 09:00 04/12/20 08:22 Prednisone (Deltasone) 20 mg Q48H PO 04/01/20 09:00 04/11/20 08:15 Ramelteon (Rozerem) 8 mg QHS PRN PO INSOMNIA 04/04/20 21:45 04/04/20 22:28 Senna (Senokot) 1 tab QHS PO 03/30/20 21:00 04/08/20 13:34 DC 03/30/20 21:50 Tamsulosin HCl (Flomax) 0.4 mg DAILY PO 04/07/20 11:45 04/12/20 08:22 Timolol Maleate (Timoptic 0.5% Ophth Disha) 1 drop BID OS 03/30/20 21:00 04/12/20 08:20 TAQUERIA GIBBS MD Apr 12, 2020 10:23
--- NOTE | 2020-04-12 10:56 | REP ---
Clinical: Pain. Technique: AP and frog lateral views of the right hip. Comparison: 03/29/2020 Findings: Evidence for prior hip replacement. No obvious acute fracture or dislocation. Findings appear relatively stable compared to prior exam. Impression: No obvious acute fracture or dislocation. Electronically Signed by Jerson Haywood MD 04/12/2020 10:47 A
--- NOTE | 2020-04-12 10:58 | IPN ---
DATE: 04/11/2020 He is a 75-year-old male on the acute rehabilitation unit having had a left hip dislocation after a fall. No surgical intervention was needed. He does have some normocytic anemia. Heparin (HSQ) is being held. Denies any hematochezia or melena. His hemoglobin/hematocrit (H/H) today is up slightly to 8.3/24.9. His iron is 88, total iron binding capacity slightly low at 205. His transferrin percent saturation is 42.9. Ferritin is elevated at 1336. Vitamin B12 and folate are not back yet. SUBJECTIVE: The patient is still complaining of right hip pain. He states that when he goes to move he is having severe right anterior hip pain for the past three days. He states that if he lies still, it does not bother him. PHYSICAL EXAMINATION: Temperature 97.3, pulse 76, respirations 18, blood pressure 126/83, pulse oximetry 98% on room air. The patient is alert and oriented. Pupils equal and react to light. Extraocular movements intact. Cornea and sclerae is clear. Conjunctivae is normal. No facial asymmetry. Pharynx, tongue and gums pink and moist. Tongue is midline. Neck is supple, without lymphadenopathy. No thyromegaly. No goiter. Chest clear to auscultation. Without wheeze or retraction. Heart is regular. Abdomen benign. Bowel sounds positive. /Rectal: Not done. Skin shows diffuse bruising throughout. Very thin skin. No significant swelling over bilateral hips or joints. Neurologic: Cranial nerves III-XII grossly intact. ASSESSMENT AND PLAN: 1. Left hip dislocation post fall. Continue with physical therapy, pain management. 2. Continued pain in the right anterior hip. Request orthopedic consult. Continue Tylenol, Cymbalta, oxycodone. 3. Hypertension. Blood pressure controlled. 4. Diabetes. On insulin sliding scale before meals and at bedtime. 5. Polycystic kidney disease. Status post renal transplant on chronic prednisone and azathioprine. 6. Hypothyroidism. Continue on Synthroid. 7. Urinary retention. Continues on Flomax. He is on Levaquin for a positive Klebsiella in his urine. 8. Normocytic anemia. H/H up at 8.3/24.9. Continue workup.
[2020-04-12 11:00] LABS: FOLATE 4.6 NG/ML (>5.4)
[2020-04-12] MEDS: oxyCODONE 5MG TAB PO PRN ×3 (12:17→21:03)
[2020-04-12 14:19] VITALS: BP 90/50
[2020-04-12] MEDS ORDERED: NS 1,000 ML IV ONE (15:00)
[2020-04-12 15:54] VITALS: BP 122/58
[2020-04-12 20:04] VITALS: BP 98/60
[2020-04-12] MEDS: **NOTE PATIENT COMMENT** MISC XX SCH (21:04)
[2020-04-13] MEDS: oxyCODONE 5MG TAB PO PRN ×2 (01:12→16:24)
[2020-04-13] MEDS: LEVOTHYROXINE 100MCG TABLET (0.1MG) PO SCH (05:22)
[2020-04-13] MEDS: LevoFLOXacin 750 MG TABLET PO SCH (05:22)
[2020-04-13 06:00] VITALS: BP 124/58
[2020-04-13] MEDS: HumaLOG INSULIN (NovoLOG) PER UNIT SC SCH ×4 (07:30→21:00)
[2020-04-13] MEDS: gemfibroziL 600 MG TAB PO SCH ×2 (08:29→16:24)
[2020-04-13] MEDS: LACTOBACILLUS ACIDOPHILUS CAP (BACID) PO SCH ×3 (08:29→22:15)
[2020-04-13] MEDS: BICITRA 30ML SOLN UDC PO SCH ×2 (08:29→22:15)
[2020-04-13] MEDS: TAMSULOSIN 0.4 MG CAP PO SCH (08:29)
[2020-04-13] MEDS: ASPIRIN 81 MG ENTERIC TAB PO SCH (08:29)
[2020-04-13] MEDS: PANTOPRAZOLE 40MG TAB (PROTONIX) PO SCH (08:30)
[2020-04-13] MEDS: predniSONE 20 MG TAB PO SCH (08:30)
[2020-04-13] MEDS: DULoxetine 30 MG CAP (CYMBALTA) PO SCH (08:30)
[2020-04-13] MEDS: ENALAPRIL MALEATE 5 MG TAB PO SCH (08:30)
[2020-04-13] MEDS: oxyCODONE 5MG TAB PO SCH (08:31)
[2020-04-13] MEDS: azaTHIOprine 50 MG TAB (J7500) PO SCH (08:32)
[2020-04-13] MEDS: ACETAMINOPHEN 500 MG TAB PO SCH ×3 (08:32→22:15)
[2020-04-13] MEDS: LIDOCAINE 5% (LIDODERM) PATCH TD SCH (08:32)
[2020-04-13] MEDS: TIMOLOL MALEATE 0.5% OPHTH SOLN 5 ML OS SCH ×2 (08:32→22:15)
[2020-04-13] MEDS: BRIMONIDINE 0.1% OPHTH SOLN 5 ML OS SCH ×2 (08:33→22:15)
[2020-04-13 14:00] VITALS: BP 103/57
[2020-04-13 20:00] VITALS: BP 101/55
[2020-04-13] MEDS: **NOTE PATIENT COMMENT** MISC XX SCH (21:00)
[2020-04-14] MEDS: LEVOTHYROXINE 100MCG TABLET (0.1MG) PO SCH (05:33)
[2020-04-14] MEDS: LevoFLOXacin 750 MG TABLET PO SCH (05:33)
[2020-04-14 06:00] VITALS: BP 115/59
[2020-04-14] MEDS: HumaLOG INSULIN (NovoLOG) PER UNIT SC SCH ×4 (07:30→20:43)
[2020-04-14] MEDS: BICITRA 30ML SOLN UDC PO SCH ×2 (08:38→20:42)
[2020-04-14] MEDS: LIDOCAINE 5% (LIDODERM) PATCH TD SCH (08:38)
[2020-04-14] MEDS: gemfibroziL 600 MG TAB PO SCH ×2 (08:39→17:02)
[2020-04-14] MEDS: ENALAPRIL MALEATE 5 MG TAB PO SCH (08:39)
[2020-04-14] MEDS: oxyCODONE 5MG TAB PO SCH (08:39)
[2020-04-14] MEDS: azaTHIOprine 50 MG TAB (J7500) PO SCH (08:39)
[2020-04-14] MEDS: LACTOBACILLUS ACIDOPHILUS CAP (BACID) PO SCH ×3 (08:40→20:42)
[2020-04-14] MEDS: ACETAMINOPHEN 500 MG TAB PO SCH ×3 (08:40→20:43)
[2020-04-14] MEDS: ASPIRIN 81 MG ENTERIC TAB PO SCH (08:40)
[2020-04-14] MEDS: TAMSULOSIN 0.4 MG CAP PO SCH (08:40)
[2020-04-14] MEDS: PANTOPRAZOLE 40MG TAB (PROTONIX) PO SCH (08:41)
[2020-04-14] MEDS: DULoxetine 30 MG CAP (CYMBALTA) PO SCH (08:41)
[2020-04-14] MEDS: TIMOLOL MALEATE 0.5% OPHTH SOLN 5 ML OS SCH ×2 (08:41→20:43)
[2020-04-14] MEDS: BRIMONIDINE 0.1% OPHTH SOLN 5 ML OS SCH ×2 (08:41→20:43)
[2020-04-14 11:51] LABS: BASO % 0.1 % (0.0-1.0); EOS % 0.1 % (0.0-3.0); HEMATOCRIT 25.6 % (42.0-52.0); HEMOGLOBIN 8.2 g/dl (13.5-17.5); LYMPH # 0.8 10^3/uL (1.5-5.0); LYMPH % 10.4 % (24.0-44.0); MEAN CORPUSCULAR HEMOGLOBIN 28.9 pg (27.0-33.0); MEAN CORPUSCULAR VOLUME 90.1 fl (80.0-96.0); MONO # 0.5 10^3/uL (0.0-0.8); MONO % 5.9 % (0.0-5.0); NEUTROPHILS # 6.5 10^3/uL (1.5-8.5); NEUTROPHILS % 82.7 % (36.0-66.0); PLATELET COUNT, AUTOMATED 203 10^3/uL (150-450); RED BLOOD COUNT 2.84 10^6/uL (4.30-6.10); WHITE BLOOD COUNT 7.8 10^3/uL (4.0-10.0)
[2020-04-14 12:09] LABS: CALCIUM LEVEL 8.6 MG/DL (8.8-10.2); CREATININE FOR GFR 1.29 MG/DL (0.70-1.30); GLOMERULAR FILTRATION RATE 57.8 (>42); POTASSIUM SERUM 3.8 MEQ/L (3.5-5.1)
[2020-04-14] MEDS: oxyCODONE 5MG TAB PO PRN (13:02)
[2020-04-14 14:00] VITALS: BP_SYST 108; BP_SYST 122; BP_DIAS 57; BP_DIAS 60
[2020-04-14 20:30] VITALS: BP 129/65
[2020-04-14] MEDS: **NOTE PATIENT COMMENT** MISC XX SCH (20:44)
[2020-04-15] MEDS: LevoFLOXacin 750 MG TABLET PO SCH (05:35)
[2020-04-15] MEDS: LEVOTHYROXINE 100MCG TABLET (0.1MG) PO SCH (05:35)
[2020-04-15 06:00] VITALS: BP 125/61
[2020-04-15] MEDS: HumaLOG INSULIN (NovoLOG) PER UNIT SC SCH ×4 (07:30→21:00)
[2020-04-15] MEDS: BICITRA 30ML SOLN UDC PO SCH ×2 (08:51→21:19)
[2020-04-15] MEDS: gemfibroziL 600 MG TAB PO SCH ×2 (08:52→16:52)
[2020-04-15] MEDS: azaTHIOprine 50 MG TAB (J7500) PO SCH (08:52)
[2020-04-15] MEDS: ACETAMINOPHEN 500 MG TAB PO SCH ×3 (08:52→21:19)
[2020-04-15] MEDS: DULoxetine 30 MG CAP (CYMBALTA) PO SCH (08:52)
[2020-04-15] MEDS: PANTOPRAZOLE 40MG TAB (PROTONIX) PO SCH (08:52)
[2020-04-15] MEDS: oxyCODONE 5MG TAB PO SCH (08:53)
[2020-04-15] MEDS: ASPIRIN 81 MG ENTERIC TAB PO SCH (08:53)
[2020-04-15] MEDS: TAMSULOSIN 0.4 MG CAP PO SCH (08:53)
[2020-04-15] MEDS: predniSONE 20 MG TAB PO SCH (08:53)
[2020-04-15] MEDS: ENALAPRIL MALEATE 5 MG TAB PO SCH (08:54)
[2020-04-15] MEDS: TIMOLOL MALEATE 0.5% OPHTH SOLN 5 ML OS SCH ×2 (08:54→21:20)
[2020-04-15] MEDS: LIDOCAINE 5% (LIDODERM) PATCH TD SCH (08:54)
[2020-04-15] MEDS: LACTOBACILLUS ACIDOPHILUS CAP (BACID) PO SCH ×3 (08:54→21:00)
[2020-04-15] MEDS: BRIMONIDINE 0.1% OPHTH SOLN 5 ML OS SCH ×2 (08:54→21:20)
--- NOTE | 2020-04-15 10:38 | IPNPDOC ---
PM&R Progress Note DATE OF SERVICE: Apr 13, [address] Progress Note Subjective: Patient reporting he wants an MRI of his back because he thinks he is not standing up straight and wants to get to the bottom of his weakness. He denies shooting pain down his leg or saddle region anesthesia, however does say he has had bowel incontinence for several years. REVIEW OF SYSTEMS: The following is a completed review of systems and has been reviewed. Review of systems otherwise unremarkable. PAIN: Patient self reports right groin pain (improving) EYES: No recent vision changes EARS, NOSE, & THROAT: No throat pain, or dysphagia, or rhinorrhea CARDIOVASCULAR: Denies chest pain or palpitations PULMONARY: Denies shortness of breath GASTROINTESTINAL: Denies constipation/diarrhea GENITOURINARY: denies dysuria, +retention (improving) MUSCULOSKELETAL: LE weakness NEUROLOGICAL:no tremor or paresthesias HEMATOLOGICAL: + easy bruising SKIN: scattered ecchymosis PSYCHIATRIC: Unremarkable All other review of systems found to be negative. PHYSICAL EXAMINATION: VITAL SIGNS: Please see below. GENERAL: Pleasant and cooperative. No acute distress. HEENT: PERRL. Extraocular movements intact. Clear conjunctiva CARDIOVASCULAR: Regular rate and rhythm. No murmurs, rubs, or gallops LUNGS: Clear to auscultation bilaterally. No wheezes. No rhonchi ABDOMEN: Soft, nontender, nondistended. Positive bowel sounds. Normal active bowel sounds NEUROLOGICAL: Alert and oriented times three. Cranial nerves II through XII grossly intact. Sensation diminished to light touch and pinprick bilat LE in stocking pattern EXTREMITIES: 5-\5 strength bilateral upper extremities. 3+\5 strength right hip flexion and knee extension, 2/5 ankle DF and 0/5 EHL 3+\5 strength left hip flxeion and knee extension, 2/5 ankle DF and 0/5 EHL (exam limited due to pain) +groin pain with internal rotation of right leg SKIN: left heel with stage 2 ulcer and right heel with unstagebale ulcer LABORATORY DATA: Please see below. ASSESSMENT:74-year-old M with past medical history of bilat THR who presents status post fall with left hip dislocation PLAN: 1.Rehab- PT/OT advance gait and ADLs, maintain posterior hip precautions and use abduction pillow, heel floats, ambulating short distances with assistance 2. Cardiac- hx of HTN c/u Enalapril and ASA -HLD- lopid 3. 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 Resp- encourage incentive spirometry, monitor for infection 4. Ortho s/p left hip dislocation, ortho consulted -right hip pain, CT negative for fracture-improving with oral pain meds -repeat right hip x-ray today negative for dislocation/new fracture, patient encouraged to continue participating in therapy -will defer further back imaging at this time as patient not reporting new bowel symptoms and his urinary retention may be due to UTI which is responding slowly to antibiotics and flomax, patient also not noted to have new weakness on exam- recommend ortho follow-up as outpatient for further management 5. Endo- hx of hypothyroidism c/u Synthroid, dm c/u ISS 6. renal- s/p transplant c/u prednisone and imuran- watch for Luther while on A CE-I- stable -citric-acid/sodium chloride 7. pain- tylenol and cymbalta (increased to 90mg daily) , oxycodone prn and 10mg q am in advance of therapy 8. gi ppx- protonix 9. dvt ppx- heparin and teds 10. Hyponatremia- resolved 11. - urinary retention improving since starting Levaquin and Flomax, however patient still requiring catheterization, c/u treatment 12. Skin- patient has developed worsening ulcers on his heels despite preventively offloading them with heelfloat boots and optifoam, will suspend calves on pillow for optimal pressure relief 12. Dispo- 04-14-20 to STR progressing slowly towards goals and will need further rehab Allergies Coded Allergies: No Known Allergies (Unverified , 04/25/18) Vital Signs Vital Signs Date Time Temp Pulse Resp B/P (MAP) Pulse Ox O2 Delivery O2 Flow Rate FiO2 04/15/20 08:54 125/61 04/15/20 08:53 16 04/15/20 06:00 98.2 75 99 Room Air Laboratory Data CBC/BMP Laboratory Tests 04/14/20 11:29 Labs 24H Laboratory Tests 2 04/14/20 11:29: Immature Granulocyte % (Auto) 0.8, Neutrophils (%) (Auto) 82.7H, Lymphocytes (%) (Auto) 10.4L, Monocytes (%) (Auto) 5.9H, Eosinophils (%) (Auto) 0.1, Basophils (%) (Auto) 0.1, Neutrophils # (Auto) 6.5, Lymphocytes # (Auto) 0.8L, Monocytes # (Auto) 0.5, Eosinophils # (Auto) 0.0, Basophils # (Auto) 0.0, Nucleated Red Blood Cells % (auto) 0.0, Anion Gap 7L, Glomerular Filtration Rate 57.8, Calcium Level 8.6L 04/14/20 11:35: Bedside Glucose (Misc Panel) 124H 04/14/20 16:47: Bedside Glucose (Misc Panel) 88 04/14/20 20:41: Bedside Glucose (Misc Panel) 135H 04/15/20 06:48: Bedside Glucose (Misc Panel) 96 04/15/20 08:50: Microbiology Microbiology 04/07/20 Urine Culture - Final, Complete Klebsiella Pneumoniae Proteus Mirabilis Enterococcus Faecalis Current Medications Current Medications Current Medications Medications (Trade) Dose Ordered Sig/Elieser Route PRN Reason Start Time Stop Time Status Last Admin Dose Admin Acetaminophen (Tylenol Tab) 1,000 mg TID PO 03/30/20 16:00 04/15/20 08:52 Aspirin (Ecotrin) 81 mg DAILY PO 03/31/20 09:00 04/15/20 08:53 Azathioprine (Imuran) 150 mg DAILY PO 03/31/20 09:00 04/15/20 08:52 Bisacodyl (Dulcolax Tab) 5 mg DAILYPRN PRN PO CONSTIPATION 03/30/20 16:15 Brimonidine Tartrate (Alphagan P 0.1%) 1 drop BID OS 03/30/20 21:00 04/15/20 08:54 Citric Acid/ Sodium Citrate (Bicitra) 30 ml BID PO 03/30/20 21:00 04/15/20 08:51 Dextrose (Dextrose 50%) 25 ml ASDIRECTED PRN IV SEE LABEL COMMENTS 03/30/20 16:15 Docusate Sodium (Colace) 100 mg BID PO 03/30/20 21:00 04/08/20 13:34 DC 04/03/20 08:18 Duloxetine HCl (Cymbalta) 60 mg DAILY PO 03/31/20 09:00 04/01/20 11:23 DC 04/01/20 07:36 Duloxetine HCl (Cymbalta) 90 mg DAILY PO 04/02/20 09:00 04/15/20 08:52 Enalapril Maleate (Vasotec) 2.5 mg DAILY PO 03/31/20 09:00 04/15/20 08:54 Gemfibrozil (Lopid) 600 mg BID@0730,1730 PO 03/30/20 17:30 04/15/20 08:52 Glucagon (Glucagon) 1 mg ASDIRECTED PRN SC SEE LABEL COMMENTS 03/30/20 16:15 Glucose (Glucose) 16 GM ASDIRECTED PRN PO SEE LABEL COMMENTS 03/30/20 16:15 Heparin Sodium (Porcine) (Heparin) 5,000 units Q12H SC 03/30/20 21:00 04/10/20 13:22 DC 04/10/20 07:57 Insulin Human Lispro (HumaLOG INSULIN) SEE PROTOCOL TABLE AC SC 03/30/20 17:30 04/14/20 12:20 Insulin Human Lispro (HumaLOG INSULIN) SEE PROTOCOL TABLE QHS SC 03/30/20 21:00 04/03/20 20:45 Lactobacillus Acidophilus (Bacid) 1 ea TID PO 04/08/20 09:00 04/15/20 08:54 Levofloxacin (Levaquin) 750 mg DAILY@06 PO 04/08/20 06:00 04/17/20 06:01 04/15/20 05:35 Levothyroxine Sodium (Synthroid) 100 mcg DAILY@06 PO 03/31/20 06:00 04/15/20 05:35 Lidocaine (Lidoderm Patch) 1 patch DAILY TD 03/31/20 09:00 04/15/20 08:54 Loperamide HCl (Imodium) 4 mg TID PO 04/08/20 21:00 04/08/20 13:34 DC Loperamide HCl (Imodium) 4 mg TID PRN PO loose stools 04/08/20 21:00 04/11/20 10:18 Non-Formulary Medication ( See Comment Field Below ) REMOVE LIDODERM PATCH DAILY@21 XX 03/31/20 21:00 04/14/20 20:44 Oxycodone HCl (Roxicodone, Oxyir) 5 mg Q4HP PRN PO PAIN 03/30/20 16:15 04/14/20 13:02 Oxycodone HCl (Roxicodone, Oxyir) 10 mg DAILY PO 04/02/20 09:00 04/15/20 08:53 Pantoprazole Sodium (Protonix) 40 mg DAILY PO 03/30/20 09:00 04/15/20 08:52 Prednisone (Deltasone) 20 mg Q48H PO 04/01/20 09:00 04/15/20 08:53 Ramelteon (Rozerem) 8 mg QHS PRN PO INSOMNIA 04/04/20 21:45 04/04/20 22:28 Senna (Senokot) 1 tab QHS PO 03/30/20 21:00 04/08/20 13:34 DC 03/30/20 21:50 Tamsulosin HCl (Flomax) 0.4 mg DAILY PO 04/07/20 11:45 04/15/20 08:53 Timolol Maleate (Timoptic 0.5% Ophth Disha) 1 drop BID OS 03/30/20 21:00 04/15/20 08:54 TAQUERIA GIBBS MD Apr 15, 2020 10:38
--- NOTE | 2020-04-15 10:41 | IPNPDOC ---
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 He denies fevers or chills and says he has no back paint today, but does have some right groin pain. REVIEW OF SYSTEMS: The following is a completed review of systems and has been reviewed. Review of systems otherwise unremarkable. PAIN: Patient self reports right groin pain (improving) EYES: No recent vision changes EARS, NOSE, & THROAT: No throat pain, or dysphagia, or rhinorrhea CARDIOVASCULAR: Denies chest pain or palpitations PULMONARY: Denies shortness of breath GASTROINTESTINAL: Denies constipation/diarrhea GENITOURINARY: denies dysuria, +retention (improving) MUSCULOSKELETAL: LE weakness NEUROLOGICAL:no tremor or paresthesias HEMATOLOGICAL: + easy bruising SKIN: scattered ecchymosis PSYCHIATRIC: Unremarkable All other review of systems found to be negative. PHYSICAL EXAMINATION: VITAL SIGNS: Please see below. GENERAL: Pleasant and cooperative. No acute distress. HEENT: PERRL. Extraocular movements intact. Clear conjunctiva CARDIOVASCULAR: Regular rate and rhythm. No murmurs, rubs, or gallops LUNGS: Clear to auscultation bilaterally. No wheezes. No rhonchi ABDOMEN: Soft, nontender, nondistended. Positive bowel sounds. Normal active bowel sounds NEUROLOGICAL: Alert and oriented times three. Cranial nerves II through XII grossly intact. Sensation diminished to light touch and pinprick bilat LE in stocking pattern EXTREMITIES: 5-\5 strength bilateral upper extremities. 3+\5 strength right hip flexion and knee extension, 2/5 ankle DF and 0/5 EHL 3+\5 strength left hip flxeion and knee extension, 2/5 ankle DF and 0/5 EHL (exam limited due to pain) +groin pain with internal rotation of right leg SKIN: left heel with stage 2 ulcer and right heel with unstagebale ulcer LABORATORY DATA: Please see below. ASSESSMENT:74-year-old M with past medical history of bilat THR who presents status post fall with left hip dislocation PLAN: 1.Rehab- PT/OT advance gait and ADLs, maintain posterior hip precautions and use abduction pillow, heel floats, ambulating short distances with assistance 2. Cardiac- hx of HTN c/u Enalapril and ASA -HLD- lopid 3. 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 Resp- encourage incentive spirometry, monitor for infection 4. Ortho s/p left hip dislocation, ortho consulted -right hip pain, CT negative for fracture-improving with oral pain meds -repeat right hip x-ray today negative for dislocation/new fracture, patient encouraged to continue participating in therapy -will defer further back imaging at this time as patient not reporting new bowel symptoms and his urinary retention may be due to UTI which is responding slowly to antibiotics and flomax, patient also not noted to have new weakness on exam- recommend ortho follow-up as outpatient for further management 5. Endo- hx of hypothyroidism c/u Synthroid, dm c/u ISS 6. renal- s/p transplant c/u prednisone and imuran- watch for Luther while on ANKITA-I- stable -citric-acid/sodium chloride 7. pain- tylenol and cymbalta (increased to 90mg daily) , oxycodone prn and 10mg q am in advance of therapy 8. gi ppx- protonix 9. dvt ppx- heparin and teds 10. Hyponatremia- resolved 11. - urinary retention improving since starting Levaquin and Flomax, however patient still requiring catheterization, c/u treatment 12. Skin- patient has developed worsening ulcers on his heels despite preventively offloading them with heelfloat boots and optifoam, will suspend calves on pillow for optimal pressure relief 12. Dispo- 04-14-20 to STR progressing slowly towards goals and will need further rehab Allergies Coded Allergies: No Known Allergies (Unverified , 04/25/18) Vital Signs Vital Signs Date Time Temp Pulse Resp B/P (MAP) Pulse Ox O2 Delivery O2 Flow Rate FiO2 04/15/20 08:54 125/61 04/15/20 08:53 16 04/15/20 06:00 98.2 75 99 Room Air Laboratory Data CBC/BMP Laboratory Tests 04/14/20 11:29 Labs 24H Laboratory Tests 2 04/14/20 11:29: Immature Granulocyte % (Auto) 0.8, Neutrophils (%) (Auto) 82.7H, Lymphocytes (%) (Auto) 10.4L, Monocytes (%) (Auto) 5.9H, Eosinophils (%) (Auto) 0.1, Basophils (%) (Auto) 0.1, Neutrophils # (Auto) 6.5, Lymphocytes # (Auto) 0.8L, Monocytes # (Auto) 0.5, Eosinophils # (Auto) 0.0, Basophils # (Auto) 0.0, Nucleated Red Blood Cells % (auto) 0.0, Anion Gap 7L, Glomerular Filtration Rate 57.8, Calcium Level 8.6L 04/14/20 11:35: Bedside Glucose (Misc Panel) 124H 04/14/20 16:47: Bedside Glucose (Misc Panel) 88 04/14/20 20:41: Bedside Glucose (Misc Panel) 135H 04/15/20 06:48: Bedside Glucose (Misc Panel) 96 04/15/20 08:50: Coronavirus (COVID-19)(PCR) NEGATIVE Microbiology Microbiology 04/07/20 Urine Culture - Final, Complete Klebsiella Pneumoniae Proteus Mirabilis Enterococcus Faecalis Current Medications Current Medications Current Medications Medications (Trade) Dose Ordered Sig/Elieser Route PRN Reason Start Time Stop Time Status Last Admin Dose Admin Acetaminophen (Tylenol Tab) 1,000 mg TID PO 03/30/20 16:00 04/15/20 08:52 Aspirin (Ecotrin) 81 mg DAILY PO 03/31/20 09:00 04/15/20 08:53 Azathioprine (Imuran) 150 mg DAILY PO 03/31/20 09:00 04/15/20 08:52 Bisacodyl (Dulcolax Tab) 5 mg DAILYPRN PRN PO CONSTIPATION 03/30/20 16:15 Brimonidine Tartrate (Alphagan P 0.1%) 1 drop BID OS 03/30/20 21:00 04/15/20 08:54 Citric Acid/ Sodium Citrate (Bicitra) 30 ml BID PO 03/30/20 21:00 04/15/20 08:51 Dextrose (Dextrose 50%) 25 ml ASDIRECTED PRN IV SEE LABEL COMMENTS 03/30/20 16:15 Docusate Sodium (Colace) 100 mg BID PO 03/30/20 21:00 04/08/20 13:34 DC 04/03/20 08:18 Duloxetine HCl (Cymbalta) 60 mg DAILY PO 03/31/20 09:00 04/01/20 11:23 DC 04/01/20 07:36 Duloxetine HCl (Cymbalta) 90 mg DAILY PO 04/02/20 09:00 04/15/20 08:52 Enalapril Maleate (Vasotec) 2.5 mg DAILY PO 03/31/20 09:00 04/15/20 08:54 Gemfibrozil (Lopid) 600 mg BID@0730,1730 PO 03/30/20 17:30 04/15/20 08:52 Glucagon (Glucagon) 1 mg ASDIRECTED PRN SC SEE LABEL COMMENTS 03/30/20 16:15 Glucose (Glucose) 16 GM ASDIRECTED PRN PO SEE LABEL COMMENTS 03/30/20 16:15 Heparin Sodium (Porcine) (Heparin) 5,000 units Q12H SC 03/30/20 21:00 04/10/20 13:22 DC 04/10/20 07:57 Insulin Human Lispro (HumaLOG INSULIN) SEE PROTOCOL TABLE AC SC 03/30/20 17:30 04/14/20 12:20 Insulin Human Lispro (HumaLOG INSULIN) SEE PROTOCOL TABLE QHS SC 03/30/20 21:00 04/03/20 20:45 Lactobacillus Acidophilus (Bacid) 1 ea TID PO 04/08/20 09:00 04/15/20 08:54 Levofloxacin (Levaquin) 750 mg DAILY@06 PO 04/08/20 06:00 04/17/20 06:01 04/15/20 05:35 Levothyroxine Sodium (Synthroid) 100 mcg DAILY@06 PO 03/31/20 06:00 04/15/20 05:35 Lidocaine (Lidoderm Patch) 1 patch DAILY TD 03/31/20 09:00 04/15/20 08:54 Loperamide HCl (Imodium) 4 mg TID PO 04/08/20 21:00 04/08/20 13:34 DC Loperamide HCl (Imodium) 4 mg TID PRN PO loose stools 04/08/20 21:00 04/11/20 10:18 Non-Formulary Medication ( See Comment Field Below ) REMOVE LIDODERM PATCH DAILY@21 XX 03/31/20 21:00 04/14/20 20:44 Oxycodone HCl (Roxicodone, Oxyir) 5 mg Q4HP PRN PO PAIN 03/30/20 16:15 04/14/20 13:02 Oxycodone HCl (Roxicodone, Oxyir) 10 mg DAILY PO 04/02/20 09:00 04/15/20 08:53 Pantoprazole Sodium (Protonix) 40 mg DAILY PO 03/30/20 09:00 04/15/20 08:52 Prednisone (Deltasone) 20 mg Q48H PO 04/01/20 09:00 04/15/20 08:53 Ramelteon (Rozerem) 8 mg QHS PRN PO INSOMNIA 04/04/20 21:45 04/04/20 22:28 Senna (Senokot) 1 tab QHS PO 03/30/20 21:00 04/08/20 13:34 DC 03/30/20 21:50 Tamsulosin HCl (Flomax) 0.4 mg DAILY PO 04/07/20 11:45 04/15/20 08:53 Timolol Maleate (Timoptic 0.5% Ophth Disha) 1 drop BID OS 03/30/20 21:00 04/15/20 08:54 TAQUERIA GIBBS MD Apr 15, 2020 10:41
--- NOTE | 2020-04-15 10:53 | IPNPDOC ---
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 REVIEW OF SYSTEMS: The following is a completed review of systems and has been reviewed. Review of systems otherwise unremarkable. PAIN: Patient self reports right groin pain (improving) EYES: No recent vision changes EARS, NOSE, & THROAT: No throat pain, or dysphagia, or rhinorrhea CARDIOVASCULAR: Denies chest pain or palpitations PULMONARY: Denies shortness of breath GASTROINTESTINAL: Denies constipation/diarrhea GENITOURINARY: denies dysuria, +retention (improving) MUSCULOSKELETAL: LE weakness NEUROLOGICAL:no tremor or paresthesias HEMATOLOGICAL: + easy bruising SKIN: scattered ecchymosis PSYCHIATRIC: Unremarkable All other review of systems found to be negative. PHYSICAL EXAMINATION: VITAL SIGNS: Please see below. GENERAL: Pleasant and cooperative. No acute distress. HEENT: PERRL. Extraocular movements intact. Clear conjunctiva CARDIOVASCULAR: Regular rate and rhythm. No murmurs, rubs, or gallops LUNGS: Clear to auscultation bilaterally. No wheezes. No rhonchi ABDOMEN: Soft, nontender, nondistended. Positive bowel sounds. Normal active bow el sounds NEUROLOGICAL: Alert and oriented times three. Cranial nerves II through XII grossly intact. Sensation diminished to light touch and pinprick bilat LE in stocking pattern EXTREMITIES: 5-\5 strength bilateral upper extremities. 3+\5 strength right hip flexion and knee extension, 2/5 ankle DF and 0/5 EHL 3+\5 strength left hip flxeion and knee extension, 2/5 ankle DF and 0/5 EHL (exam limited due to pain) +groin pain with internal rotation of right leg SKIN: left heel with stage 2 ulcer and right heel with unstagebale ulcer LABORATORY DATA: Please see below. ASSESSMENT:74-year-old M with past medical history of bilat THR who presents status post fall with left hip dislocation PLAN: 1.Rehab- PT/OT advance gait and ADLs, maintain posterior hip precautions and use abduction pillow, heel floats, ambulating short distances with assistance 2. Cardiac- hx of HTN c/u Enalapril and ASA -HLD- lopid 3. Neuro- severe peripheral polyneuropathy due to DM with charcot foot on the le ft and bilat foot drop limiting his overall mobility 3. Resp- encourage incentive spirometry, monitor for infection 4. Ortho s/p left hip dislocation, ortho consulted -right hip pain, CT negative for fracture-improving with oral pain meds -repeat right hip x-ray today negative for dislocation/new fracture, patient encouraged to continue participating in therapy -Given persistent need for catheterizations despite antibiotics and flomax, will order Lumbar CT to r/o cauda equina however urinary symptoms may be due to diabetic neuropathy vs infection - recommend outpatient ortho f/u 5. Endo- hx of hypothyroidism c/u Synthroid, dm c/u ISS 6. renal- s/p transplant c/u prednisone and imuran- watch for Luther while on ANKITA-I- stable -citric-acid/sodium chloride 7. pain- tylenol and cymbalta (increased to 90mg daily) , oxycodone prn and 10mg q am in advance of therapy 8. gi ppx- protonix 9. dvt ppx- heparin and teds 10. Hyponatremia- resolved 11. - urinary retention improving since starting Levaquin and Flomax, however patient still requiring catheterization, c/u treatment, will order renal US to r/o hydronephrosis and will increase Flomax dosing, will likely need Garcia upon discharge 12. Skin- patient has developed worsening ulcers on his heels despite preventively offloading them with heelfloat boots and optifoam, will suspend calves on pillow for optimal pressure relief 12. Dispo- 04-14-20 to STR progressing slowly towards goals and will need further rehab Allergies Coded Allergies: No Known Allergies (Unverified , 04/25/18) Vital Signs Vital Signs Date Time Temp Pulse Resp B/P (MAP) Pulse Ox O2 Delivery O2 Flow Rate FiO2 04/15/20 08:54 125/61 04/15/20 08:53 16 04/15/20 06:00 98.2 75 99 Room Air Laboratory Data CBC/BMP Laboratory Tests 04/14/20 11:29 Labs 24H Laboratory Tests 2 04/14/20 11:29: Immature Granulocyte % (Auto) 0.8, Neutrophils (%) (Auto) 82.7H, Lymphocytes (%) (Auto) 10.4L, Monocytes (%) (Auto) 5.9H, Eosinophils (%) (Auto) 0.1, Basophils (%) (Auto) 0.1, Neutrophils # (Auto) 6.5, Lymphocytes # (Auto) 0.8L, Monocytes # (Auto) 0.5, Eosinophils # (Auto) 0.0, Basophils # (Auto) 0.0, Nucleated Red Blood Cells % (auto) 0.0, Anion Gap 7L, Glomerular Filtration Rate 57.8, Calcium Level 8.6L 04/14/20 11:35: Bedside Glucose (Misc Panel) 124H 04/14/20 16:47: Bedside Glucose (Misc Panel) 88 04/14/20 20:41: Bedside Glucose (Misc Panel) 135H 04/15/20 06:48: Bedside Glucose (Misc Panel) 96 04/15/20 08:50: Coronavirus (COVID-19)(PCR) NEGATIVE Microbiology Microbiology 04/07/20 Urine Culture - Final, Complete Klebsiella Pneumoniae Proteus Mirabilis Enterococcus Faecalis Current Medications Current Medications Current Medications Medications (Trade) Dose Ordered Sig/Elieser Route PRN Reason Start Time Stop Time Status Last Admin Dose Admin Acetaminophen (Tylenol Tab) 1,000 mg TID PO 03/30/20 16:00 04/15/20 08:52 Aspirin (Ecotrin) 81 mg DAILY PO 03/31/20 09:00 04/15/20 08:53 Azathioprine (Imuran) 150 mg DAILY PO 03/31/20 09:00 04/15/20 08:52 Bisacodyl (Dulcolax Tab) 5 mg DAILYPRN PRN PO CONSTIPATION 03/30/20 16:15 Brimonidine Tartrate (Alphagan P 0.1%) 1 drop BID OS 03/30/20 21:00 04/15/20 08:54 Citric Acid/ Sodium Citrate (Bicitra) 30 ml BID PO 03/30/20 21:00 04/15/20 08:51 Dextrose (Dextrose 50%) 25 ml ASDIRECTED PRN IV SEE LABEL COMMENTS 03/30/20 16:15 Docusate Sodium (Colace) 100 mg BID PO 03/30/20 21:00 04/08/20 13:34 DC 04/03/20 08:18 Duloxetine HCl (Cymbalta) 60 mg DAILY PO 03/31/20 09:00 04/01/20 11:23 DC 04/01/20 07:36 Duloxetine HCl (Cymbalta) 90 mg DAILY PO 04/02/20 09:00 04/15/20 08:52 Enalapril Maleate (Vasotec) 2.5 mg DAILY PO 03/31/20 09:00 04/15/20 08:54 Gemfibrozil (Lopid) 600 mg BID@0730,1730 PO 03/30/20 17:30 04/15/20 08:52 Glucagon (Glucagon) 1 mg ASDIRECTED PRN SC SEE LABEL COMMENTS 03/30/20 16:15 Glucose (Glucose) 16 GM ASDIRECTED PRN PO SEE LABEL COMMENTS 03/30/20 16:15 Heparin Sodium (Porcine) (Heparin) 5,000 units Q12H SC 03/30/20 21:00 04/10/20 13:22 DC 04/10/20 07:57 Insulin Human Lispro (HumaLOG INSULIN) SEE PROTOCOL TABLE AC SC 03/30/20 17:30 04/14/20 12:20 Insulin Human Lispro (HumaLOG INSULIN) SEE PROTOCOL TABLE QHS SC 03/30/20 21:00 04/03/20 20:45 Lactobacillus Acidophilus (Bacid) 1 ea TID PO 04/08/20 09:00 04/15/20 08:54 Levofloxacin (Levaquin) 750 mg DAILY@06 PO 04/08/20 06:00 04/17/20 06:01 04/15/20 05:35 Levothyroxine Sodium (Synthroid) 100 mcg DAILY@06 PO 03/31/20 06:00 04/15/20 05:35 Lidocaine (Lidoderm Patch) 1 patch DAILY TD 03/31/20 09:00 04/15/20 08:54 Loperamide HCl (Imodium) 4 mg TID PO 04/08/20 21:00 04/08/20 13:34 DC Loperamide HCl (Imodium) 4 mg TID PRN PO loose stools 04/08/20 21:00 04/11/20 10:18 Non-Formulary Medication ( See Comment Field Below ) REMOVE LIDODERM PATCH DAILY@21 XX 03/31/20 21:00 04/14/20 20:44 Oxycodone HCl (Roxicodone, Oxyir) 5 mg Q4HP PRN PO PAIN 03/30/20 16:15 04/14/20 13:02 Oxycodone HCl (Roxicodone, Oxyir) 10 mg DAILY PO 04/02/20 09:00 04/15/20 08:53 Pantoprazole Sodium (Protonix) 40 mg DAILY PO 03/30/20 09:00 04/15/20 08:52 Prednisone (Deltasone) 20 mg Q48H PO 04/01/20 09:00 04/15/20 08:53 Ramelteon (Rozerem) 8 mg QHS PRN PO INSOMNIA 04/04/20 21:45 04/04/20 22:28 Senna (Senokot) 1 tab QHS PO 03/30/20 21:00 04/08/20 13:34 DC 03/30/20 21:50 Tamsulosin HCl (Flomax) 0.4 mg DAILY PO 04/07/20 11:45 04/15/20 08:53 Timolol Maleate (Timoptic 0.5% Ophth Disha) 1 drop BID OS 03/30/20 21:00 04/15/20 08:54 TAQUERIA GIBBS MD Apr 15, 2020 10:52
[2020-04-15] MEDS: oxyCODONE 5MG TAB PO PRN (11:30)
--- NOTE | 2020-04-15 12:33 | IPNPDOC ---
Text Note Date of Service The patient was seen on 04/15/20. NOTE Pt seen and examined. No new overnight events PHYSICAL EXAMINATION: General: The patient is awake, alert, oriented x3 Head and Neck Exam: Extraocular muscles intact. Pupils equally round and reactive to light. Mucous membranes are moist. Neck is supple. There is no jugular venous distention (JVD). Cardiovascular: S1 and S2, regular rate. Trace edema of the bilateral lower extremities. Respiratory: Lungs are clear auscultation bilaterally Abdomen: Soft. Positive bowel sounds. Nontender. No organomegaly. Musculoskeletal: Clubbing of the fingernails, no cyanosis was noted. Central Nervous System (SYSTEMS PROGRAM MANAGER): No focal deficit. Power is 5/5 in all extremities. Slight difficulty in range of motion of left hip ASSESSMENT: 74-year-old male with past medical history of polycystic kidney disease, status post transplant, diabetes mellitus and hypertension is being admitted for left hip dislocation to ARU. PLAN: 1. Left hip dislocation. Secondary to fall, reduced in the ER, orthopedic eval pending in the morning, pain control. Orthopedics advised Abduction pillow while in bed, progressive mobilization with physical therapy with strict dislocation precautions. They advised the patient about natural history of hips, sometimes as hips start to wear, they are easier to dislocate. There is a possibility of re-dislocation. If he re-dislocates, they may need to consider a prosthetic brace until he becomes more stable. 2. Hypoglycemia. Resolved. Cont gluco checks 3. Diabetes mellitus. Sliding scale insulin coverage with meals and at bedtime. 4. Hypertension. Continue enalapril 5. Polycystic kidney disease. Status post renal transplant, continue prednisone and azathioprine. DVT prophylaxis: Heparin subcutaneous Disposition as per primary. VS,Fishbone, I+O VS, Fishbone, I+O Vital Signs Date Time Temp Pulse Resp B/P (MAP) Pulse Ox O2 Delivery O2 Flow Rate FiO2 04/15/20 12:00 16 04/15/20 08:54 125/61 04/15/20 06:00 98.2 75 99 Room Air I&O- Last 24 Hours up to 6 AM 04/15/20 05:59 Intake Total 840 ml Output Total 1575 ml Balance -735 ml JUAN RAGLAND MD Apr 15, 2020 12:33
[2020-04-15 14:00] VITALS: BP 100/60
--- NOTE | 2020-04-15 15:44 | REP ---
Clinical: Urinary retention. Technique: Real time monte scale and color evaluation using curved array transducer. Findings: The bilateral [place] kidneys demonstrate innumerable simple and complex cysts along with hyperechoic residual parenchyma. Right kidney measures 16.3 x 6.6 x 6.6 cm. Left kidney measures 15.0 x 9.8 x 8.4 cm. Transplant kidney in the right lower quadrant measures 13.8 x 6.7 x 7.6 cm bowel significant hydronephrosis, cystic or mass lesion. Bladder is unremarkable and bilateral ureteral jets are identified. Impression: 1. Polycystic kidney changes to the [place] kidneys. 2. Transplant kidney in the right lower quadrant without obvious hydronephrosis. 3. Normal appearance of the bladder. Electronically Signed by Jerson Haywood MD 04/15/2020 03:35 P
[2020-04-15 20:00] VITALS: BP 107/61
[2020-04-15] MEDS ORDERED: TAMSULOSIN 0.4 MG CAP PO ONE (21:00)
[2020-04-15] MEDS: **NOTE PATIENT COMMENT** MISC XX SCH (21:20)
[2020-04-16] MEDS: LEVOTHYROXINE 100MCG TABLET (0.1MG) PO SCH (05:27)
[2020-04-16] MEDS: LevoFLOXacin 750 MG TABLET PO SCH (05:27)
[2020-04-16 05:36] VITALS: BP 105/58
[2020-04-16] MEDS: HumaLOG INSULIN (NovoLOG) PER UNIT SC SCH ×2 (07:30→11:51)
[2020-04-16] MEDS ORDERED: TAMSULOSIN 0.4 MG CAP PO SCH ×2 (09:00→21:00)
[2020-04-16] MEDS: azaTHIOprine 50 MG TAB (J7500) PO SCH (09:42)
[2020-04-16] MEDS: ACETAMINOPHEN 500 MG TAB PO SCH (09:43)
[2020-04-16 09:45] VITALS: BP 105/58
[2020-04-16] MEDS: ASPIRIN 81 MG ENTERIC TAB PO SCH (09:45)
[2020-04-16] MEDS: LACTOBACILLUS ACIDOPHILUS CAP (BACID) PO SCH (09:45)
[2020-04-16] MEDS: PANTOPRAZOLE 40MG TAB (PROTONIX) PO SCH (09:45)
[2020-04-16] MEDS: ENALAPRIL MALEATE 5 MG TAB PO SCH (09:45)
[2020-04-16] MEDS: BICITRA 30ML SOLN UDC PO SCH (09:46)
[2020-04-16] MEDS: oxyCODONE 5MG TAB PO SCH (09:46)
[2020-04-16] MEDS: DULoxetine 30 MG CAP (CYMBALTA) PO SCH (09:46)
[2020-04-16] MEDS: TIMOLOL MALEATE 0.5% OPHTH SOLN 5 ML OS SCH (09:47)
[2020-04-16] MEDS: LIDOCAINE 5% (LIDODERM) PATCH TD SCH (09:47)
[2020-04-16] MEDS: BRIMONIDINE 0.1% OPHTH SOLN 5 ML OS SCH (09:47)
[2020-04-16] MEDS: gemfibroziL 600 MG TAB PO SCH (09:51)
[2020-04-16] MEDS ORDERED: ACET-683 PO (11:06)
[2020-04-16] MEDS ORDERED: RAME8TAB2 PO (11:06)
[2020-04-16] MEDS ORDERED: GLUC1INJ21 SC (11:06)
[2020-04-16] MEDS ORDERED: LEVA750T7 PO (11:06)
[2020-04-16] MEDS ORDERED: INSUHUMDS SC ×2 (11:06)
[2020-04-16] MEDS ORDERED: OXYC-517 PO ×2 (11:06)
[2020-04-16] MEDS ORDERED: CYMB1CAP5 PO (11:06)
[2020-04-16] MEDS ORDERED: ENAL5TAB PO (11:06)
[2020-04-16] MEDS ORDERED: LEVO100T5 PO (11:06)
[2020-04-16] MEDS ORDERED: RISATAB3 PO (11:06)
[2020-04-16] MEDS ORDERED: GEMF600T5 PO (11:06)
[2020-04-16] MEDS ORDERED: Citric Acid/Sodium Citrate PO (11:06)
[2020-04-16] MEDS ORDERED: AZAT50TA2 PO (11:06)
[2020-04-16] MEDS ORDERED: BRIM1OPD OS (11:06)
[2020-04-16] MEDS ORDERED: PRED20TA PO (11:06)
[2020-04-16] MEDS ORDERED: PANT40TA3 PO (11:06)
[2020-04-16] MEDS ORDERED: ASPI81TAEC PO (11:06)
[2020-04-16] MEDS ORDERED: TIMO0.5S29 OS (11:06)
[2020-04-16] MEDS ORDERED: FLOM0.4C39 PO (11:06)
[2020-04-16] MEDS ORDERED: ANTI2TAB16 PO (11:06)
--- NOTE | 2020-04-21 10:10 | REP ---
CT lumbar spine: 04/15/2020. Indication: Low back pain. Urinary retention. Technique: Unenhanced axial CT images of the lumbar spine were obtained with sagittal and coronal reconstructions provided. Comparison: None. Findings: There is no acute fracture, subluxation or dislocation. Vacuum disc phenomenon are present at L2/L3, L4/L5, L5/S1 and minimally at L3/L4. There are no lytic or blastic lesions within the axial lumbar skeleton. Levoscoliosis of the lumbar spine is present with the convexity centered at L3. Multilevel spondylosis is present without severe spinal canal narrowing detected by this technique. Aortoiliac atherosclerotic disease is present. Iliopsoas atrophy as noted. There are multiple densities within or adjacent to the:. Please correlate with previous imaging. Impression: No acute osseous lumbar spine injury. There is no CT evidence of severe spinal canal narrowing. Electronically Signed by Carlos Moore DO 04/21/2020 10:02 A
== END 2020-04-16 13:00 | DRG 949 ==
LOC: M PM&R 15:20
PROVIDERS: ADMIT Physical Medicine & Rehabilitation; ATTEND Physical Medicine & Rehabilitation
DX: T84.021D Dislocation of internal left hip prosthesis, subsequent encounter (principal); Q61.3 Polycystic kidney, unspecified; Z94.0 Kidney transplant status; E87.1 Hypo-osmolality and hyponatremia; W19.XXXD Unspecified fall, subsequent encounter; Y92.009 Unspecified place in unspecified non-institutional (private) residence as the place of occurrence of the external cause; E03.9 Hypothyroidism, unspecified; E11.42 Type 2 diabetes mellitus with diabetic polyneuropathy; M21.371 Foot drop, right foot; M21.372 Foot drop, left foot; Z96.643 Presence of artificial hip joint, bilateral; Z90.49 Acquired absence of other specified parts of digestive tract; Z74.09 Other reduced mobility; Z79.82 Long term (current) use of aspirin; Z79.84 Long term (current) use of oral hypoglycemic drugs; Z79.899 Other long term (current) drug therapy; Z96.641 Presence of right artificial hip joint; Z96.642 Presence of left artificial hip joint; E11.51 Type 2 diabetes mellitus with diabetic peripheral angiopathy without gangrene; R33.9 Retention of urine, unspecified; D64.9 Anemia, unspecified

== ENCOUNTER → 2020-04-17 | Outpatient (REF) | payer MEDICARE, BC, OTHER ==
[~2020-04-17] MED LIST changes: +ACET-683 PO; +ANTI2TAB16 PO; +ASPI81TAEC PO; +AZAT50TA2 PO; +BRIM1OPD OS; +CYMB1CAP5 PO; +Citric Acid/Sodium Citrate PO; +ENAL5TAB PO; +FLOM0.4C39 PO; +GLUC1INJ21 SC; +INSUHUMDS SC; +LEVA750T7 PO; +LEVO100T5 PO; +OXYC-517 PO; +PANT40TA3 PO; +RAME8TAB2 PO; +RISATAB3 PO; +TIMO0.5S29 OS
[2020-04-17 10:13] LABS: BLOOD UREA NITROGEN 12 MG/DL (7-18); CARBON DIOXIDE LEVEL 28 MEQ/L (21-32); CHLORIDE LEVEL 106 MEQ/L (98-107); GLOMERULAR FILTRATION RATE > 60.0 (>42); GLUCOSE, FASTING 123 MG/DL (70-100); POTASSIUM SERUM 4.1 MEQ/L (3.5-5.1); SODIUM LEVEL 139 MEQ/L (136-145)
== END ==
LOC: SKLAB5 08:44
PROVIDERS: ATTEND Internal Medicine
DX: Z79.899 Other long term (current) drug therapy (principal)

== ENCOUNTER → 2020-04-20 | Outpatient (REF) ==
[2020-04-20 07:37] LABS: HEMATOCRIT 24.5 % (42.0-52.0); HEMOGLOBIN 7.8 g/dl (13.5-17.5); MEAN CORPUSCULAR HGB CONC 31.8 g/dl (32.0-36.5); MEAN CORPUSCULAR VOLUME 91.1 fl (80.0-96.0); PLATELET COUNT, AUTOMATED 126 10^3/uL (150-450); RED BLOOD COUNT 2.69 10^6/uL (4.30-6.10); WHITE BLOOD COUNT 4.5 10^3/uL (4.0-10.0)
[2020-04-20 08:02] LABS: ALBUMIN 1.9 GM/DL (3.2-5.2); BLOOD UREA NITROGEN 14 MG/DL (7-18); CALCIUM LEVEL 8.1 MG/DL (8.8-10.2); CARBON DIOXIDE LEVEL 27 MEQ/L (21-32); CHLORIDE LEVEL 106 MEQ/L (98-107); CREATININE FOR GFR 0.71 MG/DL (0.70-1.30); GLOMERULAR FILTRATION RATE > 60.0 (>42); GLUCOSE, FASTING 122 MG/DL (70-100); PHOSPHORUS LEVEL 2.7 MG/DL (2.5-4.9); POTASSIUM SERUM 4.5 MEQ/L (3.5-5.1); SODIUM LEVEL 138 MEQ/L (136-145)
[2020-04-20 08:17] LABS: HEMOGLOBIN A1c 5.8 %
== END ==
LOC: SKLAB5 06:12
PROVIDERS: ATTEND Internal Medicine
DX: N18.9 Chronic kidney disease, unspecified (principal)

== ENCOUNTER → 2020-04-22 | Outpatient (REF) ==
[2020-04-22 09:40] LABS: HEMATOCRIT 25.5 % (42.0-52.0); MEAN CORPUSCULAR HEMOGLOBIN 28.8 pg (27.0-33.0); MEAN CORPUSCULAR HGB CONC 31.4 g/dl (32.0-36.5); MEAN CORPUSCULAR VOLUME 91.7 fl (80.0-96.0); PLATELET COUNT, AUTOMATED 123 10^3/uL (150-450); RED BLOOD COUNT 2.78 10^6/uL (4.30-6.10)
== END ==
LOC: SKLAB5 07:05
PROVIDERS: ATTEND Internal Medicine
DX: D64.9 Anemia, unspecified (principal)

== ENCOUNTER → 2020-05-04 | Outpatient (REF) ==
[2020-05-04 09:28] LABS: BLOOD UREA NITROGEN 19 MG/DL (7-18); CALCIUM LEVEL 8.6 MG/DL (8.8-10.2); CARBON DIOXIDE LEVEL 27 MEQ/L (21-32); CHLORIDE LEVEL 103 MEQ/L (98-107); CREATININE FOR GFR 0.81 MG/DL (0.70-1.30); GLOMERULAR FILTRATION RATE > 60.0 (>42); GLUCOSE, FASTING 125 MG/DL (70-100); PHOSPHORUS LEVEL 3.4 MG/DL (2.5-4.9); POTASSIUM SERUM 4.2 MEQ/L (3.5-5.1); SODIUM LEVEL 137 MEQ/L (136-145)
== END ==
LOC: SKLAB5 06:40
PROVIDERS: ATTEND Internal Medicine
DX: S37.009A Unspecified injury of unspecified kidney, initial encounter (principal); Y92.89 Other specified places as the place of occurrence of the external cause; Y93.89 Activity, other specified; Y99.8 Other external cause status; X58.XXXA Exposure to other specified factors, initial encounter

== ENCOUNTER → 2020-05-18 | Outpatient (REF) | payer BC, MEDICARE, OTHER ==
[~2020-05-18] MED LIST changes: +ENAL1TAB46 PO; -ENAL2.5T PO; +ENAL5TA PO; -ENAL5TAB PO; +PANT40TA29 PO; -PANT40TA3 PO
[2020-08-10 11:07] LABS: BLOOD UREA NITROGEN 25 MG/DL (7-18); CALCIUM LEVEL 8.6 MG/DL (8.8-10.2); CARBON DIOXIDE LEVEL 25 MEQ/L (21-32); CHLORIDE LEVEL 104 MEQ/L (98-107); CREATININE FOR GFR 0.97 MG/DL (0.70-1.30); GLOMERULAR FILTRATION RATE > 60.0 (>42); GLUCOSE, FASTING 116 MG/DL (70-100); PHOSPHORUS LEVEL 3.9 MG/DL (2.5-4.9); POTASSIUM SERUM 4.4 MEQ/L (3.5-5.1); SODIUM LEVEL 136 MEQ/L (136-145)
== END ==
LOC: SKLAB5 06:00
PROVIDERS: ATTEND Internal Medicine
DX: N17.9 Acute kidney failure, unspecified (principal)

== ENCOUNTER → 2020-05-18 | Outpatient (REF) | LOC: SKLAB5 08:32 | PROVIDERS: ATTEND Internal Medicine | DX: N17.9 Acute kidney failure, unspecified (principal) ==

== ENCOUNTER → 2020-05-24 | Outpatient (REF) | payer MEDICARE, BC, OTHER ==
[2020-08-07 11:58] LABS: HEMATOCRIT 26.1 % (42.0-52.0); HEMOGLOBIN 8.3 g/dl (13.5-17.5); MEAN CORPUSCULAR HEMOGLOBIN 29.6 pg (27.0-33.0); MEAN CORPUSCULAR HGB CONC 31.8 g/dl (32.0-36.5); MEAN CORPUSCULAR VOLUME 93.2 fl (80.0-96.0); WHITE BLOOD COUNT 5.6 10^3/uL (4.0-10.0)
[2020-08-07 11:59] LABS: PLATELET COUNT, AUTOMATED 268 10^3/uL (150-450)
[2020-08-19 14:05] LABS: BLOOD UREA NITROGEN 10 MG/DL (7-18); CALCIUM LEVEL 8.3 MG/DL (8.8-10.2); CARBON DIOXIDE LEVEL 28 MEQ/L (21-32); CHLORIDE LEVEL 107 MEQ/L (98-107); CREATININE FOR GFR 0.69 MG/DL (0.70-1.30); GLOMERULAR FILTRATION RATE > 60.0 (>42); GLUCOSE, FASTING 168 MG/DL (70-100); SODIUM LEVEL 140 MEQ/L (136-145)
== END ==
LOC: SKLAB5 07:00
PROVIDERS: ATTEND Internal Medicine
DX: N18.3 Chronic kidney disease, stage 3 (moderate) (principal); D63.1 Anemia in chronic kidney disease

== ENCOUNTER → 2020-06-01 | Outpatient (REF) | payer MEDICARE, BC, OTHER | LOC: CANPREREF → SKLAB5 06:00 | PROVIDERS: ATTEND Internal Medicine | DX: N18.9 Chronic kidney disease, unspecified (principal) ==

== ENCOUNTER → 2020-06-01 | Outpatient (REF) | payer BC, MEDICARE, OTHER | LOC: SKLAB5 10:26 | PROVIDERS: ATTEND Internal Medicine | DX: N18.9 Chronic kidney disease, unspecified (principal) ==

== ENCOUNTER → 2020-06-11 | Outpatient (REF) ==
[2020-06-11 15:52] LABS: APPEARANCE, URINE TURBID (CLEAR); BACTERIA, URINE AUTO NEGATIVE (NEGATIVE); BILIRUBIN, URINE AUTO NEGATIVE (NEGATIVE); BLOOD, URINE BLOOD 3+ (NEGATIVE); COLOR, URINE YELLOW (YELLOW); GLUCOSE, URINE (UA) AUTO 1+ mg/dL (NEGATIVE); KETONE, URINE AUTO NEGATIVE (NEGATIVE); LEUKOCYTE ESTERASE, URINE AUTO 2+ (NEGATIVE); NITRITE, URINE AUTO NEGATIVE (NEGATIVE); PROTEIN, URINE AUTO 2+ mg/dL (NEGATIVE); RBC, URINE AUTO TNTC /HPF (0-3); SPECIFIC GRAVITY URINE AUTO 1.021 (1.002-1.035); SQUAMOUS EPITHELIAL CELL UR AU 0 /HPF (0-6); UROBILINOGEN, URINE AUTO 0.2 mg/dL (0.0-2.0); WBC, URINE AUTO TNTC /HPF (0-3)
== END ==
LOC: SKLAB5 15:02
PROVIDERS: ATTEND Internal Medicine
DX: R31.9 Hematuria, unspecified (principal)

== ENCOUNTER → 2020-06-17 | Outpatient (REF) ==
[2020-06-17 11:02] LABS: HEMATOCRIT 28.2 % (42.0-52.0); MEAN CORPUSCULAR HEMOGLOBIN 30.4 pg (27.0-33.0); MEAN CORPUSCULAR HGB CONC 31.9 g/dl (32.0-36.5); MEAN CORPUSCULAR VOLUME 95.3 fl (80.0-96.0); PLATELET COUNT, AUTOMATED 195 10^3/uL (150-450); RED BLOOD COUNT 2.96 10^6/uL (4.30-6.10); WHITE BLOOD COUNT 4.7 10^3/uL (4.0-10.0)
[2020-06-17 11:31] LABS: ALBUMIN 2.1 GM/DL (3.2-5.2); BLOOD UREA NITROGEN 24 MG/DL (7-18); CALCIUM LEVEL 8.1 MG/DL (8.8-10.2); CARBON DIOXIDE LEVEL 21 MEQ/L (21-32); CHLORIDE LEVEL 104 MEQ/L (98-107); CREATININE FOR GFR 0.85 MG/DL (0.70-1.30); GLOMERULAR FILTRATION RATE > 60.0 (>42); GLUCOSE, FASTING 131 MG/DL (70-100); PHOSPHORUS LEVEL 3.5 MG/DL (2.5-4.9); POTASSIUM SERUM 3.8 MEQ/L (3.5-5.1); SODIUM LEVEL 135 MEQ/L (136-145)
[2020-06-17 12:11] LABS: HEMOGLOBIN A1c 6.2 %
== END ==
LOC: SKLAB5 06:36
PROVIDERS: ATTEND Internal Medicine
DX: D64.9 Anemia, unspecified (principal); E11.9 Type 2 diabetes mellitus without complications

== ENCOUNTER → 2020-06-23 | Outpatient (REF) ==
--- NOTE | 2020-07-13 07:29 | REP ---
LEFT TOES SERIES: 06/23/20 CLINICAL: Left great toe wound and deformity. TECHNIQUE: AP, lateral, oblique views of the left first toe. FINDINGS: The first toe demonstrates somewhat destructive changes at the level of the phalanges with acute angulation at the joints and overlying soft tissue swelling. There also appear to be transverse fractures involving the third and fourth toe proximal phalanges which are incompletely evaluated. These findings may represent prior injuries however osteomyelitis involving the first toe cannot definitively be excluded. IMPRESSION: Irregularities as described above suggesting possible fractures as well as destructive changes. Differential diagnosis includes trauma as well as underlying osteomyelitis. MTDD
== END ==
LOC: SKLAB5 12:10
PROVIDERS: ATTEND Internal Medicine
DX: S91.102A Unspecified open wound of left great toe without damage to nail, initial encounter (principal)

== ENCOUNTER → 2020-06-24 | Outpatient (REF) ==
[2020-06-24 08:48] LABS: C REACTIVE PROTEIN QUANTITATIV 0.57 MG/DL (0.00-0.30); CHOLESTEROL RISK RATIO 3.578 (<5)
== END ==
LOC: SKLAB5 07:14
PROVIDERS: ATTEND Internal Medicine
DX: E78.5 Hyperlipidemia, unspecified (principal)

== ENCOUNTER → 2020-07-01 | Outpatient (REF) ==
[2020-07-01 08:33] LABS: ALBUMIN 2.5 GM/DL (3.2-5.2); BLOOD UREA NITROGEN 22 MG/DL (7-18); CALCIUM LEVEL 8.4 MG/DL (8.8-10.2); CARBON DIOXIDE LEVEL 25 MEQ/L (21-32); CHLORIDE LEVEL 107 MEQ/L (98-107); GLOMERULAR FILTRATION RATE > 60.0 (>42); GLUCOSE, FASTING 105 MG/DL (70-100); PHOSPHORUS LEVEL 3.3 MG/DL (2.5-4.9); POTASSIUM SERUM 4.5 MEQ/L (3.5-5.1); SODIUM LEVEL 140 MEQ/L (136-145)
== END ==
LOC: SKLAB5 07:58
PROVIDERS: ATTEND Internal Medicine
DX: N18.9 Chronic kidney disease, unspecified (principal)

== ENCOUNTER → 2020-07-09 | Outpatient (REF) | payer MEDICARE, BC, OTHER | LOC: M LAB REF 12:41 | PROVIDERS: ATTEND Surgery | DX: M86.172 Other acute osteomyelitis, left ankle and foot (principal) | CPT/HCPCS: 11042; 11044; 88304; 88311; G0463 ==

== ENCOUNTER → 2020-07-15 | Outpatient (REF) ==
[2020-07-15 08:07] LABS: HEMATOCRIT 30.8 % (42.0-52.0); HEMOGLOBIN 10.1 g/dl (13.5-17.5); MEAN CORPUSCULAR HEMOGLOBIN 30.4 pg (27.0-33.0); MEAN CORPUSCULAR HGB CONC 32.8 g/dl (32.0-36.5); MEAN CORPUSCULAR VOLUME 92.8 fl (80.0-96.0); PLATELET COUNT, AUTOMATED 146 10^3/uL (150-450); RED BLOOD COUNT 3.32 10^6/uL (4.30-6.10); WHITE BLOOD COUNT 5.2 10^3/uL (4.0-10.0)
== END ==
LOC: SKLAB5 07:25
PROVIDERS: ATTEND Internal Medicine
DX: Q61.3 Polycystic kidney, unspecified (principal); D64.9 Anemia, unspecified

== ENCOUNTER → 2020-07-15 | Outpatient (CLI) | payer MEDICARE, BC, OTHER ==
--- NOTE | 2020-07-21 16:25 | REP ---
UNILATERAL LEFT LOWER EXTREMITY ARTERIAL DOPPLER ULTRASOUND HISTORY: Diabetic with left foot ulcer. FINDINGS: Ankle-brachial index could not be achieved due to a noncompressible vessel. Reverse flow is seen in the distal posterior tibial artery. Monophasic waveforms are noted at and distal to the tibioperoneal trunk on the left. Extensive atherosclerotic plaquing is noted. There is a significant 9.6 to 1 velocity stenosis ratio in the popliteal artery. A 3 to 1 velocity stenosis is observed in the proximal LAURIE. Only minimal flow is seen in the distal posterior tibial artery. PEAK SYSTOLIC VELOCITY Left cm/s Left CSA PSV 62 Profunda 59 Proximal SFA 87 Mid SFA 72 Distal SFA 33 Popliteal 26/245 Proximal LAURIE 32/94 Tibioperoneal trunk 14 Proximal LIBRARY ACQUISITIONS TECHNICIAN 14 Distal LIBRARY ACQUISITIONS TECHNICIAN, reversed 9 Distal LAURIE 74 MTDD
== END ==
LOC: M RAD 13:22
PROVIDERS: ATTEND Surgery
DX: E11.621 Type 2 diabetes mellitus with foot ulcer (principal); L97.524 Non-pressure chronic ulcer of other part of left foot with necrosis of bone

== ENCOUNTER → 2020-07-19 | Outpatient (REF) | LOC: SKLAB5 10:52 | PROVIDERS: ATTEND Internal Medicine | DX: Z20.828 Contact with and (suspected) exposure to other viral communicable diseases (principal) ==